=== PATIENT | male | born 1940 | race Caucasian/White ===

== ENCOUNTER 2016-05-16 04:46 | Inpatient (IN) | payer OTHER, MEDICARE ==
--- NOTE | 2016-05-16 05:10 | PDOC ---
History of Present Illness - General History Source: Patient Exam Limitations: No Limitations - History of Present Illness Initial Comments: 05/16/16 05:17 The patient is a 75 year old male with a significant PMH of hyperlipidemia, diet controlled prediabetes, obesity, peripheral neuropathy presented to the ED today complaining of generalized weakness. The patient recounts that hes had two falls within the last day. The first occurred 24 hours ago while he was in the shower and the second occurred when he rolled out of bed. The patient recalls both falls. He denies LOC and hitting his head. He states that his knees buckled out from under him. The patient also notes occasional sharp chest pain. Denies: nausea, vomiting, diarrhea, abdominal pain. PCP: Dr. Omar Lovett <Emili Mercer - Last Filed: 05/16/16 05:21> <Freya Cardenas - Last Filed: 05/16/16 06:48> - General History Source: Patient <Fan Gandara - Last Filed: 05/16/16 19:37> - General Chief Complaint: Injury Stated Complaint: FALL Time Seen by Provider: 05/16/16 04:59 Past History <Emili Mercer - Last Filed: 05/16/16 05:21> <Freya Cardenas - Last Filed: 05/16/16 06:48> - Past Medical History Anemia: No Asthma: No Cancer: Yes (PROSTATE) Cardiac Disorders: No CVA: No COPD: No CHF: No Dementia: No Diabetes: Yes (Borderline, peripheral neuropathy) GI Disorders: Yes (COLON POLYPS) Disorders: No HTN: Yes Hypercholesterolemia: Yes Liver Disease: No Seizures: No Thyroid Disease: No Other medical history: arthritis r-knee, scoliosis - Surgical History Abdominal Surgery: No Appendectomy: No Cardiac Surgery: No Cholecystectomy: No Lung Surgery: No Neurologic Surgery: No Orthopedic Surgery: Yes (Bilaterl wrist, HIP FRACTURE 2011) - Immunization History Immunization Up to Date: Yes - Psycho/Social/Smoking Cessation Hx Suicidal Ideation: No Smoking Status: No Smoking History: Unknown if ever smoked Have you smoked in the past 12 months: No Number of Cigarettes Smoked Daily: 0 If you are a former smoker, when did you quit?: 1984 Hx Alcohol Use: No Drug/Substance Use Hx: No Substance Use Type: None Hx Substance Use Treatment: No <Fan Gandara - Last Filed: 05/16/16 19:37> - Past Medical History Allergies/Adverse Reactions: Allergies Allergy/AdvReac Type Severity Reaction Status Date / Time No Known Allergies Allergy Verified 04/14/12 09:57 Home Medications: Ambulatory Orders Cholecalciferol (Vitamin D3) [Vitamin D] 1,000 unit PO DAILY 04/14/12 Cyanocobalamin [Vitamin B12 -] 1,000 mcg PO DAILY 04/14/12 Pravastatin Sodium [Pravachol -] 20 mg PO HS #0 tablet 04/23/12 Ascorbate Calcium [Vitamin C] 1,000 mg PO DAILY 02/21/15 Docosahexanoic Acid/Epa [Fish Oil Softgel] 1,200 mg PO DAILY 02/21/15 Multivit-Min/FA/Lycopene/Lut [Centrum Silver Tablet] 1 each PO DAILY 02/21/15 Ramipril 2.5 mg PO DAILY 02/21/15 Aspirin [ASA -] 81 mg PO DAILY #0 tab.chew 02/22/15 Alendronate Sodium [Fosamax] 70 mg PO WEEKLY 05/16/16 Multivit-Min/FA/Lycopene/Lut [Centrum Silver Tablet] 1 each PO DAILY 05/16/16 Review of Systems - Review of Systems Able to Perform ROS?: Yes Comments:: 05/16/16 05:17 CONSTITUTIONAL: +Generalized weakness. Absent: fever, chills, diaphoresis, malaise, loss of appetite HEENT: Absent: rhinorrhea, nasal congestion, throat pain, throat swelling, difficulty swallowing, mouth swelling, ear pain, eye pain, visual Changes CARDIOVASCULAR: Absent: chest pain, syncope, palpitations, irregular heart rate, lightheadedness , peripheral edema RESPIRATORY: Absent: cough, shortness of breath, dyspnea with exertion, orthopnea, wheezing, stridor, hemoptysis GASTROINTESTINAL: Absent: abdominal pain, abdominal distension, nausea, vomiting, diarrhea, constipation, melena, hematochezia GENITOURINARY: Absent: dysuria, frequency, urgency, hesitancy, hematuria, flank pain, genital pain MUSCULOSKELETAL: Absent: myalgia, arthralgia, joint swelling SKIN: Absent: rash, itching, pallor NEUROLOGIC: Absent: headache, focal weakness or paresthesias, dizziness, unsteady gait, seizure, mental status changes, bladder or bowel incontinence PSYCHIATRIC: Absent: anxiety, depression, suicidal or homicidal ideation, hallucinations. Is the patient limited Indonesian proficient: No <Emili Mercer - Last Filed: 05/16/16 05:21> *Physical Exam - Vital Signs Last Vital Signs Temp Pulse Resp BP Pulse Ox 98.3 F 93 H 18 131/74 97 05/16/16 05:00 05/16/16 05:00 05/16/16 05:00 05/16/16 05:00 05/16/16 05:00 - Physical Exam Comments: 05/16/16 05:18 GENERAL: Well developed, well nourished. Awake and alert. No acute distress. HEENT: Normocephalic, atraumatic. PERRLA, EOMI. No conjunctival pallor. Sclera are non- icteric. Moist mucous membranes. Oropharynx is clear. No raccoon or martin sign.No hemotympanum. NECK: Supple. Full ROM. No JVD. Carotid pulses 2+ and symmetric, without bruits. No thyromegaly. No lymphadenopathy. No C spine tenderness. CARDIOVASCULAR: Regular rate and rhythm. No murmurs, rubs, or gallops. Distal pulses are 2+ and symmetric. No chest wall crepitus. PULMONARY: No evidence of respiratory distress. Lungs clear to auscultation bilaterally. No wheezing, rales or rhonchi. ABDOMINAL: Soft. Non-tender. Non-distended. No rebound or guarding. No organomegaly. Normoactive bowel sounds. MUSCULOSKELETAL Normal range of motion at all joints. No bony deformities or tenderness. No CVA tenderness. Pelvis is stable. Negative rock. EXTREMITIES: No cyanosis. No clubbing. No edema. No calf tenderness. SKIN: Warm and dry. Normal capillary refill. No rashes. No jaundice. NEUROLOGICAL: Alert, awake, appropriate. Cranial nerves 2-12 intact. No deficits to light touch and temperature in face. PSYCHIATRIC: Cooperative. Good eye contact. Appropriate mood and affect. <Emili Mercer - Last Filed: 05/16/16 05:21> - Vital Signs Last Vital Signs Temp Pulse Resp BP Pulse Ox 98.3 F 93 H 18 131/74 97 05/16/16 05:00 05/16/16 05:00 05/16/16 05:00 05/16/16 05:00 05/16/16 05:00 <Freya Cardenas - Last Filed: 05/16/16 06:48> - Vital Signs Last Vital Signs Temp Pulse Resp BP Pulse Ox 98.3 F 93 H 18 131/74 97 05/16/16 05:00 05/16/16 05:00 05/16/16 05:00 05/16/16 05:00 05/16/16 05:00 <Fan Gandara - Last Filed: 05/16/16 19:37> Heart Score/ECG Review - ECG Impressions Comment:: 05/16/16 05:21 Sinus rhythm with 1st degree AV block @ 92 bpm. Otherwise normal ECG. <Emili Mercer - Last Filed: 05/16/16 05:21> ED Treatment Course - LABORATORY CBC & Chemistry Diagram: 05/16/16 05:16 05/16/16 05:16 - ADDITIONAL ORDERS Additional order review: Laboratory Results 05/16/16 05:16 INR 1.16 H 05/16/16 05:16 RBC 4.78 D MCV 93.5 MCHC 32.7 RDW 14.2 MPV 7.3 L Neutrophils % 83.4 H Lymphocytes % 8.5 D Monocytes % 7.3 Eosinophils % 0.4 D Basophils % 0.4 - RADIOLOGY Radiograph Interpretation: 05/16/16 06:48 EXAM: CT brain without contrast Reviewed by Imaging care consultant: FINDINGS: Involutional changes. No bleed. No mass. No visible acute infarct. No shift or herniation. Osseous structures are intact. EXAM: CT cervical spine without contrast Reviewed by Imaging care consultant: FINDINGS: Negative for cervical fracture or malalignment. EXAM: CT lumbar spine without contrast Reviewed by Imaging care consultant: FINDINGS: Negative for lumbar fracture or malalignment. No definite disc herniations. <Freya Cardenas - Last Filed: 05/16/16 06:48> - LABORATORY CBC & Chemistry Diagram: 05/16/16 05:16 05/16/16 05:16 <Fan Gandara - Last Filed: 05/16/16 19:37> Medical Decision Making - Medical Decision Making 05/16/16 19:37 Dr. Gandara: The scribe's documentation has been prepared under my direction and personally reviewed by me in its entirery. I confirm that the note above accurately reflects all work, treatment, procedures, and medical decision making performed by me. <Fan Gandara - Last Filed: 05/16/16 19:37> *DC/Admit/Observation/Transfer - Attestations Scribe Attestion: 05/16/16 05:18 Documentation prepared by Emili Mercer, acting as medical sales associate for Fan Gandara MD/DO. <Emili Mercer - Last Filed: 05/16/16 05:21> <Freya Cardenas - Last Filed: 05/16/16 06:48> <Fan Gandara - Last Filed: 05/16/16 19:37> Diagnosis at time of Disposition: Unable to ambulate Accidental fall Qualifiers: Encounter type: initial encounter Qualified Code(s): W19.XXXA - Unspecified fall, initial encounter - Discharge Dispostion Condition at time of disposition: Stable - Referrals
[2016-05-16 05:35] VITALS: BMI 34.8
[2016-05-16 05:54] LABS: BASOPHIL 0.4 % (0-2.0); EOSINOPHIL 0.4 % (0-4.5); MCH 30.6 pg (25.7-33.7); MCHC 32.7 g/dl (32.0-35.9); MEAN CELL VOLUME 93.5 fl (80-96); MEAN PLT VOLUME 7.3 fl (7.5-11.1); NEUTROPHILS 83.4 % (42.8-82.8); PLATELET COUNT 208 K/MM3 (134-434); RDW 14.2 % (11.9-15.9); WHITE BLOOD COUNT 11.3 K/mm3 (4.0-10.0)
[2016-05-16 06:11] LABS: INR 1.16 (0.82-1.09); PROTHROMBIN TIME (PATIENT) 12.8 SEC (9.98-11.88)
[2016-05-16 06:51] LABS: URINE APPEARANCE CLEAR; URINE BILIRUBIN NEGATIVE (NEGATIVE); URINE BLOOD NEGATIVE (NEGATIVE); URINE COLOR YELLOW; URINE GLUCOSE (UA) NEGATIVE (NEGATIVE); URINE KETONE 1+ (NEGATIVE); URINE LEUK ESTERASE NEGATIVE (NEGATIVE); URINE NITRITE NEGATIVE (NEGATIVE); URINE PROTEIN NEGATIVE (NEGATIVE); URINE UROBILINOGEN NEGATIVE E.U./dl (0.2-1.0)
[2016-05-16 07:00] LABS: ALBUMIN 3.8 g/dl (3.4-5.0); ALK PHOS 62 U/L (45-117); ANION GAP 7 (8-16); BILIRUBIN,TOTAL 0.9 mg/dL (0.2-1.0); CALCIUM 8.7 mg/dL (8.5-10.1); CO2 27 mmol/L (21-32); CREATININE 0.9 mg/dL (0.7-1.3); GLUCOSE,RANDOM 160 mg/dL (74-106); MAGNESIUM 2.2 mg/dL (1.8-2.4); SGOT/AST 21 U/L (15-37); SGPT/ALT 28 U/L (12-78); TOT PROT 6.6 g/dl (6.4-8.2)
[2016-05-16 07:03] LABS: TROPONIN I 0.02 ng/ml (0.00-0.05)
--- NOTE | 2016-05-16 08:27 | PDOC ---
*Physical Exam - Vital Signs Last Vital Signs Temp Pulse Resp BP Pulse Ox 98.3 F 93 H 18 131/74 97 05/16/16 05:00 05/16/16 05:00 05/16/16 05:00 05/16/16 05:00 05/16/16 05:00 - Physical Exam Comments: 05/16/16 08:24 Vital signs normal. Exam unchanged, limited range of motion of the legs secondary to generalized pain, no focal tenderness or deformity Neurovascularly intact ED Treatment Course - LABORATORY CBC & Chemistry Diagram: 05/16/16 05:16 05/16/16 05:16 - ADDITIONAL ORDERS Additional order review: Laboratory Results 05/16/16 05/16/16 05/16/16 06:42 05:16 05:16 INR 1.16 H Sodium 138 Potassium 4.6 Chloride 104 Carbon Dioxide 27 Anion Gap 7 L BUN 18 Creatinine 0.9 D Creat Clearance w eGFR > 60 Random Glucose 160 H Calcium 8.7 Magnesium 2.2 Total Bilirubin 0.9 D AST 21 D ALT 28 D Alkaline Phosphatase 62 D Creatine Kinase 448 H CK-MB (CK-2) 5.133 H Troponin I 0.02 Total Protein 6.6 Albumin 3.8 D Lipase 117 Urine Color Yellow Urine Appearance Clear Urine pH 6.0 Ur Specific [place] 1.019 Urine Protein Negative Urine Glucose (UA) Negative Urine Ketones 1+ H Urine Blood Negative Urine Nitrite Negative Urine Bilirubin Negative Urine Urobilinogen Negative Ur Leukocyte Esterase Negative Alcohol, Quantitative Blood Type Antibody Screen 05/16/16 05/16/16 05:16 05:16 INR Sodium Potassium Chloride Carbon Dioxide Anion Gap BUN Creatinine Creat Clearance w eGFR Random Glucose Calcium Magnesium Total Bilirubin AST ALT Alkaline Phosphatase Creatine Kinase CK-MB (CK-2) Troponin I Total Protein Albumin Lipase Urine Color Urine Appearance Urine pH Ur Specific [place] Urine Protein Urine Glucose (UA) Urine Ketones Urine Blood Urine Nitrite Urine Bilirubin Urine Urobilinogen Ur Leukocyte Esterase Alcohol, Quantitative < 5.0 Blood Type O POSITIVE Antibody Screen Negative 05/16/16 05:16 RBC 4.78 D MCV 93.5 MCHC 32.7 RDW 14.2 MPV 7.3 L Neutrophils % 83.4 H Lymphocytes % 8.5 D Monocytes % 7.3 Eosinophils % 0.4 D Basophils % 0.4 Medical Decision Making - Medical Decision Making 05/16/16 08:24 Received signout on this 75-year-old male who presented with 2 falls yesterday, limited ability now to ambulate independently secondary to generalized weakness and pain. Trauma imaging including head CT, cervical spine CT, and lumbar spine CT showed no acute abnormalities. Chest x-ray showed no acute abnormalities. Plan at signout was to follow-up labs and admit given his inability to ambulate. Labs are within normal limits, white count 11.3, CK slightly elevated likely from falls, troponin negative. Urinalysis clear. Will proceed with admission, Dr. Lovett's service contacted. 05/16/16 09:27 Accepted for inpatient med/surg by Dr. Sevilla. Added pelvis xray given h/o THR and falls. *DC/Admit/Observation/Transfer Diagnosis at time of Disposition: Unable to walk Accidental fall Qualifiers: Encounter type: initial encounter Qualified Code(s): W19.XXXA - Unspecified fall, initial encounter - Discharge Dispostion Admit: Yes - Referrals Referrals: Omar Lovett MD [Primary Care Provider] - - Patient Instructions - Post Discharge Activity
[2016-05-16 09:00] LABS: ACETONE SERUM NEGATIVE (NEGATIVE)
[2016-05-16] MEDS ORDERED: ONDANSETRON 4 MG/2 ML VIAL IVPB PRN (10:00)
--- NOTE | 2016-05-16 10:08 | HP ---
Admitting History and Physical - Primary Care Physician PCP: Omar Lovett - Admission Chief Complaint: I fell History of Present Illness: Mr Villalba is a 75 year old male who comes in with repeated falls. He was taking a shower yesterday and had a mechanical slip with a fall. He states both his legs went different ways. He did not hit his head, he did not have syncope or loss of consciousness. He was unable to get up and required the fire department to get him up. He was helped to bed and while he was lying in bed he rolled off the bed and had a second fall. Again there was no head trauma. After this he came in. He says he hurts "everywhere" and cannot tell me if one area hurts more than the other. He says he hurts in his back, chest, abdomen, arms, and legs. He denies lightheadedness, chest pressure, shortness of breath, nausea , vomiting, diarrhea, constipation, difficulty or pain on urination. He says his right leg is chronically swollen and the fire department noted his left leg was swollen yesterday. History Source: Patient Limitations to Obtaining History: No Limitations - Past Medical History Cardiovascular: Yes: HTN Renal/: Yes: Other (prostate cancer) Musculoskeletal: Yes: Other (neuropathy) Endocrine: Yes: Diabetes Mellitus (diet controlled) - Past Surgical History Past Surgical History: Yes: Joint Replacement (R hip) - Smoking History Smoking history: Unknown if ever smoked Have you smoked in the past 12 months: No Aproximately how many cigarettes per day: 0 If you are a former smoker, when did you quit?: 1984 - Alcohol/Substance Use Hx Alcohol Use: No History of Substance Use: reports: None - Social History Usual Living Arrangement: Yes: Alone ADL: Independent History of Recent Travel: No Home Medications - Allergies Allergies/Adverse Reactions: Allergies Allergy/AdvReac Type Severity Reaction Status Date / Time No Known Allergies Allergy Verified 04/14/12 09:57 - Home Medications Home Medications: Ambulatory Orders Cholecalciferol (Vitamin D3) [Vitamin D] 1,000 unit PO DAILY 04/14/12 Cyanocobalamin [Vitamin B12 -] 1,000 mcg PO DAILY 04/14/12 Pravastatin Sodium [Pravachol -] 20 mg PO HS #0 tablet 04/23/12 Ascorbate Calcium [Vitamin C] 1,000 mg PO DAILY 02/21/15 Docosahexanoic Acid/Epa [Fish Oil Softgel] 1,200 mg PO DAILY 02/21/15 Multivit-Min/FA/Lycopene/Lut [Centrum Silver Tablet] 1 each PO DAILY 02/21/15 Ramipril 2.5 mg PO DAILY 02/21/15 Alendronate Sodium [Fosamax] 70 mg PO ASDIR 02/22/15 Aspirin [ASA -] 81 mg PO DAILY #0 tab.chew 02/22/15 Alendronate Sodium [Fosamax] 70 mg PO WEEKLY 05/16/16 Multivit-Min/FA/Lycopene/Lut [Centrum Silver Tablet] 1 each PO DAILY 05/16/16 Family Disease History - Family Disease History Family Disease History: Other: Father (, unknown causes), Mother ( , unknown causes) Review of Systems Findings/Remarks: Full review of systems obtained, as per HPI and otherwise negative Physical Examination Vital Signs: Vital Signs Temperature 98.3 F 05/16/16 05:00 Pulse Rate 96 H 05/16/16 08:33 Respiratory Rate 19 05/16/16 08:33 Blood Pressure 116/76 05/16/16 08:33 O2 Sat by Pulse Oximetry (%) 97 05/16/16 08:33 Constitutional: Yes: No Distress, Calm, Obese Eyes: Yes: Conjunctiva Clear, EOM Intact HENT: Yes: Atraumatic, Normocephalic Cardiovascular: Yes: Regular Rate and Rhythm. No: Gallop, Murmur, Rub Respiratory: Yes: Regular, CTA Bilaterally. No: Rales, Rhonchi, Wheezes Gastrointestinal: Yes: Normal Bowel Sounds, Soft. No: Distention, Tenderness Extremities: Yes: Erythema Edema: Yes Edema: LLE: Trace, RLE: Trace Labs: Laboratory Results - last 24 hr 05/16/16 05/16/16 05/16/16 05:16 05:16 05:16 WBC 11.3 H RBC 4.78 D Hgb 14.6 D Hct 44.7 D MCV 93.5 MCHC 32.7 RDW 14.2 Plt Count 208 D MPV 7.3 L Neutrophils % 83.4 H Lymphocytes % 8.5 D Monocytes % 7.3 Eosinophils % 0.4 D Basophils % 0.4 INR Sodium Potassium Chloride Carbon Dioxide Anion Gap BUN Creatinine Creat Clearance w eGFR Random Glucose Calcium Magnesium Total Bilirubin AST ALT Alkaline Phosphatase Creatine Kinase Creatine Kinase Index CK-MB (CK-2) CK-MB (CK-2) Rel Index Troponin I Total Protein Albumin Lipase Urine Color Urine Appearance Urine pH Ur Specific [place] Urine Protein Urine Glucose (UA) Urine Ketones Urine Blood Urine Nitrite Urine Bilirubin Urine Urobilinogen Ur Leukocyte Esterase Alcohol, Quantitative < 5.0 Acetone, Qual Blood Type O POSITIVE Antibody Screen Negative 05/16/16 05/16/16 05/16/16 05:16 05:16 05:16 WBC RBC Hgb Hct MCV MCHC RDW Plt Count MPV Neutrophils % Lymphocytes % Monocytes % Eosinophils % Basophils % INR 1.16 H Sodium 138 Potassium 4.6 Chloride 104 Carbon Dioxide 27 Anion Gap 7 L BUN 18 Creatinine 0.9 D Creat Clearance w eGFR > 60 Random Glucose 160 H Calcium 8.7 Magnesium 2.2 Total Bilirubin 0.9 D AST 21 D ALT 28 D Alkaline Phosphatase 62 D Creatine Kinase 448 H Creatine Kinase Index 1.2 CK-MB (CK-2) 5.133 H CK-MB (CK-2) Rel Index Cancelled Troponin I 0.02 Total Protein 6.6 Albumin 3.8 D Lipase 117 Urine Color Urine Appearance Urine pH Ur Specific [place] Urine Protein Urine Glucose (UA) Urine Ketones Urine Blood Urine Nitrite Urine Bilirubin Urine Urobilinogen Ur Leukocyte Esterase Alcohol, Quantitative Acetone, Qual Negative Blood Type Antibody Screen 05/16/16 06:42 WBC RBC Hgb Hct MCV MCHC RDW Plt Count MPV Neutrophils % Lymphocytes % Monocytes % Eosinophils % Basophils % INR Sodium Potassium Chloride Carbon Dioxide Anion Gap BUN Creatinine Creat Clearance w eGFR Random Glucose Calcium Magnesium Total Bilirubin AST ALT Alkaline Phosphatase Creatine Kinase Creatine Kinase Index CK-MB (CK-2) CK-MB (CK-2) Rel Index Troponin I Total Protein Albumin Lipase Urine Color Yellow Urine Appearance Clear Urine pH 6.0 Ur Specific [place] 1.019 Urine Protein Negative Urine Glucose (UA) Negative Urine Ketones 1+ H Urine Blood Negative Urine Nitrite Negative Urine Bilirubin Negative Urine Urobilinogen Negative Ur Leukocyte Esterase Negative Alcohol, Quantitative Acetone, Qual Blood Type Antibody Screen Imaging - Results Chest X-ray: Report Reviewed, Image Reviewed X-ray: Report Reviewed Cat Scan: Report Reviewed Problem List - Problems (1) Accidental fall Assessment/Plan: -patient with mechanical fall -awaiting hip/pelvis x-ray for possible fracture -admit to the hospital -pain control -PT consult Code(s): W19.XXXA - UNSPECIFIED FALL, INITIAL ENCOUNTER Qualifiers: Encounter type: initial encounter Qualified Code(s): W19.XXXA - Unspecified fall, initial encounter (2) Edema Assessment/Plan: -with chronic RLE, now new LLE -? if fracture -lower suspicion for DVT but will check duplex dopplers as well Code(s): R60.9 - EDEMA, UNSPECIFIED (3) HTN (hypertension) Assessment/Plan: -well controlled -continue ramipril Code(s): I10 - ESSENTIAL (PRIMARY) HYPERTENSION (4) Diabetes Assessment/Plan: -diet controlled -follow glucose on bmp -if significantly elevated, will start FSBS -diabetic diet Code(s): E11.9 - TYPE 2 DIABETES MELLITUS WITHOUT COMPLICATIONS
--- NOTE | 2016-05-16 10:51 | EKG ---
Test Reason : Blood Pressure : / mmHG Vent. Rate : 092 BPM Atrial Rate : 092 BPM P-R Int : 000 ms QRS Dur : 114 ms QT Int : 350 ms P-R-T Axes : 000 045 035 degrees QTc Int : 432 ms SINUS RHYTHM WITH 1ST DEGREE A-V BLOCK OTHERWISE NORMAL ECG WHEN COMPARED WITH ECG OF 17-APR-2012 12:39, [place] INTERVAL HAS DECREASED Confirmed by LEONARD BENTON, MANN ([id number]) on 05/16/2016 10:50:58 AM Referred By: Confirmed By:MANN VALLE MD
[2016-05-16] MEDS: POLYETHYLENE GLYCOL 3350 119 GM BTL PO SCH (10:59)
[2016-05-16] MEDS: CYANOCOBALAMIN 1,000 MCG TABLET (FP) PO SCH (10:59)
[2016-05-16] MEDS: CHOLECALCIFEROL (VITAMIN D3) 1,000 UNIT TABLET (FP) PO SCH (10:59)
[2016-05-16] MEDS: RAMIPRIL 2.5 MG CAPSULE (FP) PO SCH (10:59)
[2016-05-16] MEDS: HEPARIN NA (PORCINE) 5,000 UNITS/ML 1ML VIAL SQ SCH ×2 (10:59→18:12)
[2016-05-16] MEDS: DOCUSATE SODIUM 100 MG CAPSULE (FP) PO SCH ×2 (10:59→21:58)
[2016-05-16] MEDS: ASCORBIC ACID 500 MG TABLET (FP) PO SCH (10:59)
[2016-05-16] MEDS ORDERED: RAMIPRIL 5 MG CAPSULE (FP) ONE (11:06)
[2016-05-16] MEDS ORDERED: DOCUSATE SODIUM 100 MG CAPSULE (FP) PO ONE (11:07)
[2016-05-16] MEDS ORDERED: HEPARIN NA (PORCINE) 5,000 UNITS/ML 1ML VIAL ONE (11:07)
[2016-05-16] MEDS ORDERED: ALBUTEROL SO4 2.5/IPRATROPIUM 0.5 INH SOL 3 ML VIAL.NEB. NEB PRN (13:08)
[2016-05-16] MEDS: ATORVASTATIN CA 10 MG TABLET (FP) PO SCH (21:58)
[2016-05-17] MEDS: HEPARIN NA (PORCINE) 5,000 UNITS/ML 1ML VIAL SQ SCH ×3 (02:35→17:07)
[2016-05-17 08:29] LABS: BASOPHIL 0.4 % (0-2.0); EOSINOPHIL 0.9 % (0-4.5); MCH 31.9 pg (25.7-33.7); MEAN CELL VOLUME 93.7 fl (80-96); MEAN PLT VOLUME 7.5 fl (7.5-11.1); NEUTROPHILS 76.6 % (42.8-82.8); PLATELET COUNT 194 K/MM3 (134-434); WHITE BLOOD COUNT 8.7 K/mm3 (4.0-10.0)
[2016-05-17 09:02] LABS: CALCIUM 8.4 mg/dL (8.5-10.1); CREATININE 0.7 mg/dL (0.7-1.3); MAGNESIUM 2.3 mg/dL (1.8-2.4); PHOSPHOROUS 2.6 mg/dL (2.5-4.9)
[2016-05-17] MEDS: CHOLECALCIFEROL (VITAMIN D3) 1,000 UNIT TABLET (FP) PO SCH (09:07)
[2016-05-17] MEDS: DOCUSATE SODIUM 100 MG CAPSULE (FP) PO SCH ×2 (09:07→21:48)
[2016-05-17] MEDS: ASCORBIC ACID 500 MG TABLET (FP) PO SCH (09:07)
[2016-05-17] MEDS: CYANOCOBALAMIN 1,000 MCG TABLET (FP) PO SCH (09:08)
[2016-05-17] MEDS: POLYETHYLENE GLYCOL 3350 119 GM BTL PO SCH (09:13)
[2016-05-17] MEDS: oxyCODONE HCL 5 MG TABLET PO PRN (09:22)
[2016-05-17] MEDS: RAMIPRIL 2.5 MG CAPSULE (FP) PO SCH (09:23)
--- NOTE | 2016-05-17 16:47 | PN ---
Progress Note, Physician Chief Complaint: Mr Villalba says he is feeling better today, his pain is better controlled. However he had a difficult time with PT. No cp, sob, n/v. - Current Medication List Current Medications: Active Medications Acetaminophen (Tylenol -) 650 mg PO Q4H PRN PRN Reason: FEVER OR PAIN Albuterol/Ipratropium (Duoneb -) 1 amp NEB Q6H PRN PRN Reason: SHORTNESS OF BREATH Ascorbic Acid (Vitamin C -) 1,000 mg PO DAILY [facility] Last Admin: 05/17/16 09:07 Dose: 1,000 mg Atorvastatin Calcium (Lipitor -) 10 mg PO HS [facility] Last Admin: 05/16/16 21:58 Dose: 10 mg Cholecalciferol (Vitamin D3 -) 1,000 unit PO DAILY [facility] Last Admin: 05/17/16 09:07 Dose: 1,000 unit Cyanocobalamin (Vitamin B12 -) 1,000 mcg PO DAILY [facility] Last Admin: 05/17/16 09:08 Dose: 1,000 mcg Docusate Sodium (Colace -) 100 mg PO BID [facility] Last Admin: 05/17/16 09:07 Dose: 100 mg Heparin Sodium (Porcine) (Heparin -) 5,000 unit SQ Q8H-IV [facility] Last Admin: 05/17/16 09:24 Dose: 5,000 unit Ondansetron HCl (Zofran Injection) 4 mg IVPB Q6H PRN PRN Reason: NAUSEA Oxycodone HCl (Roxicodone -) 5 mg PO Q4H PRN PRN Reason: PAIN Last Admin: 05/17/16 09:22 Dose: 5 mg Polyethylene Glycol (Miralax (For Daily Use) -) 17 gm PO DAILY [facility] Last Admin: 05/17/16 09:13 Dose: 17 gm Ramipril (Altace -) 2.5 mg PO DAILY [facility] Last Admin: 05/17/16 09:23 Dose: 2.5 mg - Objective Vital Signs: Vital Signs Temperature 99.7 F H 05/17/16 14:10 Pulse Rate 99 H 05/17/16 14:10 Respiratory Rate 22 05/17/16 14:10 Blood Pressure 116/64 05/17/16 14:10 O2 Sat by Pulse Oximetry (%) 94 L 05/17/16 09:00 Constitutional: Yes: Well Nourished, No Distress, Calm Cardiovascular: Yes: Regular Rate and Rhythm. No: Gallop, Murmur, Rub Respiratory: Yes: Regular, CTA Bilaterally. No: Rales, Rhonchi, Wheezes Gastrointestinal: Yes: Normal Bowel Sounds, Soft. No: Distention, Tenderness Extremities: Yes: WNL Edema: No Labs: CBC, BMP 05/17/16 06:45 05/17/16 06:45 INR, PTT INR 1.16 (0.82-1.09) H 05/16/16 05:16 Problem List - Problems (1) Ruptured Bakers cyst Code(s): M66.0 - RUPTURE OF POPLITEAL CYST (2) Accidental fall Code(s): W19.XXXA - UNSPECIFIED FALL, INITIAL ENCOUNTER Qualifiers: Encounter type: initial encounter Qualified Code(s): W19.XXXA - Unspecified fall, initial encounter (3) Edema Code(s): R60.9 - EDEMA, UNSPECIFIED (4) HTN (hypertension) Code(s): I10 - ESSENTIAL (PRIMARY) HYPERTENSION (5) Diabetes Code(s): E11.9 - TYPE 2 DIABETES MELLITUS WITHOUT COMPLICATIONS Assessment/Plan (1) Ruptured Bakers Cyst -found on duplex dopplers -ortho consult -continue pain control (2) Accidental fall Assessment/Plan: -PT following Code(s): W19.XXXA - UNSPECIFIED FALL, INITIAL ENCOUNTER Qualifiers: Encounter type: initial encounter Qualified Code(s): W19.XXXA - Unspecified fall, initial encounter (3) Edema Assessment/Plan: -no fracture, ruptured bakers cyst -as above Code(s): R60.9 - EDEMA, UNSPECIFIED (4) HTN (hypertension) Assessment/Plan: -well controlled -continue ramipril Code(s): I10 - ESSENTIAL (PRIMARY) HYPERTENSION (5) Diabetes Assessment/Plan: -diet controlled -follow glucose on bmp -if significantly elevated, will start FSBS -diabetic diet Code(s): E11.9 - TYPE 2 DIABETES MELLITUS WITHOUT COMPLICATIONS (6) Diabetic neuropathy -Dr Lovett states patient has history of neuropathy -will check a HgbA1c -agree with neurology consult
[2016-05-17] MEDS: ATORVASTATIN CA 10 MG TABLET (FP) PO SCH (21:48)
[2016-05-18] MEDS: HEPARIN NA (PORCINE) 5,000 UNITS/ML 1ML VIAL SQ SCH ×3 (02:54→18:50)
--- NOTE | 2016-05-18 09:19 | CONSULT ---
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 Original Note: Consult Consult Specialty:: Ortho Reason for Consultation:: s/p multiple falls c/o right knee pain - Past Medical History Cardio/Vascular: Yes: HTN Renal/: Yes: Other (prostate cancer) Musculoskeletal: Yes: Other (neuropathy) Endocrine: Yes: Diabetes Mellitus (diet controlled) - Past Surgical History Past Surgical History: Yes: Joint Replacement (R hip) - Alcohol/Substance Use Hx Alcohol Use: No History of Substance Use: reports: None - Smoking History Smoking history: Unknown if ever smoked Have you smoked in the past 12 months: No Aproximately how many cigarettes per day: 0 If you are a former smoker, when did you quit?: 1984 - Social History ADL: Independent History of Recent Travel: No Home Medications - Allergies Allergies/Adverse Reactions: Allergies Allergy/AdvReac Type Severity Reaction Status Date / Time No Known Allergies Allergy Verified 04/14/12 09:57 - Home Medications Home Medications: Ambulatory Orders Cholecalciferol (Vitamin D3) [Vitamin D] 1,000 unit PO DAILY 04/14/12 Cyanocobalamin [Vitamin B12 -] 1,000 mcg PO DAILY 04/14/12 Pravastatin Sodium [Pravachol -] 20 mg PO HS #0 tablet 04/23/12 Ascorbate Calcium [Vitamin C] 1,000 mg PO DAILY 02/21/15 Docosahexanoic Acid/Epa [Fish Oil Softgel] 1,200 mg PO DAILY 02/21/15 Multivit-Min/FA/Lycopen/Lutein [Centrum Silver Tablet] 1 each PO DAILY 02/21/15 Ramipril 2.5 mg PO DAILY 02/21/15 Aspirin [ASA -] 81 mg PO DAILY #0 tab.chew 02/22/15 Alendronate Sodium [Fosamax] 70 mg PO WEEKLY 05/16/16 Multivit-Min/FA/Lycopen/Lutein [Centrum Silver Tablet] 1 each PO DAILY 05/16/16 Family Disease History - Family Disease History Family Disease History: Other: Father (, unknown causes), Mother ( , unknown causes) Physical Exam for Ortho Vital Signs: Vital Signs Temperature 99.3 F 05/18/16 06:00 Pulse Rate 88 05/18/16 06:00 Respiratory Rate 20 05/18/16 06:00 Blood Pressure 106/72 05/18/16 06:00 O2 Sat by Pulse Oximetry (%) 94 L 05/17/16 21:00 Labs: CBC, BMP 05/17/16 06:45 05/17/16 06:45 INR, PTT INR 1.16 (0.82-1.09) H 05/16/16 05:16 - Lower Extremity Knee: Yes: Right, Assymetrical, Limited ROM, Pain, Swelling, Tenderness, Other ( 2+ effusion, unable to SLR, nvi) Imaging - Results X-ray: Report Reviewed, Image Reviewed Cat Scan: Report Reviewed, Image Reviewed Assessment/Plan 75 year old male who comes in with repeated falls. He was taking a shower yesterday and had a mechanical slip with a fall. He states both his legs went different ways. He did not hit his head, he did not have syncope or loss of consciousness. He was unable to get up and required the fire department to get him up. He was helped to bed and while he was lying in bed he rolled off the bed and had a second fall. Again there was no head trauma. After this he came in. He says he hurts "everywhere" and cannot tell me if one area hurts more than the other. He says he hurts in his back, chest, abdomen, arms, and legs. He denies lightheadedness, chest pressure, shortness of breath, nausea, vomiting , diarrhea, constipation, difficulty or pain on urination. He says his right leg is chronically swollen and the fire department noted his left leg was swollen yesterday. a/p- Right knee effusion xrays ordered will advise once xrays are done pain control dvt ppx will follow d/w Dr. Pizarro
[2016-05-18] MEDS: DOCUSATE SODIUM 100 MG CAPSULE (FP) PO SCH ×2 (11:26→21:54)
[2016-05-18] MEDS: oxyCODONE HCL 5 MG TABLET PO PRN (11:26)
[2016-05-18] MEDS: CHOLECALCIFEROL (VITAMIN D3) 1,000 UNIT TABLET (FP) PO SCH (11:28)
[2016-05-18] MEDS: RAMIPRIL 2.5 MG CAPSULE (FP) PO SCH (11:28)
[2016-05-18] MEDS: ASCORBIC ACID 500 MG TABLET (FP) PO SCH (11:29)
[2016-05-18] MEDS: CYANOCOBALAMIN 1,000 MCG TABLET (FP) PO SCH (11:29)
[2016-05-18] MEDS: POLYETHYLENE GLYCOL 3350 119 GM BTL PO SCH (11:35)
--- NOTE | 2016-05-18 15:10 | PN ---
Progress Note (short form) - Note Progress Note: Ortho Pt seen and examined c/o bilateral knee pain r>l + effusion, + ttp over quad insertion, unable to SLR or bear weight nvi a/p Under sterile technique the right knee was aspirated, 50 cc of blood was aspirated aspiration tolerated well. MRI to r/o quad tendon rupture f/u once MRI has been performed d/w DR. Pizarro
--- NOTE | 2016-05-18 16:36 | PN ---
Progress Note, Physician Chief Complaint: Mr Villalba says he does not have pain when he lies still, but has pain with movement. No cp, sob, n/v. - Current Medication List Current Medications: Active Medications Acetaminophen (Tylenol -) 650 mg PO Q4H PRN PRN Reason: FEVER OR PAIN Albuterol/Ipratropium (Duoneb -) 1 amp NEB Q6H PRN PRN Reason: SHORTNESS OF BREATH Ascorbic Acid (Vitamin C -) 1,000 mg PO DAILY [facility] Last Admin: 05/18/16 11:29 Dose: 1,000 mg Atorvastatin Calcium (Lipitor -) 10 mg PO HS [facility] Last Admin: 05/17/16 21:48 Dose: 10 mg Cholecalciferol (Vitamin D3 -) 1,000 unit PO DAILY [facility] Last Admin: 05/18/16 11:28 Dose: 1,000 unit Cyanocobalamin (Vitamin B12 -) 1,000 mcg PO DAILY [facility] Last Admin: 05/18/16 11:29 Dose: 1,000 mcg Docusate Sodium (Colace -) 100 mg PO BID [facility] Last Admin: 05/18/16 11:26 Dose: 100 mg Heparin Sodium (Porcine) (Heparin -) 5,000 unit SQ Q8H-IV [facility] Last Admin: 05/18/16 11:25 Dose: 5,000 unit Ondansetron HCl (Zofran Injection) 4 mg IVPB Q6H PRN PRN Reason: NAUSEA Oxycodone HCl (Roxicodone -) 5 mg PO Q4H PRN PRN Reason: PAIN Last Admin: 05/18/16 11:26 Dose: 5 mg Polyethylene Glycol (Miralax (For Daily Use) -) 17 gm PO DAILY [facility] Last Admin: 05/18/16 11:35 Dose: 17 gm Ramipril (Altace -) 2.5 mg PO DAILY [facility] Last Admin: 05/18/16 11:28 Dose: 2.5 mg - Objective Vital Signs: Vital Signs Temperature 97.8 F 05/18/16 15:24 Pulse Rate 91 H 05/18/16 15:24 Respiratory Rate 20 05/18/16 15:24 Blood Pressure 104/68 05/18/16 15:24 O2 Sat by Pulse Oximetry (%) 94 L 05/17/16 21:00 Constitutional: Yes: No Distress, Calm, Obese Cardiovascular: Yes: Regular Rate and Rhythm. No: Gallop, Murmur, Rub Respiratory: Yes: Regular, CTA Bilaterally. No: Rales, Rhonchi, Wheezes Gastrointestinal: Yes: Normal Bowel Sounds, Soft. No: Distention, Tenderness Extremities: Yes: WNL Edema: Yes Edema: LLE: Trace, RLE: Trace Labs: CBC, BMP 05/17/16 06:45 05/17/16 06:45 INR, PTT INR 1.16 (0.82-1.09) H 05/16/16 05:16 Problem List - Problems (1) Ruptured Bakers cyst Code(s): M66.0 - RUPTURE OF POPLITEAL CYST (2) Accidental fall Code(s): W19.XXXA - UNSPECIFIED FALL, INITIAL ENCOUNTER Qualifiers: Encounter type: initial encounter Qualified Code(s): W19.XXXA - Unspecified fall, initial encounter (3) Edema Code(s): R60.9 - EDEMA, UNSPECIFIED (4) HTN (hypertension) Code(s): I10 - ESSENTIAL (PRIMARY) HYPERTENSION (5) Diabetes Code(s): E11.9 - TYPE 2 DIABETES MELLITUS WITHOUT COMPLICATIONS Assessment/Plan (1) Ruptured Bakers Cyst -ortho consulted and note reviewed -? drainage of fluid in knee -await final recommendations (2) Accidental fall Assessment/Plan: -PT following Code(s): W19.XXXA - UNSPECIFIED FALL, INITIAL ENCOUNTER Qualifiers: Encounter type: initial encounter Qualified Code(s): W19.XXXA - Unspecified fall, initial encounter (3) Edema Assessment/Plan: -no fracture, ruptured bakers cyst -as above Code(s): R60.9 - EDEMA, UNSPECIFIED (4) HTN (hypertension) Assessment/Plan: -well controlled -continue ramipril Code(s): I10 - ESSENTIAL (PRIMARY) HYPERTENSION (5) Diabetes Assessment/Plan: -diet controlled -follow glucose on bmp -if significantly elevated, will start FSBS -diabetic diet Code(s): E11.9 - TYPE 2 DIABETES MELLITUS WITHOUT COMPLICATIONS (6) Diabetic neuropathy -Dr Lovett states patient has history of neuropathy -HgbA1c well controlled -awaiting neurology recommendations
--- NOTE | 2016-05-18 19:22 | CONSULT ---
Consult - History of Present Illness History of Present Illness: Mr Villalba is a 75 year old who slipped and fell in the shower. He denies any prodromal warning, vertigo or near syncope but simply slipped and fell. He notes he hurts all over but there is no rardicular pain in the UE or LE. - History Source Limitations to Obtaining History: No Limitations - Past Medical History Cardio/Vascular: Yes: HTN Renal/: Yes: Other (prostate cancer) Musculoskeletal: Yes: Other (neuropathy) Endocrine: Yes: Diabetes Mellitus (diet controlled) - Past Surgical History Past Surgical History: Yes: Joint Replacement (R hip) - Alcohol/Substance Use Hx Alcohol Use: No History of Substance Use: reports: None - Smoking History Smoking history: Unknown if ever smoked Have you smoked in the past 12 months: No Aproximately how many cigarettes per day: 0 If you are a former smoker, when did you quit?: 1984 - Social History ADL: Independent History of Recent Travel: No Home Medications - Allergies Allergies/Adverse Reactions: Allergies Allergy/AdvReac Type Severity Reaction Status Date / Time No Known Allergies Allergy Verified 04/14/12 09:57 - Home Medications Home Medications: Ambulatory Orders Cholecalciferol (Vitamin D3) [Vitamin D] 1,000 unit PO DAILY 04/14/12 Cyanocobalamin [Vitamin B12 -] 1,000 mcg PO DAILY 04/14/12 Pravastatin Sodium [Pravachol -] 20 mg PO HS #0 tablet 04/23/12 Ascorbate Calcium [Vitamin C] 1,000 mg PO DAILY 02/21/15 Docosahexanoic Acid/Epa [Fish Oil Softgel] 1,200 mg PO DAILY 02/21/15 Multivit-Min/FA/Lycopen/Lutein [Centrum Silver Tablet] 1 each PO DAILY 02/21/15 Ramipril 2.5 mg PO DAILY 02/21/15 Aspirin [ASA -] 81 mg PO DAILY #0 tab.chew 02/22/15 Alendronate Sodium [Fosamax] 70 mg PO WEEKLY 05/16/16 Multivit-Min/FA/Lycopen/Lutein [Centrum Silver Tablet] 1 each PO DAILY 05/16/16 Family Disease History - Family Disease History Family Disease History: Other: Father (, unknown causes), Mother ( , unknown causes) Physical Exam Vital Signs: Vital Signs Temperature 97.7 F 05/18/16 17:59 Pulse Rate 87 05/18/16 17:59 Respiratory Rate 20 05/18/16 17:59 Blood Pressure 125/77 05/18/16 17:59 O2 Sat by Pulse Oximetry (%) 91 L 05/18/16 10:00 Constitutional: Yes: Well Nourished, No Distress Eyes: Yes: EOM Intact HENT: Yes: Atraumatic Cardiovascular: Yes: Regular Rate and Rhythm Respiratory: Yes: Regular Gastrointestinal: Yes: Soft Neurological: Yes: Alert, Oriented, Babinski negative, Cran Nerves II-XII Intact (Motor 5/5 with normal tone, sensory intact to LT and vibration with decrease sensation to PP to ankles with absent ankle DTR, otherwise sensation and DTRs intact.). No: Aphasia, Ataxia, Confusion, Dysarthria, Facial Droop, Loss of Sensation, Numbness Labs: CBC, BMP 05/17/16 06:45 05/17/16 06:45 Assessment/Plan Slip and fall in the shower with no evidence of back injury with no radicualar pain or DTR loss Suggest PT and Balance/gait training inpatient and as outpatient. Would proceed with further evaluation of spine and PNS as outpatient with EMG/ NCVs and spine MRI if indicated.
[2016-05-18] MEDS: ATORVASTATIN CA 10 MG TABLET (FP) PO SCH (21:55)
[2016-05-18] MEDS: ACETAMINOPHEN 325 MG TABLET (FP) PO PRN (21:55)
[2016-05-18] MEDS ORDERED: HEPARIN NA (PORCINE) 5,000 UNITS/ML 1ML VIAL SQ SCH (22:00)
[2016-05-19] MEDS: HEPARIN NA (PORCINE) 5,000 UNITS/ML 1ML VIAL SQ SCH ×3 (06:11→21:47)
[2016-05-19] MEDS: ACETAMINOPHEN 325 MG TABLET (FP) PO PRN (06:13)
[2016-05-19 09:24] LABS: BASOPHIL 0.9 % (0-2.0); EOSINOPHIL 2.6 % (0-4.5); MCH 32.2 pg (25.7-33.7); MCHC 34.8 g/dl (32.0-35.9); MEAN CELL VOLUME 92.5 fl (80-96); MEAN PLT VOLUME 7.2 fl (7.5-11.1); NEUTROPHILS 66.8 % (42.8-82.8); PLATELET COUNT 202 K/MM3 (134-434); RDW 13.9 % (11.9-15.9); WHITE BLOOD COUNT 6.9 K/mm3 (4.0-10.0)
[2016-05-19] MEDS: RAMIPRIL 2.5 MG CAPSULE (FP) PO SCH (09:38)
[2016-05-19] MEDS: ASCORBIC ACID 500 MG TABLET (FP) PO SCH (09:38)
[2016-05-19] MEDS: DOCUSATE SODIUM 100 MG CAPSULE (FP) PO SCH ×2 (09:38→21:47)
[2016-05-19] MEDS: CHOLECALCIFEROL (VITAMIN D3) 1,000 UNIT TABLET (FP) PO SCH (09:38)
[2016-05-19] MEDS: CYANOCOBALAMIN 1,000 MCG TABLET (FP) PO SCH (09:38)
[2016-05-19] MEDS: POLYETHYLENE GLYCOL 3350 119 GM BTL PO SCH (09:45)
[2016-05-19 09:58] LABS: CALCIUM 8.6 mg/dL (8.5-10.1); CREATININE 0.8 mg/dL (0.7-1.3); MAGNESIUM 2.4 mg/dL (1.8-2.4); PHOSPHOROUS 3.2 mg/dL (2.5-4.9)
--- NOTE | 2016-05-19 14:03 | PN ---
Progress Note (short form) - Note Progress Note: Ortho Pt seen and examined c/o bilateral knee pain r>l less swelling, decr pain+ ttp over quad insertion, unable to SLR or bear weight nvi a/p MRI to r/o quad tendon rupture f/u once MRI has been performed d/w DR. Pizarro
--- NOTE | 2016-05-19 20:30 | PN ---
Progress Note (short form) - Note Progress Note: Cont to have pain in the knee No other complaints O/E Heart regular Lungs clear Abd soft Ext no edema Tenderness in b/l knee+ Vital Signs Period Temp Pulse Resp BP Sys/Espinosa Pulse Ox Last 24 Hr 98.0 F-98.7 F 82-90 20-22 122-141/76-82 93-94 Current Medications Acetaminophen (Tylenol -) 650 mg PO Q4H PRN PRN Reason: FEVER OR PAIN Last Admin: 05/19/16 06:13 Dose: 650 mg Albuterol/Ipratropium (Duoneb -) 1 amp NEB Q6H PRN PRN Reason: SHORTNESS OF BREATH Ascorbic Acid (Vitamin C -) 1,000 mg PO DAILY [facility] Last Admin: 05/19/16 09:38 Dose: 1,000 mg Atorvastatin Calcium (Lipitor -) 10 mg PO HS [facility] Last Admin: 05/18/16 21:55 Dose: 10 mg Cholecalciferol (Vitamin D3 -) 1,000 unit PO DAILY [facility] Last Admin: 05/19/16 09:38 Dose: 1,000 unit Cyanocobalamin (Vitamin B12 -) 1,000 mcg PO DAILY [facility] Last Admin: 05/19/16 09:38 Dose: 1,000 mcg Docusate Sodium (Colace -) 100 mg PO BID [facility] Last Admin: 05/19/16 09:38 Dose: 100 mg Heparin Sodium (Porcine) (Heparin -) 5,000 unit SQ TID [facility] Last Admin: 05/19/16 15:26 Dose: 5,000 unit Ondansetron HCl (Zofran Injection) 4 mg IVPB Q6H PRN PRN Reason: NAUSEA Oxycodone HCl (Roxicodone -) 5 mg PO Q4H PRN PRN Reason: PAIN Last Admin: 05/18/16 11:26 Dose: 5 mg Polyethylene Glycol (Miralax (For Daily Use) -) 17 gm PO DAILY [facility] Last Admin: 05/19/16 09:45 Dose: 17 gm Ramipril (Altace -) 2.5 mg PO DAILY [facility] Last Admin: 05/19/16 09:38 Dose: 2.5 mg Laboratory Results - last 24 hr 05/18/16 05/19/16 05/19/16 06:00 07:00 07:00 WBC 6.9 RBC 4.38 Hgb 14.1 Hct 40.5 MCV 92.5 MCHC 34.8 RDW 13.9 Plt Count 202 MPV 7.2 L Neutrophils % 66.8 Lymphocytes % 20.7 D Monocytes % 9.0 Eosinophils % 2.6 D Basophils % 0.9 Sodium 133 L Potassium 4.0 Chloride 106 Carbon Dioxide 28 Anion Gap -1 L BUN 17 D Creatinine 0.8 Random Glucose 132 H Calcium 8.6 Phosphorus 3.2 D Magnesium 2.4 Vitamin B12 448 Serum Folate 26 H Assessment/Plan (1) Ruptured Bakers Cyst -ortho consulted and note reviewed -? drainage of fluid in knee -MRI requested (2) Accidental fall Assessment/Plan: -PT following Code(s): W19.XXXA - UNSPECIFIED FALL, INITIAL ENCOUNTER Qualifiers: Encounter type: initial encounter Qualified Code(s): W19.XXXA - Unspecified fall, initial encounter (3) Edema Assessment/Plan: -no fracture, ruptured bakers cyst -as above Code(s): R60.9 - EDEMA, UNSPECIFIED (4) HTN (hypertension) Assessment/Plan: -well controlled -continue ramipril Code(s): I10 - ESSENTIAL (PRIMARY) HYPERTENSION (5) Diabetes Assessment/Plan: -diet controlled Code(s): E11.9 - TYPE 2 DIABETES MELLITUS WITHOUT COMPLICATIONS
[2016-05-19] MEDS: ATORVASTATIN CA 10 MG TABLET (FP) PO SCH (21:47)
[2016-05-20] MEDS: HEPARIN NA (PORCINE) 5,000 UNITS/ML 1ML VIAL SQ SCH ×3 (06:13→21:54)
[2016-05-20] MEDS: ASCORBIC ACID 500 MG TABLET (FP) PO SCH (10:15)
[2016-05-20] MEDS: CYANOCOBALAMIN 1,000 MCG TABLET (FP) PO SCH (10:15)
[2016-05-20] MEDS: CHOLECALCIFEROL (VITAMIN D3) 1,000 UNIT TABLET (FP) PO SCH (10:16)
[2016-05-20] MEDS: RAMIPRIL 2.5 MG CAPSULE (FP) PO SCH (10:16)
[2016-05-20] MEDS: POLYETHYLENE GLYCOL 3350 119 GM BTL PO SCH (10:16)
[2016-05-20] MEDS: DOCUSATE SODIUM 100 MG CAPSULE (FP) PO SCH ×2 (10:16→21:53)
[2016-05-20] MEDS: oxyCODONE HCL 5 MG TABLET PO PRN (12:35)
--- NOTE | 2016-05-20 13:58 | PN ---
Progress Note (short form) - Note Progress Note: Continues to have pain and swelling of the right and also the left knee No fever O/E Heart regular Lungs clear Ab soft Ext b/l knee effusion+ Vital Signs Period Temp Pulse Resp BP Sys/Espinosa Pulse Ox Last 24 Hr 98.0 F-98.7 F 80-87 19-21 122-129/72-82 93-95 Current Medications Acetaminophen (Tylenol -) 650 mg PO Q4H PRN PRN Reason: FEVER OR PAIN Last Admin: 05/19/16 06:13 Dose: 650 mg Albuterol/Ipratropium (Duoneb -) 1 amp NEB Q6H PRN PRN Reason: SHORTNESS OF BREATH Ascorbic Acid (Vitamin C -) 1,000 mg PO DAILY [facility] Last Admin: 05/20/16 10:15 Dose: 1,000 mg Atorvastatin Calcium (Lipitor -) 10 mg PO HS [facility] Last Admin: 05/19/16 21:47 Dose: 10 mg Cholecalciferol (Vitamin D3 -) 1,000 unit PO DAILY [facility] Last Admin: 05/20/16 10:16 Dose: 1,000 unit Cyanocobalamin (Vitamin B12 -) 1,000 mcg PO DAILY [facility] Last Admin: 05/20/16 10:15 Dose: 1,000 mcg Docusate Sodium (Colace -) 100 mg PO BID [facility] Last Admin: 05/20/16 10:16 Dose: 100 mg Heparin Sodium (Porcine) (Heparin -) 5,000 unit SQ TID [facility] Last Admin: 05/20/16 06:13 Dose: 5,000 unit Ondansetron HCl (Zofran Injection) 4 mg IVPB Q6H PRN PRN Reason: NAUSEA Oxycodone HCl (Roxicodone -) 5 mg PO Q4H PRN PRN Reason: PAIN Last Admin: 05/20/16 12:35 Dose: 5 mg Polyethylene Glycol (Miralax (For Daily Use) -) 17 gm PO DAILY [facility] Last Admin: 05/20/16 10:16 Dose: 17 gm Ramipril (Altace -) 2.5 mg PO DAILY [facility] Last Admin: 05/20/16 10:16 Dose: 2.5 mg Assessment/Plan (1) Effusion of Knee -MRI Noted Cont prn pain meds and will await ortho Surgical intervention, physiotherapy (2) Accidental fall Assessment/Plan: -PT Code(s): W19.XXXA - UNSPECIFIED FALL, INITIAL ENCOUNTER Qualifiers: Encounter type: initial encounter Qualified Code(s): W19.XXXA - Unspecified fall, initial encounter (3) Edema Assessment/Plan: -no fracture, ruptured bakers cyst -as above Code(s): R60.9 - EDEMA, UNSPECIFIED (4) HTN (hypertension) Assessment/Plan: -well controlled -continue ramipril Code(s): I10 - ESSENTIAL (PRIMARY) HYPERTENSION (5) Diabetes Assessment/Plan: -diet controlled Code(s): E11.9 - TYPE 2 DIABETES MELLITUS WITHOUT COMPLICATIONS
[2016-05-20] MEDS: ATORVASTATIN CA 10 MG TABLET (FP) PO SCH (21:54)
[2016-05-21] MEDS: HEPARIN NA (PORCINE) 5,000 UNITS/ML 1ML VIAL SQ SCH ×3 (06:42→22:19)
--- NOTE | 2016-05-21 08:59 | PN ---
Progress Note (short form) - Note Progress Note: Ortho Pt seen and examined c/o bilateral knee pain r>l--> improving less swelling, decr pain, incr rom nvi MRI + severe djd, medial and lateral meniscus tear, chronic ACL rupture, large effusion, no evidence of quad tendon rupture a/p Risks and benefits were d/w pt in detail conservative vs surgical tx discussed would require right tkr as outpt if pain persists PT, wbat dvt ppx pain control d/c planning d/w Dr. Juan
[2016-05-21] MEDS: DOCUSATE SODIUM 100 MG CAPSULE (FP) PO SCH ×2 (09:36→22:17)
[2016-05-21] MEDS: CHOLECALCIFEROL (VITAMIN D3) 1,000 UNIT TABLET (FP) PO SCH (09:36)
[2016-05-21] MEDS: POLYETHYLENE GLYCOL 3350 119 GM BTL PO SCH ×2 (09:36→22:19)
[2016-05-21] MEDS: ASCORBIC ACID 500 MG TABLET (FP) PO SCH (09:36)
[2016-05-21] MEDS: RAMIPRIL 2.5 MG CAPSULE (FP) PO SCH (09:36)
[2016-05-21] MEDS: CYANOCOBALAMIN 1,000 MCG TABLET (FP) PO SCH (09:36)
[2016-05-21] MEDS ORDERED: ACETAMINOPHEN/CAFFEINE/BUTALBITAL 1 TAB PO PRN (10:13)
--- NOTE | 2016-05-21 11:05 | PN ---
Progress Note (short form) - Note Progress Note: Neurology Consult - History of Present Illness History of Present Illness: Mr Villalba is a 75 year old who slipped and fell in the shower and was previously seen by Dr. Aldana this past week. Since yesterday, has been having headaches and CT head compelted did not show acute changes. He is unsure if he had head trauma but describes tension type symptoms possibly related to the fall. Recommend Fioricet trial to help alleviate headache symptoms. Active Medications Acetaminophen (Tylenol -) 650 mg PO Q4H PRN PRN Reason: FEVER OR PAIN Last Admin: 05/19/16 06:13 Dose: 650 mg Acetaminophen/Butalbital/Caffeine (Fioricet -) 1 tablet PO Q4H PRN PRN Reason: FEVER OR PAIN Albuterol/Ipratropium (Duoneb -) 1 amp NEB Q6H PRN PRN Reason: SHORTNESS OF BREATH Ascorbic Acid (Vitamin C -) 1,000 mg PO DAILY [facility] Last Admin: 05/21/16 09:36 Dose: 1,000 mg Atorvastatin Calcium (Lipitor -) 10 mg PO HS [facility] Last Admin: 05/20/16 21:54 Dose: 10 mg Cholecalciferol (Vitamin D3 -) 1,000 unit PO DAILY [facility] Last Admin: 05/21/16 09:36 Dose: 1,000 unit Cyanocobalamin (Vitamin B12 -) 1,000 mcg PO DAILY [facility] Last Admin: 05/21/16 09:36 Dose: 1,000 mcg Docusate Sodium (Colace -) 100 mg PO BID [facility] Last Admin: 05/21/16 09:36 Dose: 100 mg Heparin Sodium (Porcine) (Heparin -) 5,000 unit SQ TID [facility] Last Admin: 05/21/16 06:42 Dose: 5,000 unit Ondansetron HCl (Zofran Injection) 4 mg IVPB Q6H PRN PRN Reason: NAUSEA Polyethylene Glycol (Miralax (For Daily Use) -) 17 gm PO DAILY [facility] Last Admin: 05/21/16 09:36 Dose: 17 gm Ramipril (Altace -) 2.5 mg PO DAILY [facility] Last Admin: 05/21/16 09:36 Dose: 2.5 mg Family Disease History - Family Disease History Family Disease History: Other: Father (, unknown causes), Mother ( , unknown causes) Physical Exam Vital Signs: Vital Signs Temperature 97.7 F 05/18/16 17:59 Pulse Rate 87 05/18/16 17:59 Respiratory Rate 20 05/18/16 17:59 Blood Pressure 125/77 05/18/16 17:59 O2 Sat by Pulse Oximetry (%) 91 L 05/18/16 10:00 Constitutional: Yes: Well Nourished, No Distress Eyes: Yes: EOM Intact HENT: Yes: Atraumatic Cardiovascular: Yes: Regular Rate and Rhythm Respiratory: Yes: Regular Gastrointestinal: Yes: Soft Neurological: Yes: Alert, Oriented, Babinski negative, Cran Nerves II-XII Intact (Motor 5/5 with normal tone, sensory intact to LT and vibration with decrease sensation to PP to ankles with absent ankle DTR, otherwise sensation and DTRs intact.). No: Aphasia, Ataxia, Confusion, Dysarthria, Facial Droop, Loss of Sensation, Numbness CBCD WBC 6.9 K/mm3 (4.0-10.0) 05/19/16 07:00 RBC 4.38 M/mm3 (4.00-5.60) 05/19/16 07:00 Hgb 14.1 GM/dL (11.7-16.9) 05/19/16 07:00 Hct 40.5 % (35.4-49) 05/19/16 07:00 MCV 92.5 fl (80-96) 05/19/16 07:00 MCHC 34.8 g/dl (32.0-35.9) 05/19/16 07:00 RDW 13.9 % (11.9-15.9) 05/19/16 07:00 Plt Count 202 K/MM3 (134-434) 05/19/16 07:00 MPV 7.2 fl (7.5-11.1) L 05/19/16 07:00 CMP Sodium 133 mmol/L (136-145) L 05/19/16 07:00 Potassium 4.0 mmol/L (3.5-5.1) 05/19/16 07:00 Chloride 106 mmol/L (98-107) 05/19/16 07:00 Carbon Dioxide 28 mmol/L (21-32) 05/19/16 07:00 Anion Gap -1 (8-16) L 05/19/16 07:00 BUN 17 mg/dL (7-18) D 05/19/16 07:00 Creatinine 0.8 mg/dL (0.7-1.3) 05/19/16 07:00 Creat Clearance w eGFR > 60 (>60) 05/16/16 05:16 Calcium 8.6 mg/dL (8.5-10.1) 05/19/16 07:00 Total Bilirubin 0.9 mg/dL (0.2-1.0) D 05/16/16 05:16 AST 21 U/L (15-37) D 05/16/16 05:16 ALT 28 U/L (12-78) D 05/16/16 05:16 Alkaline Phosphatase 62 U/L (45-117) D 05/16/16 05:16 Total Protein 6.6 g/dl (6.4-8.2) 05/16/16 05:16 Albumin 3.8 g/dl (3.4-5.0) D 05/16/16 05:16 Assessment/Plan 75 year old who slipped and fell in the shower and was previously seen by Dr. Aldana this past week. Since yesterday, has been having headaches and CT head compelted did not show acute changes. He is unsure if he had head trauma but describes tension type symptoms possibly related to the fall. Recommend Fioricet trial to help alleviate headache symptoms. Cognitive rest recommended May also be worsened by hospital setting, ideally home environment can provide comfort as well Will follow up with me in office as outpatient
--- NOTE | 2016-05-21 14:11 | PN ---
Progress Note, Physician Chief Complaint: Mr Villalba says he is feeling well and is without complaint. Says he is not walking and he needs assistance. No cp, sob, n/v. - Current Medication List Current Medications: Active Medications Acetaminophen (Tylenol -) 650 mg PO Q4H PRN PRN Reason: FEVER OR PAIN Last Admin: 05/19/16 06:13 Dose: 650 mg Acetaminophen/Butalbital/Caffeine (Fioricet -) 1 tablet PO Q4H PRN PRN Reason: FEVER OR PAIN Albuterol/Ipratropium (Duoneb -) 1 amp NEB Q6H PRN PRN Reason: SHORTNESS OF BREATH Ascorbic Acid (Vitamin C -) 1,000 mg PO DAILY [facility] Last Admin: 05/21/16 09:36 Dose: 1,000 mg Atorvastatin Calcium (Lipitor -) 10 mg PO HS [facility] Last Admin: 05/20/16 21:54 Dose: 10 mg Cholecalciferol (Vitamin D3 -) 1,000 unit PO DAILY [facility] Last Admin: 05/21/16 09:36 Dose: 1,000 unit Cyanocobalamin (Vitamin B12 -) 1,000 mcg PO DAILY [facility] Last Admin: 05/21/16 09:36 Dose: 1,000 mcg Docusate Sodium (Colace -) 100 mg PO BID [facility] Last Admin: 05/21/16 09:36 Dose: 100 mg Heparin Sodium (Porcine) (Heparin -) 5,000 unit SQ TID [facility] Last Admin: 05/21/16 06:42 Dose: 5,000 unit Magnesium Citrate (Citroma -) 300 ml PO ONCE ONE Stop: 05/21/16 14:04 Ondansetron HCl (Zofran Injection) 4 mg IVPB Q6H PRN PRN Reason: NAUSEA Polyethylene Glycol (Miralax (For Daily Use) -) 17 gm PO BID [facility] Ramipril (Altace -) 2.5 mg PO DAILY [facility] Last Admin: 05/21/16 09:36 Dose: 2.5 mg - Objective Vital Signs: Vital Signs Temperature 97.6 F 05/21/16 03:00 Pulse Rate 83 05/21/16 03:00 Respiratory Rate 12 05/21/16 03:00 Blood Pressure 110/69 05/21/16 03:00 O2 Sat by Pulse Oximetry (%) 95 05/20/16 21:00 Constitutional: Yes: No Distress, Calm, Obese Cardiovascular: Yes: Regular Rate and Rhythm. No: Gallop, Murmur, Rub Respiratory: Yes: Regular, CTA Bilaterally. No: Rales, Rhonchi, Wheezes Gastrointestinal: Yes: Normal Bowel Sounds, Soft. No: Distention, Tenderness Extremities: Yes: WNL Edema: No Labs: CBC, BMP 05/19/16 07:00 05/19/16 07:00 INR, PTT INR 1.16 (0.82-1.09) H 05/16/16 05:16 Problem List - Problems (1) Ruptured Bakers cyst Code(s): M66.0 - RUPTURE OF POPLITEAL CYST (2) Accidental fall Code(s): W19.XXXA - UNSPECIFIED FALL, INITIAL ENCOUNTER Qualifiers: Encounter type: initial encounter Qualified Code(s): W19.XXXA - Unspecified fall, initial encounter (3) Edema Code(s): R60.9 - EDEMA, UNSPECIFIED (4) HTN (hypertension) Code(s): I10 - ESSENTIAL (PRIMARY) HYPERTENSION (5) Diabetes Code(s): E11.9 - TYPE 2 DIABETES MELLITUS WITHOUT COMPLICATIONS Assessment/Plan (1) Ruptured Bakers Cyst -appreciate ortho assistance -conservative management -considering outpatient TKR -continue PT, may need SNF but patient currently declines (2) Accidental fall Assessment/Plan: -PT following Code(s): W19.XXXA - UNSPECIFIED FALL, INITIAL ENCOUNTER Qualifiers: Encounter type: initial encounter Qualified Code(s): W19.XXXA - Unspecified fall, initial encounter (3) Edema Assessment/Plan: -no fracture, ruptured bakers cyst -as above Code(s): R60.9 - EDEMA, UNSPECIFIED (4) HTN (hypertension) Assessment/Plan: -well controlled -continue ramipril Code(s): I10 - ESSENTIAL (PRIMARY) HYPERTENSION (5) Diabetes Assessment/Plan: -diet controlled Code(s): E11.9 - TYPE 2 DIABETES MELLITUS WITHOUT COMPLICATIONS (6) Diabetic neuropathy -appreciate neurology assistance
[2016-05-21] MEDS ORDERED: MAGNESIUM CITRATE 300 ML BOTTLE PO ONE (14:30)
[2016-05-21] MEDS ORDERED: SODIUM PHOSPHATE/NA BIPHOS 133 ML ENEMA PR ONE (18:41)
[2016-05-21] MEDS: ATORVASTATIN CA 10 MG TABLET (FP) PO SCH (22:19)
[2016-05-22] MEDS: HEPARIN NA (PORCINE) 5,000 UNITS/ML 1ML VIAL SQ SCH ×2 (06:12→14:03)
[2016-05-22] MEDS ORDERED: PT OWN MED DRAWER 7, Y5N ONE (09:14)
[2016-05-22] MEDS: RAMIPRIL 2.5 MG CAPSULE (FP) PO SCH (09:31)
[2016-05-22] MEDS: DOCUSATE SODIUM 100 MG CAPSULE (FP) PO SCH (09:32)
[2016-05-22] MEDS: ASCORBIC ACID 500 MG TABLET (FP) PO SCH (09:32)
[2016-05-22] MEDS: CYANOCOBALAMIN 1,000 MCG TABLET (FP) PO SCH (09:32)
[2016-05-22] MEDS: CHOLECALCIFEROL (VITAMIN D3) 1,000 UNIT TABLET (FP) PO SCH (09:33)
[2016-05-22] MEDS: POLYETHYLENE GLYCOL 3350 119 GM BTL PO SCH (09:38)
--- NOTE | 2016-05-22 10:55 | PN ---
Progress Note (short form) - Note Progress Note: Neurology - History of Present Illness History of Present Illness: Mr Villalba is a 75 year old who slipped and fell in the shower and was previously seen by Dr. Aldana this past week. Since yesterday, has been having headaches and CT head completed did not show acute changes. Fioricet trial has helped with headache symptoms. Having recurrence this AM but admits to symptoms being better with medication. Active Medications Acetaminophen (Tylenol -) 650 mg PO Q4H PRN PRN Reason: FEVER OR PAIN Last Admin: 05/19/16 06:13 Dose: 650 mg Acetaminophen/Butalbital/Caffeine (Fioricet -) 1 tablet PO Q4H PRN PRN Reason: FEVER OR PAIN Albuterol/Ipratropium (Duoneb -) 1 amp NEB Q6H PRN PRN Reason: SHORTNESS OF BREATH Ascorbic Acid (Vitamin C -) 1,000 mg PO DAILY [facility] Last Admin: 05/22/16 09:32 Dose: 1,000 mg Atorvastatin Calcium (Lipitor -) 10 mg PO HS [facility] Last Admin: 05/21/16 22:19 Dose: 10 mg Cholecalciferol (Vitamin D3 -) 1,000 unit PO DAILY [facility] Last Admin: 05/22/16 09:33 Dose: 1,000 unit Cyanocobalamin (Vitamin B12 -) 1,000 mcg PO DAILY [facility] Last Admin: 05/22/16 09:32 Dose: 1,000 mcg Docusate Sodium (Colace -) 100 mg PO BID [facility] Last Admin: 05/22/16 09:32 Dose: 100 mg Heparin Sodium (Porcine) (Heparin -) 5,000 unit SQ TID [facility] Last Admin: 05/22/16 06:12 Dose: 5,000 unit Ondansetron HCl (Zofran Injection) 4 mg IVPB Q6H PRN PRN Reason: NAUSEA Polyethylene Glycol (Miralax (For Daily Use) -) 17 gm PO BID [facility] Last Admin: 05/22/16 09:38 Dose: 17 grams Ramipril (Altace -) 2.5 mg PO DAILY [facility] Last Admin: 05/22/16 09:31 Dose: 2.5 mg Physical Exam Vital Signs: Vital Signs Temperature 97.7 F 05/18/16 17:59 Pulse Rate 87 05/18/16 17:59 Respiratory Rate 20 05/18/16 17:59 Blood Pressure 125/77 05/18/16 17:59 O2 Sat by Pulse Oximetry (%) 91 L 05/18/16 10:00 Constitutional: Yes: Well Nourished, No Distress Eyes: Yes: EOM Intact HENT: Yes: Atraumatic Cardiovascular: Yes: Regular Rate and Rhythm Respiratory: Yes: Regular Gastrointestinal: Yes: Soft Neurological: Yes: Alert, Oriented, Babinski negative, Cran Nerves II-XII Intact (Motor 5/5 with normal tone, sensory intact to LT and vibration with decrease sensation to PP to ankles with absent ankle DTR, otherwise sensation and DTRs intact.). No: Aphasia, Ataxia, Confusion, Dysarthria, Facial Droop, Loss of Sensation, Numbness CBCD WBC 6.9 K/mm3 (4.0-10.0) 05/19/16 07:00 RBC 4.38 M/mm3 (4.00-5.60) 05/19/16 07:00 Hgb 14.1 GM/dL (11.7-16.9) 05/19/16 07:00 Hct 40.5 % (35.4-49) 05/19/16 07:00 MCV 92.5 fl (80-96) 05/19/16 07:00 MCHC 34.8 g/dl (32.0-35.9) 05/19/16 07:00 RDW 13.9 % (11.9-15.9) 05/19/16 07:00 Plt Count 202 K/MM3 (134-434) 05/19/16 07:00 MPV 7.2 fl (7.5-11.1) L 05/19/16 07:00 CMP Sodium 133 mmol/L (136-145) L 05/19/16 07:00 Potassium 4.0 mmol/L (3.5-5.1) 05/19/16 07:00 Chloride 106 mmol/L (98-107) 05/19/16 07:00 Carbon Dioxide 28 mmol/L (21-32) 05/19/16 07:00 Anion Gap -1 (8-16) L 05/19/16 07:00 BUN 17 mg/dL (7-18) D 05/19/16 07:00 Creatinine 0.8 mg/dL (0.7-1.3) 05/19/16 07:00 Creat Clearance w eGFR > 60 (>60) 05/16/16 05:16 Calcium 8.6 mg/dL (8.5-10.1) 05/19/16 07:00 Total Bilirubin 0.9 mg/dL (0.2-1.0) D 05/16/16 05:16 AST 21 U/L (15-37) D 05/16/16 05:16 ALT 28 U/L (12-78) D 05/16/16 05:16 Alkaline Phosphatase 62 U/L (45-117) D 05/16/16 05:16 Total Protein 6.6 g/dl (6.4-8.2) 05/16/16 05:16 Albumin 3.8 g/dl (3.4-5.0) D 05/16/16 05:16 Assessment/Plan 75 year old who slipped and fell in the shower and was previously seen by Dr. Aldana this past week. Since yesterday, has been having headaches and CT head completed did not show acute changes. He is unsure if he had head trauma but describes tension type symptoms possibly related to the fall. Fioricet trial has helped with headache symptoms. Having recurrence this AM but admits to symptoms being better with medication. Continue Fioricet PRN Cognitive rest recommended May also be worsened by hospital setting, ideally home environment can provide comfort as well Will follow up with me in office as outpatient
--- NOTE | 2016-05-22 13:17 | DS ---
Physical Examination Vital Signs: Vital Signs Temperature 98.7 F 05/22/16 06:00 Pulse Rate 81 05/22/16 06:00 Respiratory Rate 20 05/22/16 09:00 Blood Pressure 120/61 05/22/16 06:00 O2 Sat by Pulse Oximetry (%) 92 L 05/22/16 09:00 Labs: CBC, BMP 05/19/16 07:00 05/19/16 07:00 Discharge Summary Reason For Visit: ACCIDENTAL FALL,UNABLE TO AMBULATE Current Active Problems Accidental fall (Acute) Diabetes (Acute) Edema (Acute) HTN (hypertension) (Acute) Ruptured Bakers cyst (Acute) Unable to ambulate (Acute) Condition: Stable - Instructions Diet, Activity, Other Instructions: regular diet. up with assistance, further activity per PT at SNF. Referrals: Omar Lovett MD [Primary Care Provider] - Brayden Pizarro MD [Staff Physician] - Disposition: SNF FACILITY - Home Medications Comprehensive Discharge Medication List: Ambulatory Orders Cholecalciferol (Vitamin D3) [Vitamin D] 1,000 unit PO DAILY 04/14/12 Cyanocobalamin [Vitamin B12 -] 1,000 mcg PO DAILY 04/14/12 Pravastatin Sodium [Pravachol -] 20 mg PO HS #0 tablet 04/23/12 Ascorbate Calcium [Vitamin C] 1,000 mg PO DAILY 02/21/15 Docosahexanoic Acid/Epa [Fish Oil Softgel] 1,200 mg PO DAILY 02/21/15 Multivit-Min/FA/Lycopen/Lutein [Centrum Silver Tablet] 1 each PO DAILY 02/21/15 Ramipril 2.5 mg PO DAILY 02/21/15 Aspirin [ASA -] 81 mg PO DAILY #0 tab.chew 02/22/15 Alendronate Sodium [Fosamax] 70 mg PO WEEKLY 05/16/16 Multivit-Min/FA/Lycopen/Lutein [Centrum Silver Tablet] 1 each PO DAILY 05/16/16 Acetaminophen [Tylenol .Regular Strength -] 650 mg PO Q4H PRN #0 tablet Acetaminophen/Caffeine/Butalb [Fioricet -] 1 tablet PO Q4H PRN #0 tablet MDD 6 tablets 05/22/16 Docusate Sodium [Colace -] 100 mg PO BID capsule 05/22/16 Polyethylene Glycol 3350 [Miralax 119 gm Btl -] 17 gm PO BID bottle 05/22/16
--- NOTE | 2016-05-22 14:40 | PN ---
Progress Note (short form) - Note Progress Note: Ortho Pt seen and examined feeling better less swelling, decr pain, incr rom nvi a/p PT dvt ppx pin control d/c planning d/w Dr. Juan
[2016-05-22 15:06] VITALS: BP 121/69; PULSE 78; TEMP 98.6
== END 2016-05-22 15:51 | DRG 558 ==
LOC: JER 04:46 → JERBED 09:36 → J5S 11:24
PROVIDERS: ADMIT Internal Medicine; ATTEND Internal Medicine
PROC: 0S9C3ZX Drainage of Right Knee Joint, Percutaneous Approach, Diagnostic (ICD-10-PCS; principal; 2016-05-18)
DX: M66.0 Rupture of popliteal cyst (principal); M25.461 Effusion, right knee; E78.5 Hyperlipidemia, unspecified; E66.9 Obesity, unspecified; I10 Essential (primary) hypertension; E11.42 Type 2 diabetes mellitus with diabetic polyneuropathy; Z68.34 Body mass index [BMI] 34.0-34.9, adult; R51 Headache
CPT/HCPCS: 36415; 70450-TC; 71010-TC; 72125-TC; 72131-TC; 72170-TC; 73560-TC-LT; 73560-TC-RT; 73721-RT-TC; 80048; 80053; 80307; 81003; 82009; 82550; 82553; 82607; 82746; 83036; 83690; 83735; 84100; 84484; 85025; 85610; 86850; 86900; 86901; 93005; 93010; 93970-TC; 94010; 97116-GP; 97163-GP; 99283-25; J1644

== ENCOUNTER 2016-08-04 12:24 | Emergency (ER) | payer OTHER, MEDICARE ==
[2016-08-04 12:37] VITALS: BMI 32.8
--- NOTE | 2016-08-04 12:43 | PDOC ---
History of Present Illness - General History Source: Patient - History of Present Illness Occurred: reports: just prior to arrival Method of Injury: Yes: fall <Ruthann Stephenson - Last Filed: 08/04/16 14:56> <Danyell Capps - Last Filed: 08/05/16 13:29> - General Chief Complaint: Injury Stated Complaint: FALL Time Seen by Provider: 08/04/16 12:26 Past History - Past Medical History Anemia: No Asthma: No Cancer: Yes (PROSTATE) Cardiac Disorders: No CVA: No COPD: No CHF: No Dementia: No Diabetes: Yes (Borderline) GI Disorders: Yes (COLON POLYPS) Disorders: No HTN: Yes Hypercholesterolemia: Yes Liver Disease: No Seizures: No Thyroid Disease: No - Surgical History Abdominal Surgery: No Appendectomy: No Cardiac Surgery: No Cholecystectomy: No Lung Surgery: No Neurologic Surgery: No Orthopedic Surgery: Yes (Bilaterl wrist, HIP FRACTURE 2011) - Immunization History Immunization Up to Date: Yes - Psycho/Social/Smoking Cessation Hx Suicidal Ideation: No Smoking Status: No Smoking History: Unknown if ever smoked Have you smoked in the past 12 months: No Number of Cigarettes Smoked Daily: 0 If you are a former smoker, when did you quit?: 1984 Information on smoking cessation initiated: No Hx Alcohol Use: No Drug/Substance Use Hx: No Substance Use Type: None Hx Substance Use Treatment: No <Ruthann Stephenson - Last Filed: 08/04/16 14:56> <Danyell Capps - Last Filed: 08/05/16 13:29> - Past Medical History Allergies/Adverse Reactions: Allergies Allergy/AdvReac Type Severity Reaction Status Date / Time No Known Allergies Allergy Verified 04/14/12 09:57 Home Medications: Ambulatory Orders Alendronate Sodium/Vitamin D3 [Fosamax Plus D 70 mg-5,600 Iu] 1 each PO ASDIR Pravastatin Sodium 20 mg PO DAILY 08/04/16 Ramipril 5 mg PO ASDIR 08/04/16 Review of Systems - Review of Systems Constitutional: No: Chills, Fever Respiratory: No: Cough, Shortness of Breath Cardiac (ROS): No: Chest Pain, Lightheadedness, Palpitations, Syncope ABD/GI: No: Constipated, Diarrhea, Nausea, Vomiting : No: Dysuria Musculoskeletal: No: Back Pain, Joint Pain Neurological: No: Headache, Dizziness <Ruthann Stephenson - Last Filed: 08/04/16 14:56> *Physical Exam - Vital Signs Last Vital Signs Temp Pulse Resp BP Pulse Ox 99.0 F 107 H 20 105/74 94 L 08/04/16 12:30 08/04/16 12:30 08/04/16 12:30 08/04/16 12:30 08/04/16 12:30 - Physical Exam General Appearance: Yes: Appropriately Dressed. No: Apparent Distress HEENT: positive: Normal Voice Neck: positive: Supple Respiratory/Chest: positive: Lungs Clear, Normal Breath Sounds. negative: Respiratory Distress Cardiovascular: positive: Regular Rate, S1, S2 Gastrointestinal/Abdominal: positive: Soft. negative: Tender Musculoskeletal: negative: Vertebral Tenderness Extremity: positive: Normal Inspection Integumentary: positive: Dry, Warm Neurologic: positive: Fully Oriented, Alert, Normal Mood/Affect <Ruthann Stephenson - Last Filed: 08/04/16 14:56> - Vital Signs Last Vital Signs Temp Pulse Resp BP Pulse Ox 98.3 F 100 H 20 135/80 98 08/04/16 15:06 08/04/16 15:06 08/04/16 12:30 08/04/16 15:06 08/04/16 15:06 <Danyell Capps - Last Filed: 08/05/16 13:29> ED Treatment Course - LABORATORY CBC & Chemistry Diagram: 08/04/16 12:40 08/04/16 12:40 - RADIOLOGY Radiology Studies Ordered: Category Date Time Status CHEST X-RAY PORTABLE* [RAD] Stat Radiology 08/04/16 12:34 Ordered <Ruthann Stephenson - Last Filed: 08/04/16 14:56> - LABORATORY CBC & Chemistry Diagram: 08/04/16 12:40 08/04/16 12:40 - ADDITIONAL ORDERS Additional order review: 08/04/16 12:40 RBC 4.31 MCV 91.7 MCHC 34.4 RDW 14.6 MPV 6.9 L Neutrophils % 72.4 Lymphocytes % 17.0 Monocytes % 8.0 Eosinophils % 1.8 Basophils % 0.8 <Danyell Capps - Last Filed: 08/05/16 13:29> Medical Decision Making - Medical Decision Making 08/04/16 12:35 76 yo M, h/o HLD, diet controlled DM, peripheral neuropathy, BIB EMS s/p witnessed fall. Patient states while attempting to get into shower this afternoon, he slipped and fell on towel that was lying on floor. Pt states grab him and help to break fall and that he instead "slid to the floor". Denies any head injury and reports no pain at this time. Has been ambulatory with cane status post fall. No dizziness or CP prior to fall. at bedside and wanted patient to come to ED to be evaluated. Of note, patient has history of frequent falls and was admitted approximately 2 weeks ago for same and discharged to [facility]. Upon discharge from rehab, patient had home PT and weekly [employer] service but service ended 1 week ago. feels that pt continues to need home services as pt is unable to adequately care for pt, however insurance will not cover additional service and family will have to pay out of pocket. Per EMS, pt was hypotensive and tachy enroute. Pt states he feels well and denies any sxs at this time. now reports that pt has had had decreased po intake for unknown duration of time. See exam S/p witnessed mechanical fall Spouse broke fall, soft landing, no head injury Not on blood thinners Asx and ambulatory at this time Tachy to 106, otherwise unremarkable exam -will check ekg/labs -dispo pending 08/04/16 12:44 08/04/16 13:02 08/04/16 13:12 08/04/16 13:30 08/04/16 13:34 Labs/cxr unremarkable. Tachycardia resolved w/ fluids. Pt remains asx. Will contact SW to evaluate pt 08/04/16 14:57 Pt evaluated by SW, states pt's income exceeds additional home services unless pt pays out of pocket which states they might do. States she will discuss w / pt's PMD <Ruthann Stephenson - Last Filed: 08/04/16 14:56> *DC/Admit/Observation/Transfer <Ruthann Stephenson - Last Filed: 08/04/16 14:56> - Attestations Physician Attestion: I reviewed the case with the mid-level practitioner and agree with the mid- level practitioner's assessment, diagnosis and disposition. <Danyell Capps - Last Filed: 08/05/16 13:29> Diagnosis at time of Disposition: Dehydration Fall Qualifiers: Encounter type: initial encounter Qualified Code(s): W19.XXXA - Unspecified fall, initial encounter - Discharge Dispostion Disposition: HOME Condition at time of disposition: Improved - Referrals Referrals: Omar Lovett MD [Primary Care Provider] - - Patient Instructions Additional Instructions: Please follow up with your PMD. Return to ED for worsening of symptoms
[2016-08-04 12:53] LABS: BASOPHIL 0.8 % (0-2.0); EOSINOPHIL 1.8 % (0-4.5); MCH 31.6 pg (25.7-33.7); MCHC 34.4 g/dl (32.0-35.9); MEAN CELL VOLUME 91.7 fl (80-96); MEAN PLT VOLUME 6.9 fl (7.5-11.1); NEUTROPHILS 72.4 % (42.8-82.8); PLATELET COUNT 215 K/MM3 (134-434); RDW 14.6 % (11.9-15.9); WHITE BLOOD COUNT 8.4 K/mm3 (4.0-10.0)
[2016-08-04 13:17] LABS: ALBUMIN 3.6 g/dl (3.4-5.0); ANION GAP 10 (8-16); BILIRUBIN,TOTAL 0.7 mg/dL (0.2-1.0); CALCIUM 8.6 mg/dL (8.5-10.1); CO2 27 mmol/L (21-32); CREATININE 0.9 mg/dL (0.7-1.3); GLUCOSE,RANDOM 134 mg/dL (74-106); SGOT/AST 12 U/L (15-37); SGPT/ALT 19 U/L (12-78); TOT PROT 6.4 g/dl (6.4-8.2)
[2016-08-04 13:20] LABS: ALK PHOS 79 U/L (45-117); TROPONIN I < 0.02 ng/ml (0.00-0.05)
[2016-08-04 14:01] LABS: URINE APPEARANCE CLEAR; URINE BILIRUBIN NEGATIVE (NEGATIVE); URINE BLOOD NEGATIVE (NEGATIVE); URINE COLOR LTYELLOW; URINE GLUCOSE (UA) NEGATIVE (NEGATIVE); URINE KETONE NEGATIVE (NEGATIVE); URINE LEUK ESTERASE NEGATIVE (NEGATIVE); URINE NITRITE NEGATIVE (NEGATIVE); URINE PROTEIN NEGATIVE (NEGATIVE); URINE UROBILINOGEN NEGATIVE E.U./dl (0.2-1.0)
[2016-08-04 15:06] VITALS: BP 135/80; PULSE 100; TEMP 98.3
--- NOTE | 2016-08-04 18:21 | EKG ---
Test Reason : Blood Pressure : / mmHG Vent. Rate : 107 BPM Atrial Rate : 107 BPM P-R Int : 232 ms QRS Dur : 082 ms QT Int : 320 ms P-R-T Axes : 054 128 151 degrees QTc Int : 427 ms POOR DATA QUALITY, INTERPRETATION MAY BE ADVERSELY AFFECTED SINUS TACHYCARDIA WITH 1ST DEGREE A-V BLOCK RIGHT AXIS DEVIATION ABNORMAL ECG WHEN COMPARED WITH ECG OF 16-MAY-2016 05:16, QRS DURATION HAS DECREASED Confirmed by CLAIRE LUTHER MD ([id number]) on 08/04/2016 6:21:01 PM Referred By: Confirmed By:CLAIRE LUTHER MD
== END 2016-08-04 16:06 | disposition home or self-care (01) ==
LOC: JER 12:24
DX: E86.0 Dehydration (principal); I10 Essential (primary) hypertension; E11.9 Type 2 diabetes mellitus without complications; E78.00 Pure hypercholesterolemia, unspecified; Z85.46 Personal history of malignant neoplasm of prostate; W18.2XXA Fall in (into) shower or empty bathtub, initial encounter; Z91.81 History of falling; Y93.E1 Activity, personal bathing and showering; Y92.012 Bathroom of single-family (private) house as the place of occurrence of the external cause
CPT/HCPCS: 36415; 71010-TC; 80053; 81003; 82550; 84484; 85025; 93005; 93010; 99285-25

== ENCOUNTER 2016-08-23 12:20 | Inpatient (IN) | payer OTHER, MEDICARE ==
[2016-08-23 12:30] VITALS: BMI 33.4
--- NOTE | 2016-08-23 12:32 | PDOC ---
History of Present Illness - History of Present Illness Initial Comments: 08/23/16 12:52 Patient is a 76 year old male with significant medical hx of HLD, diet controlled prediabetes, obesity, peripheral neuropathy, HLD, HTN, prostate CA who is presenting to the ED with hematuria since this morning. The patient notes that he's had traces of blood in his urine for the past three days but noticed it more significantly today. He denies any associated symptoms, including fever, chills, abdominal pain, nausea, vomiting, diarrhea, blood in stool, dysuria, suprapubic pain, and back pain. The patient also denies hx of taking blood thinners or starting new medications. GI: Colton Schwartz MD PMD: Omar Lovett MD <Kayla Cueva - Last Filed: 08/23/16 12:52> - General History Source: Patient Exam Limitations: No Limitations <Citlali Demarco - Last Filed: 08/23/16 18:14> - General Chief Complaint: Hematuria Stated Complaint: BLOOD IN URINE Time Seen by Provider: 08/23/16 12:25 Past History <Kayla Cueva - Last Filed: 08/23/16 12:52> - Past Medical History Anemia: No Asthma: No Cancer: Yes (PROSTATE) Cardiac Disorders: No CVA: No COPD: No CHF: No Dementia: No Diabetes: Yes (Borderline) GI Disorders: Yes (COLON POLYPS) Disorders: No HTN: Yes Hypercholesterolemia: Yes Liver Disease: No Seizures: No Thyroid Disease: No - Surgical History Abdominal Surgery: No Appendectomy: No Cardiac Surgery: No Cholecystectomy: No Lung Surgery: No Neurologic Surgery: No Orthopedic Surgery: Yes (Bilaterl wrist, HIP FRACTURE 2011) - Immunization History Immunization Up to Date: Yes - Psycho/Social/Smoking Cessation Hx Suicidal Ideation: No Smoking Status: No Smoking History: Unknown if ever smoked Have you smoked in the past 12 months: No Number of Cigarettes Smoked Daily: 0 If you are a former smoker, when did you quit?: 1984 Information on smoking cessation initiated: No Hx Alcohol Use: No Drug/Substance Use Hx: No Substance Use Type: None Hx Substance Use Treatment: No <Citlali Demarco - Last Filed: 08/23/16 18:14> - Past Medical History Allergies/Adverse Reactions: Allergies Allergy/AdvReac Type Severity Reaction Status Date / Time No Known Allergies Allergy Verified 12/03/12 09:57 Home Medications: Ambulatory Orders Alendronate Sodium/Vitamin D3 [Fosamax Plus D 70 mg-5,600 Iu] 1 each PO ASDIR Pravastatin Sodium 20 mg PO DAILY 08/04/16 Ramipril 5 mg PO ASDIR 08/04/16 Review of Systems - Review of Systems Comments:: 08/23/16 12:56 GENERAL/CONSTITUTIONAL: No: fever, chills, weakness, loss of appetite. HEAD, EYES, EARS, NOSE AND THROAT: No: change in vision, ear pain, discharge, sore throat, throat swelling. CARDIOVASCULAR: No: chest pain, lightheadedness, palpitations, syncope RESPIRATORY: No: cough, shortness of breath, wheezing, hemoptysis, stridor. GASTROINTESTINAL: No: nausea, vomiting, abdominal cramping, diarrhea, rectal bleeding, constipation. GENITOURINARY: Yes: Hematuria. No: dysuria, frequency, urgency, flank pain. MUSCULOSKELET AL: No: back pain, neck pain, joint pain, muscle swelling or pain SKIN AND BREASTS: No: lesions, pallor, rash or easy bruising. NEUROLOGIC: No: headache, vertigo, paresthesias, weakness ENDOCRINE: No: unexplained weight gain or loss HEMATOLOGIC/LYMPHATIC: No: anemia, easy bleeding, swelling nodes <Hasmukh Cuevaantha - Last Filed: 08/23/16 12:52> *Physical Exam - Vital Signs Last Vital Signs Temp Pulse Resp BP Pulse Ox 98.7 F 87 18 116/83 96 08/23/16 12:28 08/23/16 12:28 08/23/16 12:28 08/23/16 12:28 08/23/16 12:28 - Physical Exam Comments: 08/23/16 12:57 GENERAL: The patient is in no acute distress. HEAD: Normal with no signs of trauma. EYES: PERRLA, EOMI, sclera anicteric, conjunctiva clear. ENT: Ears normal, nares patent, oropharynx clear without exudates. Moist mucous membranes. NECK: Normal range of motion, supple without lymphadenopathy, JVD, or masses. LUNGS: Breath sounds equal, clear to auscultation bilaterally. No wheezes, and no crackles. HEART:Regular rate and rhythm, normal S1 and S2 without murmur, rub or gallop. ABDOMEN: Soft, nontender, normoactive bowel sounds. No guarding, no rebound. EXTREMITIES: Normal range of motion, no edema. No clubbing or cyanosis. No erythema, or tenderness. NEUROLOGICAL: Cranial nerves II through XII grossly intact. Normal speech. No focal neurological deficits. MUSCULOSKELETAL: Back non-tender to palpation, no CVA tenderness SKIN: Warm, Dry, normal turgor, no rashes or lesions noted. <Kayla Cueva - Last Filed: 08/23/16 12:52> - Vital Signs Last Vital Signs Temp Pulse Resp BP Pulse Ox 98.7 F 87 18 116/83 96 08/23/16 12:28 08/23/16 12:28 08/23/16 12:28 08/23/16 12:28 08/23/16 12:28 <Citlali Demarco - Last Filed: 08/23/16 18:14> Heart Score/ECG Review #1 ECG reviewed & interpreted by me at: 18:13 08/23/16 18:13 ?Junctional rhythm Rate of 81 bpm QRS:90ms, QTc:476ms No ST elevations or depressions Non specific t wave flattening <Citlali Demarco - Last Filed: 08/23/16 18:14> ED Treatment Course - LABORATORY CBC & Chemistry Diagram: 08/23/16 12:51 08/23/16 12:51 <Citlali Demarco - Last Filed: 08/23/16 18:14> Medical Decision Making - Medical Decision Making 08/23/16 12:32 A portion of this note was documented by scribe services under my direction. I have reviewed the details of the note, within reason, and agree with the documentation with the following case summary and management plan written by me. Nursing documentation reviewed and incorporated into medical decision making 08/23/16 15:49 This pt is a 76 yo M h/o HLD, prediabetes, obesity, HLD, HTN, prostate CA presenting to the ER with a complaint of gross hematuria No abdominal pain No flank pain No fevers or chills This has been happening over the past 3 days and has been worsening No blood noted in the stool, no blood vomit Will do labs Will do UA/Urine culture Will re assess 08/23/16 15:51 Laboratory Tests 08/23/16 08/23/16 08/23/16 12:51 12:51 12:51 WBC 5.7 D Hgb 14.0 Hct 41.1 Plt Count 242 INR 1.11 Sodium 142 Potassium 4.3 Chloride 104 Carbon Dioxide 33 H D Anion Gap 5 L BUN 16 D Creatinine 0.9 Random Glucose 127 H 08/23/16 17:[address] Sevilla Will place on observation <Citlali Demarco - Last Filed: 08/23/16 18:14> *DC/Admit/Observation/Transfer - Attestations Scribe Attestion: 08/23/16 12:57 Documentation prepared by Kayla Cueva, acting as medical accountant for Citlali Demarco MD. <Kayla Cueva - Last Filed: 08/23/16 12:52> - Discharge Dispostion Admit: Yes <Citlali Demarco - Last Filed: 08/23/16 18:14> Diagnosis at time of Disposition: Hematuria - Discharge Dispostion Condition at time of disposition: Stable - Referrals Referrals: Omar Lovett MD [Primary Care Provider] -
[2016-08-23 13:37] LABS: EOSINOPHIL 2.9 % (0-4.5); MCH 31.6 pg (25.7-33.7); MCHC 34.1 g/dl (32.0-35.9); MEAN CELL VOLUME 92.7 fl (80-96); MEAN PLT VOLUME 6.6 fl (7.5-11.1); NEUTROPHILS 71.4 % (42.8-82.8); PLATELET COUNT 242 K/MM3 (134-434); RDW 14.7 % (11.9-15.9); WHITE BLOOD COUNT 5.7 K/mm3 (4.0-10.0)
[2016-08-23 13:50] LABS: INR 1.11 (0.82-1.09); PROTHROMBIN TIME (PATIENT) 12.2 SEC (9.98-11.88)
[2016-08-23 14:02] LABS: ALBUMIN 3.7 g/dl (3.4-5.0); ANION GAP 5 (8-16); BILIRUBIN,TOTAL 0.4 mg/dL (0.2-1.0); CALCIUM 9.1 mg/dL (8.5-10.1); CO2 33 mmol/L (21-32); CREATININE 0.9 mg/dL (0.7-1.3); GLUCOSE,RANDOM 127 mg/dL (74-106); SGOT/AST 13 U/L (15-37); SGPT/ALT 20 U/L (12-78)
[2016-08-23 14:03] LABS: ALK PHOS 89 U/L (45-117)
[2016-08-23] MEDS ORDERED: CEFTRIAXONE 1 GM in DEXTROSE 5%-WATER - 50 ML IVPB ONE (16:19)
[2016-08-23] MEDS ORDERED: CEFTRIAXONE 50 ML ONE (16:30)
[2016-08-23 16:31] LABS: URINE APPEARANCE CLEAR; URINE BILIRUBIN NEGATIVE (NEGATIVE); URINE COLOR DK. RED; URINE GLUCOSE (UA) NEGATIVE (NEGATIVE); URINE KETONE NEGATIVE (NEGATIVE); URINE UROBILINOGEN 1.0 E.U/dl E.U./dl (0.2-1.0)
[2016-08-23 16:34] LABS: URINE BLOOD 3+ (NEGATIVE); URINE LEUK ESTERASE 2+ (NEGATIVE); URINE NITRITE POSITIVE (NEGATIVE); URINE PROTEIN 3+ (NEGATIVE)
[2016-08-23] MEDS ORDERED: ONDANSETRON 4 MG/2 ML VIAL IVPB PRN (16:48)
--- NOTE | 2016-08-23 16:58 | HP ---
Admitting History and Physical - Primary Care Physician PCP: Omar Lovett - Admission Chief Complaint: I'm bleeding History of Present Illness: Mr Villalba is a pleasant 76 year old male who comes in with one day history of blood in his urine. He says he is doing well except he noted bright red blood this morning. He has not had trouble urinating (however his who is at the bedside disagrees and said he ) and he denies clots. He does not have pain associated with this. He denies fevers, chills, lightheadedness, dizziness, chest pain, shortness of breath, abdominal pain, nausea, vomiting, diarrhea, constipation, pain on urination, passing clots, or swelling. He is still having bright red blood with urination but feels it is improving. History Source: Patient Limitations to Obtaining History: No Limitations - Past Medical History Cardiovascular: Yes: HTN Renal/: Yes: Other (prostate cancer) Musculoskeletal: Yes: Other (neuropathy) Endocrine: Yes: Diabetes Mellitus (diet controlled) - Past Surgical History Past Surgical History: Yes: Joint Replacement (R hip) - Smoking History Smoking history: Never smoked Have you smoked in the past 12 months: No Aproximately how many cigarettes per day: 0 If you are a former smoker, when did you quit?: 1984 - Alcohol/Substance Use Hx Alcohol Use: No History of Substance Use: reports: None - Social History Usual Living Arrangement: Yes: With Spouse ADL: Family Assistance History of Recent Travel: No Home Medications - Allergies Allergies/Adverse Reactions: Allergies Allergy/AdvReac Type Severity Reaction Status Date / Time No Known Allergies Allergy Verified 04/14/12 09:57 - Home Medications Home Medications: Ambulatory Orders Alendronate Sodium/Vitamin D3 [Fosamax Plus D 70 mg-5,600 Iu] 1 each PO ASDIR Pravastatin Sodium 20 mg PO DAILY 08/04/16 Ramipril 5 mg PO ASDIR 08/04/16 Family Disease History - Family Disease History Family Disease History: Other: Father (, unknown causes), Mother ( , unknown causes) Review of Systems Findings/Remarks: Full review of systems obtained, as per HPI and otherwise negative Physical Examination Vital Signs: Vital Signs Temperature 98.7 F 08/23/16 12:28 Pulse Rate 81 08/23/16 15:56 Respiratory Rate 16 08/23/16 15:56 Blood Pressure 123/79 08/23/16 15:56 O2 Sat by Pulse Oximetry (%) 96 08/23/16 15:56 Constitutional: Yes: No Distress, Calm, Obese Eyes: Yes: Conjunctiva Clear, EOM Intact HENT: Yes: Atraumatic, Normocephalic Cardiovascular: Yes: Regular Rate and Rhythm. No: Gallop, Murmur, Rub Respiratory: Yes: Regular, CTA Bilaterally. No: Rales, Rhonchi, Wheezes Gastrointestinal: Yes: Normal Bowel Sounds, Soft. No: Distention, Tenderness Extremities: Yes: WNL Edema: No Labs: CBC, BMP 08/23/16 12:51 08/23/16 12:51 Imaging - Results Ultrasound: Pending Problem List - Problems (1) Hematuria Assessment/Plan: -patient presents with acute hematuria -labs currently normal -ER physician spoke with urology, no CBI recommended -will admit under observation -will hydrate with IVF to encourage voiding -urology consulted for further recommendation -will check ultrasound for possible stone -recheck H/H in am, expect some dilutional effect since on IVF Code(s): R31.9 - HEMATURIA, UNSPECIFIED (2) UTI (urinary tract infection) Assessment/Plan: -patient noted to have UTI -most likely cause of hematuria (cystitis) -given rocephin in the ED -will continue -lactobacillus for PPx -if stable can discharge on oral cephalosporin Code(s): N39.0 - URINARY TRACT INFECTION, SITE NOT SPECIFIED (3) HTN (hypertension) Assessment/Plan: -controlled -continue ramipril Code(s): I10 - ESSENTIAL (PRIMARY) HYPERTENSION
[2016-08-23] MEDS ORDERED: SODIUM CHLORIDE 1,000 ML IV SCH (17:00)
[2016-08-23 19:46] LABS: URINE RBC > 100 /hpf (0-3)
[2016-08-24] MEDS: ATORVASTATIN CA 10 MG TABLET (FP) PO SCH ×2 (01:49→21:28)
[2016-08-24] MEDS: ACETAMINOPHEN 325 MG TABLET (FP) PO PRN ×4 (01:50→21:28)
[2016-08-24 09:11] LABS: MCHC 34.7 g/dl (32.0-35.9); MEAN CELL VOLUME 92.1 fl (80-96); MEAN PLT VOLUME 6.9 fl (7.5-11.1); PLATELET COUNT 225 K/MM3 (134-434); RDW 14.5 % (11.9-15.9); WHITE BLOOD COUNT 6.1 K/mm3 (4.0-10.0)
--- NOTE | 2016-08-24 09:26 | EKG ---
Test Reason : Blood Pressure : / mmHG Vent. Rate : 081 BPM Atrial Rate : 082 BPM P-R Int : 000 ms QRS Dur : 090 ms QT Int : 410 ms P-R-T Axes : 000 041 035 degrees QTc Int : 476 ms POOR DATA QUALITY, INTERPRETATION MAY BE ADVERSELY AFFECTED NORMAL SINUS RHYTM WITH 1st DEGREE AV BLOCK NONSPECIFIC ST ABNORMALITY Confirmed by SANDRA HANNA MD ([id number]) on 08/24/2016 9:26:13 AM Referred By: Confirmed By:SANDRA HANNA MD
[2016-08-24 09:35] LABS: CALCIUM 8.3 mg/dL (8.5-10.1); COCKROFT - GAULT 124.7; CREATININE 0.7 mg/dL (0.7-1.3); MAGNESIUM 2.2 mg/dL (1.8-2.4); PHOSPHOROUS 2.9 mg/dL (2.5-4.9)
[2016-08-24] MEDS: LACTOBACILLUS ACIDOPHILUS 1 EACH TAB (FP) PO SCH (09:37)
[2016-08-24] MEDS: RAMIPRIL 5 MG CAPSULE (FP) PO SCH (09:37)
[2016-08-24] MEDS ORDERED: CEFTRIAXONE 1 GM in DEXTROSE 5%-WATER - 50 ML IVPB SCH (10:00)
[2016-08-24] MEDS: cefTRIAXone 1 GM/50 ML BAG (PRE-DOCKED) IVPB SCH ×2 (10:05→14:04)
--- NOTE | 2016-08-24 16:45 | PN ---
Progress Note, Physician Chief Complaint: Mr Villalba says he is still having blood in his urine but it is improving. Is not having difficulty urinating. Denies cp, sob, n/v. States he is having severe difficulty walking. - Current Medication List Current Medications: Active Medications Acetaminophen (Tylenol -) 650 mg PO Q4H PRN PRN Reason: FEVER OR PAIN Last Admin: 08/24/16 13:58 Dose: 650 mg Atorvastatin Calcium (Lipitor -) 10 mg PO HS [facility] Last Admin: 08/24/16 01:49 Dose: 10 mg Ceftriaxone Sodium (Rocephin 1gm Ivpb (Pre-Docked)) 1 gm IVPB DAILY [facility] Last Admin: 08/24/16 14:04 Dose: 1 gm Sodium Chloride (Normal Saline -) 1,000 mls @ 50 mls/hr IV ASDIR [facility] Stop: 08/24/16 16:51 Last Admin: 08/23/16 16:56 Dose: 50 mls/hr Lactobacillus Acidophilus (Bacid -) 1 tab PO DAILY [facility] Last Admin: 08/24/16 09:37 Dose: 1 tab Ondansetron HCl (Zofran Injection) 4 mg IVPB Q6H PRN PRN Reason: NAUSEA Ramipril (Altace -) 5 mg PO DAILY [facility] Last Admin: 08/24/16 09:37 Dose: 5 mg - Objective Vital Signs: Vital Signs Temperature 98.1 F 08/24/16 14:10 Pulse Rate 88 08/24/16 14:10 Respiratory Rate 18 08/24/16 14:10 Blood Pressure 124/75 08/24/16 14:10 O2 Sat by Pulse Oximetry (%) 93 L 08/24/16 02:00 Constitutional: Yes: Well Nourished, No Distress, Calm Cardiovascular: Yes: Regular Rate and Rhythm. No: Gallop, Murmur, Rub Respiratory: Yes: Regular, CTA Bilaterally. No: Rales, Rhonchi, Wheezes Gastrointestinal: Yes: Normal Bowel Sounds, Soft. No: Distention, Tenderness Extremities: Yes: WNL Edema: No Labs: INR, PTT INR 1.11 (0.82-1.09) 08/23/16 12:51 Problem List - Problems (1) Hematuria Code(s): R31.9 - HEMATURIA, UNSPECIFIED (2) UTI (urinary tract infection) Code(s): N39.0 - URINARY TRACT INFECTION, SITE NOT SPECIFIED (3) HTN (hypertension) Code(s): I10 - ESSENTIAL (PRIMARY) HYPERTENSION Assessment/Plan (1) Hematuria Assessment/Plan: -still with hematuria, improving -urology consulted and made aware of presentation -awaiting recommendations -will continue IVF to maximize urine output -renal ultrasound negative for nephrolithiasis Code(s): R31.9 - HEMATURIA, UNSPECIFIED (2) UTI (urinary tract infection) Assessment/Plan: -patient noted to have UTI -most likely cause of hematuria (cystitis) -continue rocephin -follow up cultures Code(s): N39.0 - URINARY TRACT INFECTION, SITE NOT SPECIFIED (3) HTN (hypertension) Assessment/Plan: -controlled -continue ramipril Code(s): I10 - ESSENTIAL (PRIMARY) HYPERTENSION (4) Weakness -patient with increasing weakness -seen by PT, unsafe discharge home -will make inpatient as will need more physical therapy
[2016-08-24 19:02] LABS: TROPONIN I < 0.02 ng/ml (0.00-0.05)
--- NOTE | 2016-08-25 07:24 | PN ---
Progress Note (short form) - Note Progress Note: PATIENT WITH GROSS HEMATURIA. NO DYSURIA / NO ABDOMINAL PAIN. RENAL US NORMAL KIDNEYS . ON ROCEPHIN. URINE C& S CONTAMINATED. NO CP / NO SOB / NO PALPITATIONS . SPOKE WITH < >DR STEPHENS YESTERDAY . WILL SEE TODAY. CYSTOSCOPY TO FOLLOW. PATIENT FAILED PT EVAL . HE HAS HY OF FALLS AT HOME. 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 WILL REQUIRE SNF PLACEMENT. Selected Entries 08/25/16 06:00 Temperature 97.9 F Pulse Rate 63 Respiratory 18 Rate Blood Pressure 119/77 Laboratory Tests 08/23/16 08/23/16 08/24/16 12:51 12:51 08:10 WBC 6.1 RBC 4.17 Hgb 13.3 Hct 38.4 MCV 92.1 MCHC 34.7 RDW 14.5 Plt Count 225 INR 1.11 Sodium Potassium Chloride Carbon Dioxide Anion Gap BUN Creatinine Random Glucose Calcium Phosphorus Magnesium Creatine Kinase Troponin I Urine Color Dk. red Urine Appearance Clear Urine pH 7.0 Ur Specific Benson 1.025 Urine Protein 3+ H Urine Glucose (UA) Negative Urine Ketones Negative Urine Blood 3+ H Urine Nitrite Positive Urine Bilirubin Negative Urine Urobilinogen 1.0 e.u/dl Ur Leukocyte Esterase 2+ H Urine RBC > 100 08/24/16 08/24/16 08:10 18:00 WBC RBC Hgb Hct MCV MCHC RDW Plt Count INR Sodium 142 Potassium 4.0 Chloride 108 H Carbon Dioxide 26 D Anion Gap 8 BUN 12 D Creatinine 0.7 D Random Glucose 143 H Calcium 8.3 L Phosphorus 2.9 Magnesium 2.2 Creatine Kinase 81 Troponin I < 0.02 Urine Color Urine Appearance Urine pH Ur Specific Benson Urine Protein Urine Glucose (UA) Urine Ketones Urine Blood Urine Nitrite Urine Bilirubin Urine Urobilinogen Ur Leukocyte Esterase Urine RBC P/E HEENT <> NEG / CAROTIDS 2 + <> NO BRUITS. COR < S 1 S2 > NO M / NO GALLOPS. CHEST <> FEW SCATTERED RHONCHI ABD <> SOFT / OBESE / NO HEPATOSPLENOMEGALY. EXT <> LE STASIS SKIN CHANGES / OA CHANGES KNEES. IMP: HEMATURIA PROSTATE CA DIABETES MELLITUS DIET CONTROLLED HYPERCHOLESTEROLEMIA OSTEOPOROSIS POLYNEUROPATHY HY RT HIP FX S/P HEMIARTHROPLAST B 12 DEF HTN PLAN : EVAL FOLLOW LABS MONITOR ELECTROLYTES ANTIBIOTICS PT RX / SNF PLACEMENT.
[2016-08-25 07:44] LABS: BASOPHIL 1.2 % (0-2.0); EOSINOPHIL 4.1 % (0-4.5); MCH 32.3 pg (25.7-33.7); MCHC 34.8 g/dl (32.0-35.9); MEAN CELL VOLUME 92.7 fl (80-96); MEAN PLT VOLUME 6.7 fl (7.5-11.1); NEUTROPHILS 60.7 % (42.8-82.8); PLATELET COUNT 221 K/MM3 (134-434); RDW 14.7 % (11.9-15.9)
[2016-08-25 08:08] LABS: CALCIUM 8.6 mg/dL (8.5-10.1)
[2016-08-25 08:11] LABS: TROPONIN I < 0.02 ng/ml (0.00-0.05)
[2016-08-25 08:12] LABS: CREATININE 0.9 mg/dL (0.7-1.3); MAGNESIUM 2.2 mg/dL (1.8-2.4); PHOSPHOROUS 3.2 mg/dL (2.5-4.9)
[2016-08-25] MEDS: ACETAMINOPHEN 325 MG TABLET (FP) PO PRN ×2 (08:35→18:16)
[2016-08-25] MEDS: RAMIPRIL 5 MG CAPSULE (FP) PO SCH (09:16)
[2016-08-25] MEDS: LACTOBACILLUS ACIDOPHILUS 1 EACH TAB (FP) PO SCH (09:17)
[2016-08-25] MEDS: cefTRIAXone 1 GM/50 ML BAG (PRE-DOCKED) IVPB SCH ×2 (12:58)
--- NOTE | 2016-08-25 13:23 | CONSULT ---
Consult - text type - Consultation Consultation Note: 76 yo debilitated male w recent gross hematuria Pt been voiding spontaneously w min pvr HCT 37 ARVIND unremarkable Urine currently clear and dark No clotts Will arrange for diagnostic cystoscopy
[2016-08-25] MEDS: LIDOCAINE 5% TOPICAL PATCH TP SCH (14:30)
[2016-08-25] MEDS: ATORVASTATIN CA 10 MG TABLET (FP) PO SCH (21:00)
--- NOTE | 2016-08-26 08:07 | PN ---
[id number] PLANNED FOR AM. HE FEELS WELL. HE DENIES ANY CP / SOB / PALPITATIONS. MAINTAINED ON ROCEPHIN. URINE C& S REPEATED. WILL NEED EXTENSIVE PT & SNF PLACEMENT DUE TO DEMYELINATING MOTOR / SENSORY NEUROPATHY WITH DIFFICULTY AMBULATING / FREQ. FALLS AT HOME. Selected Entries Selected Entries 08/26/16 06:00 Temperature 97.4 F L Pulse Rate 74 Respiratory 18 Rate Blood Pressure 132/71 Laboratory Tests Laboratory Tests P/E HEENT <> NECK SUPPLE / CAROTIDS 2 + <> NO BRUITS. COR < S 1 S2 > NO M / NO GALLOPS. CHEST <>CLEAR P & A . ABD <> SOFT / OBESE / NON TENDER. EXT <> LE SKIN CHANGES FROM STASIS // NO CALF TENDERNESS // NO EDEMA. IMP: HEMATURIA PROSTATE CA DIABETES MELLITUS DIET CONTROLLED HYPERCHOLESTEROLEMIA OSTEOPOROSIS POLYNEUROPATHY HY RT HIP FX S/P HEMIARTHROPLAST B 12 DEF HTN PLAN :CYSTOSCOPY IN AM FOLLOWUP CONTINUE ROCEPHIN IN HOSPITAL PT / SNF / REHAB PLACEMENT.
[2016-08-26] MEDS: RAMIPRIL 5 MG CAPSULE (FP) PO SCH (09:01)
[2016-08-26] MEDS: LIDOCAINE 5% TOPICAL PATCH TP SCH (09:01)
[2016-08-26] MEDS: LACTOBACILLUS ACIDOPHILUS 1 EACH TAB (FP) PO SCH (09:01)
[2016-08-26] MEDS: cefTRIAXone 1 GM/50 ML BAG (PRE-DOCKED) IVPB SCH (09:01)
[2016-08-26] MEDS: ATORVASTATIN CA 10 MG TABLET (FP) PO SCH (22:22)
[2016-08-26] MEDS: ACETAMINOPHEN 325 MG TABLET (FP) PO PRN (22:24)
[2016-08-27] MEDS: RAMIPRIL 5 MG CAPSULE (FP) PO SCH (10:23)
[2016-08-27] MEDS: LACTOBACILLUS ACIDOPHILUS 1 EACH TAB (FP) PO SCH (10:23)
[2016-08-27] MEDS: LIDOCAINE 5% TOPICAL PATCH TP SCH (10:23)
[2016-08-27] MEDS: cefTRIAXone 1 GM/50 ML BAG (PRE-DOCKED) IVPB SCH (10:23)
--- NOTE | 2016-08-27 11:47 | PN ---
Progress Note, Physician Chief Complaint: Mr Villalba says his urine is still bloody but improving. Minimal ambulation with physical therapy. No cp, sob, n/v. - Current Medication List Current Medications: Active Medications Acetaminophen (Tylenol -) 650 mg PO Q4H PRN PRN Reason: FEVER OR PAIN Last Admin: 08/26/16 22:24 Dose: 650 mg Atorvastatin Calcium (Lipitor -) 10 mg PO HS [facility] Last Admin: 08/26/16 22:22 Dose: 10 mg Ceftriaxone Sodium (Rocephin 1gm Ivpb (Pre-Docked)) 1 gm IVPB DAILY [facility] Last Admin: 08/27/16 10:23 Dose: 1 gm Lactobacillus Acidophilus (Bacid -) 1 tab PO DAILY [facility] Last Admin: 08/27/16 10:23 Dose: 1 tab Lidocaine (Lidoderm Patch -) 1 patch TP DAILY [facility] Last Admin: 08/27/16 10:23 Dose: 1 patch Ondansetron HCl (Zofran Injection) 4 mg IVPB Q6H PRN PRN Reason: NAUSEA Ramipril (Altace -) 5 mg PO DAILY [facility] Last Admin: 08/27/16 10:23 Dose: 5 mg - Objective Vital Signs: Vital Signs Temperature 98.3 F 08/27/16 10:04 Pulse Rate 61 08/27/16 10:04 Respiratory Rate 20 08/27/16 10:04 Blood Pressure 132/78 08/27/16 10:04 O2 Sat by Pulse Oximetry (%) 94 L 08/26/16 22:00 Constitutional: Yes: No Distress, Calm, Obese Cardiovascular: Yes: Regular Rate and Rhythm. No: Gallop, Murmur, Rub Respiratory: Yes: Regular, CTA Bilaterally. No: Rales, Rhonchi, Wheezes Gastrointestinal: Yes: Normal Bowel Sounds, Soft. No: Distention, Tenderness Extremities: Yes: WNL Edema: No Labs: CBC, BMP 08/25/16 06:00 08/25/16 06:00 INR, PTT INR 1.11 (0.82-1.09) 08/23/16 12:51 Problem List - Problems (1) Hematuria Code(s): R31.9 - HEMATURIA, UNSPECIFIED (2) UTI (urinary tract infection) Code(s): N39.0 - URINARY TRACT INFECTION, SITE NOT SPECIFIED (3) HTN (hypertension) Code(s): I10 - ESSENTIAL (PRIMARY) HYPERTENSION Assessment/Plan (1) Hematuria Assessment/Plan: -appreciate urology assistance -planning for diagnostic cystoscopy -continue rocephin currently, day 5 Code(s): R31.9 - HEMATURIA, UNSPECIFIED (2) UTI (urinary tract infection) Assessment/Plan: -first urine cultures showing contaminant -second cultures sent, however receiving antibiotics so may not be elucidating -continue rocephin currently Code(s): N39.0 - URINARY TRACT INFECTION, SITE NOT SPECIFIED (3) HTN (hypertension) Assessment/Plan: -controlled -continue ramipril Code(s): I10 - ESSENTIAL (PRIMARY) HYPERTENSION (4) Weakness -continue PT -will need SNF placement for rehab
[2016-08-27] MEDS: ATORVASTATIN CA 10 MG TABLET (FP) PO SCH (22:20)
[2016-08-28] MEDS: ACETAMINOPHEN 325 MG TABLET (FP) PO PRN (00:38)
[2016-08-28 07:39] LABS: BASOPHIL 0.9 % (0-2.0); EOSINOPHIL 3.6 % (0-4.5); MCHC 34.8 g/dl (32.0-35.9); MEAN CELL VOLUME 91.8 fl (80-96); MEAN PLT VOLUME 6.7 fl (7.5-11.1); NEUTROPHILS 62.9 % (42.8-82.8); PLATELET COUNT 216 K/MM3 (134-434); RDW 14.3 % (11.9-15.9); WHITE BLOOD COUNT 5.5 K/mm3 (4.0-10.0)
[2016-08-28 07:51] LABS: CALCIUM 8.4 mg/dL (8.5-10.1); MAGNESIUM 2.3 mg/dL (1.8-2.4)
[2016-08-28 07:52] LABS: COCKROFT - GAULT 109.1; CREATININE 0.8 mg/dL (0.7-1.3); PHOSPHOROUS 3.4 mg/dL (2.5-4.9)
[2016-08-28] MEDS ORDERED: LIDOCAINE HCL 2% JELLY 10 ML CARTRIDGE ONE (08:06)
--- NOTE | 2016-08-28 08:29 | OP ---
Operative Note - Note: Operative Date: 08/28/16 Pre-Operative Diagnosis: gross hematuria Operation: flexible cystoscopy Findings: cystitis, prostate bleeding Post-Operative Diagnosis: Same as Pre-op Surgeon: Anthony Yoder Anesthesia: Local Estimated Blood Loss (mls): 0 Operative Report Dictated: Yes
[2016-08-28] MEDS: cefTRIAXone 1 GM/50 ML BAG (PRE-DOCKED) IVPB SCH (09:54)
[2016-08-28] MEDS: LIDOCAINE 5% TOPICAL PATCH TP SCH (09:55)
[2016-08-28] MEDS: RAMIPRIL 5 MG CAPSULE (FP) PO SCH (09:55)
[2016-08-28] MEDS: LACTOBACILLUS ACIDOPHILUS 1 EACH TAB (FP) PO SCH (09:55)
[2016-08-28] MEDS: FINASTERIDE 5 MG TABLET (FP) PO SCH (09:55)
--- NOTE | 2016-08-28 14:40 | PN ---
Progress Note, Physician Chief Complaint: Mr Villalba says he is doing well and is without complaint. No cp, sob, n/v. - Current Medication List Current Medications: Active Medications Acetaminophen (Tylenol -) 650 mg PO Q4H PRN PRN Reason: FEVER OR PAIN Last Admin: 08/28/16 00:38 Dose: 650 mg Atorvastatin Calcium (Lipitor -) 10 mg PO HS [facility] Last Admin: 08/27/16 22:20 Dose: 10 mg Ceftriaxone Sodium (Rocephin 1gm Ivpb (Pre-Docked)) 1 gm IVPB DAILY [facility] Last Admin: 08/28/16 09:54 Dose: 1 gm Finasteride (Proscar -) 5 mg PO DAILY [facility] Last Admin: 08/28/16 09:55 Dose: 5 mg Lactobacillus Acidophilus (Bacid -) 1 tab PO DAILY [facility] Last Admin: 08/28/16 09:55 Dose: 1 tab Lidocaine (Lidoderm Patch -) 1 patch TP DAILY [facility] Last Admin: 08/28/16 09:55 Dose: 1 patch Ondansetron HCl (Zofran Injection) 4 mg IVPB Q6H PRN PRN Reason: NAUSEA Ramipril (Altace -) 5 mg PO DAILY [facility] Last Admin: 08/28/16 09:55 Dose: 5 mg - Objective Vital Signs: Vital Signs Temperature 98.2 F 08/28/16 14:25 Pulse Rate 70 08/28/16 14:25 Respiratory Rate 20 08/28/16 14:25 Blood Pressure 130/78 08/28/16 14:25 O2 Sat by Pulse Oximetry (%) 92 L 08/28/16 12:25 Constitutional: Yes: Well Nourished, No Distress, Calm Cardiovascular: Yes: Regular Rate and Rhythm. No: Gallop, Murmur, Rub Respiratory: Yes: Regular, CTA Bilaterally. No: Rales, Rhonchi, Wheezes Gastrointestinal: Yes: Normal Bowel Sounds, Soft. No: Distention, Tenderness Extremities: Yes: WNL Edema: No Labs: CBC, BMP 08/28/16 06:20 08/28/16 06:20 INR, PTT INR 1.11 (0.82-1.09) 08/23/16 12:51 Problem List - Problems (1) Hematuria Code(s): R31.9 - HEMATURIA, UNSPECIFIED (2) UTI (urinary tract infection) Code(s): N39.0 - URINARY TRACT INFECTION, SITE NOT SPECIFIED (3) HTN (hypertension) Code(s): I10 - ESSENTIAL (PRIMARY) HYPERTENSION Assessment/Plan (1) Hematuria Assessment/Plan: -s/p cystoscopy -showing cystitis and prostate bleeding -awaiting recommendations from urology if anything further is needed Code(s): R31.9 - HEMATURIA, UNSPECIFIED (2) UTI (urinary tract infection) Assessment/Plan: -first urine cultures showing contaminant -second cultures sent, and negative, but already on rocephin -suspect sensitive to cephalosporins -continue rocephin currently, day 7 Code(s): N39.0 - URINARY TRACT INFECTION, SITE NOT SPECIFIED (3) HTN (hypertension) Assessment/Plan: -controlled -continue ramipril Code(s): I10 - ESSENTIAL (PRIMARY) HYPERTENSION (4) Weakness -continue PT -will need SNF placement for rehab Dispo -plan for discharge tomorrow
--- NOTE | 2016-08-28 19:46 | OP ---
DATE OF OPERATION: 08/28/2016 PREOPERATIVE DIAGNOSIS: Gross hematuria. POSTOPERATIVE DIAGNOSIS: Gross hematuria. PROCEDURE: Cystoscopy. SURGEON: Dawson Tsang M.D. INDICATION: Patient is a 76-year-old male with a history of prostate cancer and BPH, last seen in the office approximately 5 years ago, recently admitted for gross hematuria. He was recently admitted status post fall, Quinones catheter had been inserted at that time, and then recently readmitted for gross hematuria with evidence of UTI. Hematuria is slowly clearing. Patient is being taken to OR under local anesthetic for general flexible cystoscopy. DESCRIPTION OF PROCEDURE: The patient was taken to the OR and placed supine position. The urethra was anesthetized with lidocaine jelly. Flexible cystoscope was inserted to the urethra without difficulty. The bladder was visualized. There was mild cystitis at the trigone, otherwise rest of the bladder appeared normal. There were no tumors noted, and no stone. There was a small amount of oozing from the prostatic urethra as well. Cystocope was then removed. The patient was taken back to the floor. The plan is we will start finasteride for the prostatic bleeding and BPH. Hematuria should resolve within 3 days. DAWSON TSANG M.D. [id number] MTDD
[2016-08-28] MEDS: ATORVASTATIN CA 10 MG TABLET (FP) PO SCH (21:06)
[2016-08-29 06:55] LABS: BASOPHIL 1.2 % (0-2.0); EOSINOPHIL 3.2 % (0-4.5); MCH 32.3 pg (25.7-33.7); MCHC 35.3 g/dl (32.0-35.9); MEAN CELL VOLUME 91.3 fl (80-96); MEAN PLT VOLUME 6.3 fl (7.5-11.1); PLATELET COUNT 205 K/MM3 (134-434); RDW 14.4 % (11.9-15.9); WHITE BLOOD COUNT 6.1 K/mm3 (4.0-10.0)
[2016-08-29 07:21] LABS: CALCIUM 8.8 mg/dL (8.5-10.1); COCKROFT - GAULT 109.1; CREATININE 0.8 mg/dL (0.7-1.3); MAGNESIUM 2.1 mg/dL (1.8-2.4); PHOSPHOROUS 3.2 mg/dL (2.5-4.9)
[2016-08-29] MEDS: RAMIPRIL 5 MG CAPSULE (FP) PO SCH (09:24)
[2016-08-29] MEDS: LACTOBACILLUS ACIDOPHILUS 1 EACH TAB (FP) PO SCH (09:24)
[2016-08-29] MEDS: cefTRIAXone 1 GM/50 ML BAG (PRE-DOCKED) IVPB SCH (09:24)
[2016-08-29] MEDS: LIDOCAINE 5% TOPICAL PATCH TP SCH (09:25)
[2016-08-29] MEDS: FINASTERIDE 5 MG TABLET (FP) PO SCH (09:25)
--- NOTE | 2016-08-29 12:31 | DS ---
Physical Examination Vital Signs: Vital Signs Temperature 98.5 F 08/29/16 10:00 Pulse Rate 82 08/29/16 10:00 Respiratory Rate 20 08/29/16 10:00 Blood Pressure 118/70 08/29/16 10:00 O2 Sat by Pulse Oximetry (%) 92 L 08/28/16 20:00 Constitutional: Yes: Well Nourished, No Distress, Calm Cardiovascular: Yes: Regular Rate and Rhythm. No: Gallop, Murmur, Rub Respiratory: Yes: Regular, CTA Bilaterally. No: Rales, Rhonchi, Wheezes Gastrointestinal: Yes: Normal Bowel Sounds, Soft. No: Distention, Tenderness Extremities: Yes: WNL Edema: No Labs: CBC, BMP 08/29/16 06:10 08/29/16 06:10 Discharge Summary Reason For Visit: HEMATURA Current Active Problems Hematuria (Acute) UTI (urinary tract infection) (Acute) Hospital Course: (1) Hematuria Code(s): R31.9 - HEMATURIA, UNSPECIFIED (2) UTI (urinary tract infection) Code(s): N39.0 - URINARY TRACT INFECTION, SITE NOT SPECIFIED (3) HTN (hypertension) Code(s): I10 - ESSENTIAL (PRIMARY) HYPERTENSION (4) Weakness Mr Villalba is a pleasant 76 year old male who comes in with hematuria and weakness. He was admitted to the hospital and treated for a UTI. He was seen by urology and underwent cystoscopy. He was found to have a bleeding prostate and cystitis. He was started on finasteride. He finished a full course of antibiotics. He is currently stable for discharge to SNF 35 minutes spent in preparation of this discharge Condition: Stable - Instructions Diet, Activity, Other Instructions: regular diet. Up with assistance, further activity per PT at SNF Referrals: Anthony Yoder MD [Staff Physician] - Omar Lovett MD [Primary Care Provider] - Disposition: [facility] - Home Medications Comprehensive Discharge Medication List: Ambulatory Orders Alendronate Sodium/Vitamin D3 [Fosamax Plus D 70 mg-5,600 Iu vIT d] 1 each PO ASDIR 08/04/16 Pravastatin Sodium 20 mg PO DAILY 08/04/16 Ramipril 5 mg PO ASDIR 08/04/16 Acetaminophen [Tylenol .Regular Strength -] 650 mg PO Q4H PRN #0 tablet Finasteride [Proscar -] 5 mg PO DAILY tablet 08/29/16
[2016-08-29 14:51] VITALS: BP 109/64; PULSE 100; TEMP 98
== END 2016-08-29 17:31 | DRG 690 ==
LOC: JER 12:20 → JERBED 17:20 → J5S 08-24 01:43 → OBSVTOIN 08-24 14:14
PROVIDERS: ADMIT Internal Medicine; ATTEND Internal Medicine
PROC: 0TJB8ZZ Inspection of Bladder, Via Natural or Artificial Opening Endoscopic (ICD-10-PCS; principal; 2016-08-28 08:00)
DX: N30.01 Acute cystitis with hematuria (principal); I10 Essential (primary) hypertension; E78.5 Hyperlipidemia, unspecified; E13.42 Other specified diabetes mellitus with diabetic polyneuropathy; E66.9 Obesity, unspecified; Z68.33 Body mass index [BMI] 33.0-33.9, adult; Z96.641 Presence of right artificial hip joint; R29.6 Repeated falls; M81.0 Age-related osteoporosis without current pathological fracture; C61 Malignant neoplasm of prostate
CPT/HCPCS: 36415; 71010-TC; 76775-TC; 80048; 80053; 81003; 81015; 82550; 82607; 83036; 83735; 84100; 84484; 85025; 85610; 86850; 86900; 86901; 87086; 93005; 93010; 97116-GP; 97161-GP; 99283-25; G0378

== ENCOUNTER 2016-10-11 14:31 | Emergency (ER) | payer OTHER, MEDICARE ==
[2016-10-11 14:44] VITALS: TEMP 98; BMI 33.7
--- NOTE | 2016-10-11 15:38 | PDOC ---
History of Present Illness - General History Source: Patient Exam Limitations: No Limitations - History of Present Illness Initial Comments: 10/11/16 15:39 The patient is a 76 year old male with a significant past medical history of hyperlipidemia, diet controlled prediabetes, hyperlipidemia, hypertension, and osteoarthritis, sent by PCP to the Emergency Department with bilateral feet swelling for a few days. The patient reports that two weeks ago he was at [facility] [place] for multiple falls and osteoarthritis. He reports that his feet have been progressively more swollen over the past week since he has been home from rehab, but denies pain. He denies calf pain. He admits that he has had a very low level of activity over the past week since discharged from the rehab center. He admits to chronic right knee swelling, as he needs a TKA. The patient denies nausea, vomiting, and diarrhea. Patient denies fever, cough, and chills. Patient denies chest pain, palpitations, and shortness of breath. PCP: Dr. Lovett Past Medical Hx: prostate ca, peripheral neuropathy <Adri Carter - Last Filed: 10/11/16 16:58> - General History Source: Patient, Old Records Exam Limitations: No Limitations <Rene Hendricks - Last Filed: 10/11/16 17:23> - General Chief Complaint: Edema Stated Complaint: R/O DVT Time Seen by Provider: 10/11/16 15:00 Past History <Adri Carter - Last Filed: 10/11/16 16:58> - Past Medical History Anemia: No Asthma: No Cancer: Yes (PROSTATE) Cardiac Disorders: No CVA: No COPD: No CHF: No Dementia: No Diabetes: Yes (Borderline) GI Disorders: Yes (COLON POLYPS) Disorders: No HTN: Yes Hypercholesterolemia: Yes Liver Disease: No Seizures: No Thyroid Disease: No - Surgical History Abdominal Surgery: No Appendectomy: No Cardiac Surgery: No Cholecystectomy: No Lung Surgery: No Neurologic Surgery: No Orthopedic Surgery: Yes (Bilaterl wrist, HIP FRACTURE 2011) - Immunization History Immunization Up to Date: Yes - Psycho/Social/Smoking Cessation Hx Suicidal Ideation: No Smoking Status: No Smoking History: Former smoker Have you smoked in the past 12 months: No Number of Cigarettes Smoked Daily: 0 If you are a former smoker, when did you quit?: 1984 Information on smoking cessation initiated: No Hx Alcohol Use: No Drug/Substance Use Hx: No Substance Use Type: None Hx Substance Use Treatment: No <RuthieRene - Last Filed: 10/11/16 17:23> - Past Medical History Allergies/Adverse Reactions: Allergies Allergy/AdvReac Type Severity Reaction Status Date / Time No Known Allergies Allergy Verified 04/14/12 09:57 Home Medications: Ambulatory Orders Pravastatin Sodium 20 mg PO DAILY 08/04/16 Ramipril 2.5 mg PO ASDIR 08/04/16 Review of Systems - Review of Systems Able to Perform ROS?: Yes Comments:: 10/11/16 15:39 CONSTITUTIONAL: No reported: Fever, Chills, Diaphoresis, Generalized Weakness, Malaise, Loss of Appetite HEENT: No reported: Rhinorrhea, Nasal Congestion, Throat Pain, Throat Swelling, Difficulty Swallowing, Mouth Swelling, Ear Pain, Eye Pain, Visual Changes CARDIOVASCULAR: No reported: Chest Pain, Syncope, Palpitations, Irregular Heart Rate, Lightheadedness, Peripheral Edema RESPIRATORY: No reported: Cough, Shortness of Breath, SOB with Exertion, Orthopnea, Wheezing , Stridor, Hemoptysis GASTROINTESTINAL: No reported: Abdominal pain, Abdominal Distension, Nausea, Vomiting, Diarrhea, Constipation, Melena, Hematochezia GENITOURINARY: No reported: Dysuria, Frequency, Urgency, Hesitancy, Flank Pain, Genital Pain MUSCULOSKELETAL: Present: + bilateral foot edema, + right knee edema (chronic) No reported: Myalgia, Back pain, Neck Pain SKIN: No reported: Rash, Itching, Pallor HEMATOLOGIC/IMMUNOLOGIC: No reported: Easy Bleeding, Easy Bruising, Lymphadenopathy, Frequent infections ENDOCRINE: No reported: Unexplained Weight Gain, Unexplained Weight Loss, Heat Intolerance , Cold Intolerance NEUROLOGIC: No reported: Headache, Focal Weakness, Paresthesias, Vertigo, Lightheadedness, Unsteady Gait, Seizure, Mental Status Changes, Incontinence PSYCHIATRIC: No reported: Anxiety, Depression <Adri Carter - Last Filed: 10/11/16 16:58> *Physical Exam - Vital Signs Last Vital Signs Temp Pulse Resp BP Pulse Ox 98 F 103 H 20 124/100 93 L 10/11/16 14:42 10/11/16 14:42 10/11/16 14:42 10/11/16 14:42 10/11/16 14:42 - Physical Exam Comments: 10/11/16 15:40 GENERAL: The patient is awake, alert, and fully oriented, Nontoxic - in no acute distress. HEAD: Normocephalic, atraumatic. EYES: extraocular movements intact, sclera anicteric, conjunctiva clear. ENT: Normal voice, Moist mucous membranes. NECK: Normal range of motion, No JVD LUNGS: Breath sounds equal, clear to auscultation bilaterally. No wheezes, no rhonchi, no rales. HEART: Regular rate and rhythm, normal S1 and S2 without murmur, rub or gallop. ABDOMEN: Soft, nontender, normoactive bowel sounds. No guarding, no rebound. No masses. No CVA tenderness EXTREMITIES: 2+ pitting pedal edema bilaterally. Sensation intact throughout. Leona negative bilaterally. Normal range of motion. No clubbing or cyanosis. No cords, erythema, or tenderness. NEUROLOGICAL: No facial asymmetry, Normal speech, normal gait. PSYCH: Normal mood, normal affect. SKIN: Warm, Dry, normal turgor. <Adri Carter - Last Filed: 10/11/16 16:58> - Vital Signs Last Vital Signs Temp Pulse Resp BP Pulse Ox 98 F 103 H 20 124/100 93 L 10/11/16 14:42 10/11/16 14:42 10/11/16 14:42 10/11/16 14:42 10/11/16 14:42 <Rene Hendricks - Last Filed: 10/11/16 17:23> ED Treatment Course - LABORATORY CBC & Chemistry Diagram: 10/11/16 15:30 10/11/16 15:30 - RADIOLOGY Radiograph Interpretation: 10/11/16 16:58 Bilateral LE Ultrasound As reviewed by Dr. Kamron Capone IMPRESSION: No DVT identified involving either leg. Complex bilateral popliteal cysts. <Adri Carter - Last Filed: 10/11/16 16:58> - LABORATORY CBC & Chemistry Diagram: 10/11/16 15:30 10/11/16 15:30 - RADIOLOGY Radiology Studies Ordered: Category Date Time Status DUPLEX VASCUL US-2LEGS [US] Stat Ultrasound 10/11/16 15:29 Ordered <Rene Hendricks - Last Filed: 10/11/16 17:23> Medical Decision Making - Medical Decision Making 10/11/16 15:37 A portion of this note was documented by scribe services under my direction. I have reviewed the details of the note, within reason, and agree with the documentation with the following case summary and management plan written by me. Patient treated in the ED. Nursing notes are reviewed and incorporated into the medical decision-making. Vital signs reviewed. Peripheral IV access obtained by the nurse, laboratory studies are drawn and sent, reviewed and interpreted by myself. Vital Signs Temp Pulse Resp BP Pulse Ox 98 F 103 H 20 124/100 93 L 10/11/16 14:42 10/11/16 14:42 10/11/16 14:42 10/11/16 14:42 10/11/16 14:42 76 year old male with past medical history of prediabetes, hyperlipidemia, obesity, peripheral neuropathy, hypertension, hyperlipidemia, prostate cancer in remission presents with lower extremity bilateral pedal edema for one week. The patient was recently discharged from subacute rehabilitation facility for multiple falls. At that time, patient reports that he had some mild to moderate pedal edema was ambulatory with assistance for his rehabilitation. However, upon returning home, the patient has not been walking and sitting most of the time. Has noted nonpainful lower extremity bilateral pedal edema. Patient denies chest pain or shortness of breath. Patient had contacted his doctor advised patient to be sent to the ED for rule out deep venous thrombosis. I suspect that the patient likely has gravity dependent edema and some elements of venous stasis. Homans sign negative though we'll obtain duplex to rule out DVTs. We'll also obtain blood work including a comprehensive metabolic panel to look for acute renal sufficiency or hypoalbuminemia, though low suspicion. If workup is negative, I advised the patient to elevate the lower extremities and to follow-up with his primary care physician. 10/11/16 17:19 CBC, BMP 10/11/16 15:30 10/11/16 15:30 CMP Sodium 142 mmol/L (136-145) 10/11/16 15:30 Potassium 4.4 mmol/L (3.5-5.1) 10/11/16 15:30 Chloride 103 mmol/L (98-107) 10/11/16 15:30 Carbon Dioxide 27 mmol/L (21-32) 10/11/16 15:30 Anion Gap 12 (8-16) 10/11/16 15:30 BUN 16 mg/dL (7-18) 10/11/16 15:30 Creatinine 0.8 mg/dL (0.7-1.3) 10/11/16 15:30 Creat Clearance w eGFR > 60 (>60) 10/11/16 15:30 Random Glucose 110 mg/dL (74-106) H 10/11/16 15:30 Calcium 9.0 mg/dL (8.5-10.1) 10/11/16 15:30 Total Bilirubin 0.5 mg/dL (0.2-1.0) D 10/11/16 15:30 AST 17 U/L (15-37) D 10/11/16 15:30 ALT 27 U/L (12-78) D 10/11/16 15:30 Alkaline Phosphatase 72 U/L (45-117) 10/11/16 15:30 Total Protein 6.8 g/dl (6.4-8.2) 10/11/16 15:30 Albumin 3.7 g/dl (3.4-5.0) 10/11/16 15:30 Urine Test Results Urine Color Ltyellow 10/11/16 16:01 Urine Appearance Clear 10/11/16 16:01 Urine pH 5.0 (5.0-8.0) D 10/11/16 16:01 Urine Protein Negative (NEGATIVE) 10/11/16 16:01 Urine Glucose (UA) Negative (NEGATIVE) 10/11/16 16:01 Urine Ketones Negative (NEGATIVE) 10/11/16 16:01 Urine Blood Negative (NEGATIVE) 10/11/16 16:01 Urine Nitrite Negative (NEGATIVE) 10/11/16 16:01 Urine Bilirubin Negative (NEGATIVE) 10/11/16 16:01 Ur Leukocyte Esterase Negative (NEGATIVE) 10/11/16 16:01 Labs reviewed. Unremarkable. Ultrasound demonstrates bilateral Joe's cyst. This is likely the source of the lower extremity swelling. I encouraged patient to elevate the lower extremity is much as he can't help with the swelling. He is given follow-up with orthopedics. Patient verbalizes understanding agrees with plan. I discussed the physical exam findings, ancillary test results and final diagnoses with the patient. I answered all of the patient's questions. The patient was satisfied with the care received and felt comfortable with the discharge plan and treatment plan. The patient will call their primary care physician within 24 hours to arrange follow-up and will return to the Emergency Department with any new, persistant or worsening symptoms. <Rene Hendricks - Last Filed: 10/11/16 17:23> *DC/Admit/Observation/Transfer - Attestations Scribe Attestion: 10/11/16 15:40 Documentation prepared by Adri Carter, acting as medical office clerk for Rene Hendricks MD. <Adri Carter - Last Filed: 10/11/16 16:58> - Discharge Dispostion Admit: No <Rene Hendricks - Last Filed: 10/11/16 17:23> Diagnosis at time of Disposition: Bakers cyst Qualifiers: Laterality: unspecified laterality Qualified Code(s): M71.20 - Synovial cyst of popliteal space [Joe], unspecified knee - Discharge Dispostion Disposition: HOME Condition at time of disposition: Stable - Referrals Referrals: Hosea Juan MD [Staff Physician] - Niranjan Charles MD [Staff Physician] - Saravanan Guillen MD [Staff Physician] - - Patient Instructions Printed Discharge Instructions: DI for Joe's Cyst Additional Instructions: Elevate the leg as much as you can. Follow up with an orthopedist. You will need follow up. Call and schedule a follow up appointment with your primary care physician.
[2016-10-11 16:45] LABS: URINE APPEARANCE CLEAR; URINE BILIRUBIN NEGATIVE (NEGATIVE); URINE BLOOD NEGATIVE (NEGATIVE); URINE COLOR LTYELLOW; URINE GLUCOSE (UA) NEGATIVE (NEGATIVE); URINE KETONE NEGATIVE (NEGATIVE); URINE LEUK ESTERASE NEGATIVE (NEGATIVE); URINE NITRITE NEGATIVE (NEGATIVE); URINE PROTEIN NEGATIVE (NEGATIVE); URINE UROBILINOGEN NEGATIVE E.U./dl (0.2-1.0)
[2016-10-11 16:46] LABS: ALBUMIN 3.7 g/dl (3.4-5.0); ANION GAP 12 (8-16); BILIRUBIN,TOTAL 0.5 mg/dL (0.2-1.0); CO2 27 mmol/L (21-32); COCKROFT - GAULT 116.58; CREATININE 0.8 mg/dL (0.7-1.3); GLUCOSE,RANDOM 110 mg/dL (74-106); SGOT/AST 17 U/L (15-37); SGPT/ALT 27 U/L (12-78); TOT PROT 6.8 g/dl (6.4-8.2)
[2016-10-11 16:47] LABS: ALK PHOS 72 U/L (45-117); BASOPHIL 0.5 % (0-2.0); EOSINOPHIL 0.9 % (0-4.5); MCH 30.2 pg (25.7-33.7); MCHC 33.1 g/dl (32.0-35.9); MEAN CELL VOLUME 91.3 fl (80-96); MEAN PLT VOLUME 7.7 fl (7.5-11.1); NEUTROPHILS 74.1 % (42.8-82.8); PLATELET COUNT 231 K/MM3 (134-434); RDW 14.3 % (11.9-15.9)
[2016-10-11 18:55] VITALS: BP 97/65; PULSE 76
== END 2016-10-11 19:35 | disposition home or self-care (01) ==
LOC: JER 14:31
DX: M71.22 Synovial cyst of popliteal space [Baker], left knee (principal); M71.21 Synovial cyst of popliteal space [Baker], right knee; I10 Essential (primary) hypertension; E78.00 Pure hypercholesterolemia, unspecified; R73.03 Prediabetes; M19.90 Unspecified osteoarthritis, unspecified site; Z85.46 Personal history of malignant neoplasm of prostate
CPT/HCPCS: 36415; 80053; 81003; 85025; 93970-TC; 99283-25

== ENCOUNTER 2016-10-31 18:56 | Emergency (ER) | payer OTHER, MEDICARE ==
[2016-10-31 19:56] VITALS: BP 113/74; PULSE 82; TEMP 98.7; BMI 34.7
--- NOTE | 2016-10-31 20:20 | PDOC ---
History of Present Illness - General History Source: Patient Exam Limitations: No Limitations - History of Present Illness Initial Comments: 10/31/16 20:34 The patient is a 76 year old male with significant past medical history of prediabetes, obesity, peripheral neuropathy, hypertension, hyperlipidemia, prostate cancer in remission who presents to the ED for 2 weeks of diarrhea. Patient reports his last normal bowel movement was 2 weeks ago and since then he has had persistent diarrhea, which he describes as soft stools and nonbloody. Denies abdominal pain, nausea, or vomiting. Denies any new foods, sick contacts, or recent travels. States he gets slightly better when he doesn t eat and thus has been avoiding foods or liquids for the past few days. Patient reports taking imodium yesterday with resolution. The patient denies fever, chills, cough, SOB, chest pain, and palpitations. Allergies: NKDA Social History: No alcohol, tobacco, or drug use reported. Past Surgical History: bilateral wrist repair, hip fx sx PCP: Dr. Omar Lovett <Freya Cardenas - Last Filed: 10/31/16 22:20> - General History Source: Patient <Fan Gandara - Last Filed: 10/31/16 22:30> - General Chief Complaint: Diarrhea Stated Complaint: DIARRHEA Time Seen by Provider: 10/31/16 20:02 Past History <Freya Cardenas - Last Filed: 10/31/16 22:20> - Past Medical History Anemia: No Asthma: No Cancer: Yes (PROSTATE) Cardiac Disorders: No CVA: No COPD: No CHF: No Dementia: No Diabetes: Yes (Borderline) GI Disorders: Yes (COLON POLYPS) Disorders: No HTN: Yes Hypercholesterolemia: Yes Liver Disease: No Seizures: No Thyroid Disease: No - Surgical History Abdominal Surgery: No Appendectomy: No Cardiac Surgery: No Cholecystectomy: No Lung Surgery: No Neurologic Surgery: No Orthopedic Surgery: Yes (Bilaterl wrist, HIP FRACTURE 2011) - Immunization History Immunization Up to Date: Yes - Psycho/Social/Smoking Cessation Hx Suicidal Ideation: No Smoking Status: No Smoking History: Never smoked Have you smoked in the past 12 months: No Number of Cigarettes Smoked Daily: 0 If you are a former smoker, when did you quit?: 1984 Information on smoking cessation initiated: No Hx Alcohol Use: No Drug/Substance Use Hx: No Substance Use Type: None Hx Substance Use Treatment: No <Fan Gandara - Last Filed: 10/31/16 22:30> - Past Medical History Allergies/Adverse Reactions: Allergies Allergy/AdvReac Type Severity Reaction Status Date / Time No Known Allergies Allergy Verified 10/31/16 19:34 Home Medications: Ambulatory Orders Pravastatin Sodium 20 mg PO DAILY 08/04/16 Ramipril 2.5 mg PO DAILY 08/04/16 Review of Systems - Review of Systems Able to Perform ROS?: Yes Comments:: 10/31/16 20:34 CONSTITUTIONAL: Absent: fever, no chills, no fatigue EYES: Absent: visual changes ENT: Absent: ear pain, no sore throat CARDIOVASCULAR: Absent: chest pain, no palpitations RESPIRATORY: Absent: cough, no SOB GI: +diarrhea Absent: abdominal pain, no nausea, no vomiting, no constipation GENITOURINARY: Absent: dysuria, no frequency, no hematuria MUSCULOSKELETAL: Absent: back pain, no arthralgia, no myalgia SKIN: Absent: rash NEURO: Absent: headache <Freya Cardenas - Last Filed: 10/31/16 22:20> *Physical Exam - Vital Signs Last Vital Signs Temp Pulse Resp BP Pulse Ox 98.7 F 82 18 113/74 96 10/31/16 19:34 10/31/16 19:34 10/31/16 19:34 10/31/16 19:34 10/31/16 19:34 - Physical Exam Comments: 10/31/16 20:34 GENERAL: Well-appearing, well-nourished. No apparent distress. HEENT: Normocephalic, atraumatic. PERRL, EOM intact. CARDIOVASCULAR: Normal S1, S2. Regular rate and rhythm. PULMONARY: Clear to auscultation bilaterally. ABDOMEN: Soft, non-distended, non-tender. EXTREMITIES: Normal ROM in all four extremities. No gross deformities. SKIN: Warm, dry. No rash NEUROLOGICAL: No focal neurological deficits. <Freya Cardenas - Last Filed: 10/31/16 22:20> - Vital Signs Last Vital Signs Temp Pulse Resp BP Pulse Ox 98.7 F 82 18 113/74 96 10/31/16 19:34 10/31/16 19:34 10/31/16 19:34 10/31/16 19:34 10/31/16 19:34 <Fan Gandara - Last Filed: 10/31/16 22:30> ED Treatment Course - LABORATORY CBC & Chemistry Diagram: 10/31/16 20:25 10/31/16 20:25 <Freya Cardenas - Last Filed: 10/31/16 22:20> - LABORATORY CBC & Chemistry Diagram: 10/31/16 20:25 10/31/16 20:25 <Fan Gandara - Last Filed: 10/31/16 22:30> Medical Decision Making - Medical Decision Making 10/31/16 22:[address] Manpreet Sevilla who is covering for Dr. Omar Lovett (via answering service) Awaiting call back 10/31/16 22:20 Patient's case discussed with Dr. Sevilla. <Freya Cardenas - Last Filed: 10/31/16 22:20> - Medical Decision Making 10/31/16 22:27 Dr. Gandara: The scribe's documentation has been prepared under my direction and personally reviewed by me in its entirery. I confirm that the note above accurately reflects all work, treatment, procedures, and medical decision making performed by me. All studies are stable. Pt feels well. Has an appetite. Pt to be discharged. Encouraged to drink plenty of fluids. <Fan Gandara - Last Filed: 10/31/16 22:30> *DC/Admit/Observation/Transfer - Attestations Scribe Attestion: 10/31/16 20:34 Documentation prepared by Freya Cardenas, acting as medical laboratory manager for Fan Gandara MD/DO. <Freya Cardenas - Last Filed: 10/31/16 22:20> - Discharge Dispostion Admit: No <Fan Gandara - Last Filed: 10/31/16 22:30> Diagnosis at time of Disposition: Diarrhea Qualifiers: Diarrhea type: unspecified type Qualified Code(s): R19.7 - Diarrhea, unspecified - Discharge Dispostion Disposition: HOME Condition at time of disposition: Stable - Referrals Referrals: Omar Lovett MD [Primary Care Provider] - - Patient Instructions Printed Discharge Instructions: Diarrhea Additional Instructions: take all your current medications. Drink plenty of fluids. Follow up with your primary care doctor. Return if symptoms worsen
[2016-10-31] MEDS ORDERED: SODIUM CHLORIDE 1,000 ML IV STA (20:23)
[2016-10-31 20:37] LABS: BASO % 0.7 % (0-2.0); EOS % 1.5 % (0-4.5); HEMOGLOBIN 14.7 GM/dL (11.7-16.9); LYMPH % 23.3 % (8-40); MCH 30.3 pg (25.7-33.7); MCHC 33.5 g/dl (32.0-35.9); MEAN CELL VOLUME 90.6 fl (80-96); MEAN PLT VOLUME 6.9 fl (7.5-11.1); MONO % 7.7 % (3.8-10.2); NEUT % 66.8 % (42.8-82.8); PLATELET COUNT 190 K/MM3 (134-434); RBC 4.85 M/mm3 (4.00-5.60); RDW 14.6 % (11.9-15.9); WHITE BLOOD COUNT 4.8 K/mm3 (4.0-10.0)
[2016-10-31 21:05] LABS: ALBUMIN 3.9 g/dl (3.4-5.0); AMYLASE 57 U/L (25-115); ANION GAP 8 (8-16); BLOOD UREA NITROGEN 11 mg/dL (7-18); CALCIUM 9.4 mg/dL (8.5-10.1); CHLORIDE 105 mmol/L (98-107); CO2 30 mmol/L (21-32); CREATININE 0.8 mg/dL (0.7-1.3); GLUCOSE,RANDOM 109 mg/dL (74-106); LIPASE 105 U/L (73-393); MAGNESIUM 2.3 mg/dL (1.8-2.4); POTASSIUM 4.1 mmol/L (3.5-5.1); SGOT/AST 14 U/L (15-37); SGPT/ALT 26 U/L (12-78); SODIUM 143 mmol/L (136-145)
[2016-10-31 21:10] LABS: ALK PHOS 67 U/L (45-117); BILIRUBIN,TOTAL 0.8 mg/dL (0.2-1.0)
[2016-10-31 21:59] LABS: ACETONE SERUM NEGATIVE (NEGATIVE)
== END 2016-11-01 00:31 | disposition home or self-care (01) ==
LOC: JER 18:56
PROC: 3E0337Z Introduction of Electrolytic and Water Balance Substance into Peripheral Vein, Percutaneous Approach (ICD-10-PCS; principal; 2016-10-31)
DX: R19.8 Other specified symptoms and signs involving the digestive system and abdomen (principal); R73.03 Prediabetes; G62.89 Other specified polyneuropathies; I10 Essential (primary) hypertension; E78.5 Hyperlipidemia, unspecified; Z85.46 Personal history of malignant neoplasm of prostate
CPT/HCPCS: 36415; 80053; 82009; 82150; 83690; 83735; 85025; 99283-25; J7030

== ENCOUNTER 2019-02-15 10:19 | Observation (INO) | payer OTHER, MEDICARE ==
[2019-02-15 10:34] VITALS: BMI 32.5
--- NOTE | 2019-02-15 11:09 | PDOC ---
History of Present Illness - General Chief Complaint: Chest Pain Stated Complaint: CHEST AND BACK PAIN Time Seen by Provider: 02/15/19 11:08 Past History - Past Medical History Allergies/Adverse Reactions: Allergies Allergy/AdvReac Type Severity Reaction Status Date / Time No Known Allergies Allergy Verified 02/15/19 10:30 Home Medications: Ambulatory Orders Pravastatin Sodium 20 mg PO DAILY 08/04/16 Ramipril 2.5 mg PO DAILY 08/04/16 Anemia: No Asthma: No Cancer: Yes (PROSTATE) Cardiac Disorders: No CVA: No COPD: No CHF: No Dementia: No Diabetes: Yes (Borderline) GI Disorders: Yes (COLON POLYPS) Disorders: No HTN: Yes Hypercholesterolemia: Yes Liver Disease: No Seizures: No Thyroid Disease: No - Surgical History Abdominal Surgery: No Appendectomy: No Cardiac Surgery: No Cholecystectomy: No Lung Surgery: No Neurologic Surgery: No Orthopedic Surgery: Yes (Bilaterl wrist, HIP FRACTURE 2011) - Immunization History Immunization Up to Date: Yes - Psycho Social/Smoking Cessation Hx Smoking Status: No Smoking History: Never smoked Have you smoked in the past 12 months: No Number of Cigarettes Smoked Daily: 0 If you are a former smoker, when did you quit?: 1984 Information on smoking cessation initiated: No Hx Alcohol Use: No Drug/Substance Use Hx: No Substance Use Type: None Hx Substance Use Treatment: No *Physical Exam - Vital Signs Last Vital Signs Temp Pulse Resp BP Pulse Ox 97.7 F 104 H 19 116/79 92 L 02/15/19 10:29 02/15/19 10:29 02/15/19 10:29 02/15/19 10:29 02/15/19 10:31 Heart Score/ECG Review - History History: Slightly suspicious - Electrocardiogram EKG: Normal - Age Age: >/= 65 - Risk Factors Risk Factors Heart Score: Yes Hx Hypercholesterolemia, Yes Hx Hypertension, Yes Hx Diabetes Based on the list above the patient has:: >/=3 risk factors or Hx atherosclerotic disease - Troponin Troponin: </= normal limit - Score Heart Score - Total: 4 ED Treatment Course - LABORATORY CBC & Chemistry Diagram: 02/15/19 11:55 02/15/19 11:55 Medical Decision Making - Medical Decision Making HPI: 78yo M with PMH of HTN, HLD, pre-diabetes, obesity, peripheral neuropathy, prostate CA in remission presenting with chest pain. Aide is at the bedside providing collateral history. Patient states the pain started this morning while he was breathing. The pain is described as "sharp," rated 5/10, and worsens when he takes a deep breath. Had taken tylenol in the morning and was given alleve by EMS. Patient has had a swollen and painful left arm since Saturday. He has been bed bound for the past four months after he suffered multiple falls. 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 Was at [facility] last week and was discharged with antibitoics for UTI. He does nto know what medication he is on but has not yet finished the course. No fevers or chills. PCP: Dr. Ceron ROS: Constitutional: no fever, no chills HEENT: no throat pain, no vision changes Cardiovascular: +chest pain, no palpitations Respiratory: no cough, no shortness of breath Gastrointestinal: no abdominal pain, no nausea Genitourinary: no dysuria, no hematuria Musculoskeletal: no myalgia, +L. arm swelling Skin: no rash, no itching Neurologic: no headache, +weakness PE: General: Awake, alert, and fully oriented, in no acute distress Head: No signs of trauma Eyes: EOMI, sclera anicteric ENT: Moist mucus membranes Neck: Normal ROM, supple Lungs: Lungs clear, Normal breath sounds Cardio: Regular rhythm, S1 and S2 present Abdomen: Soft, nontender. No guarding, no rebound, no masses Extremities: Normal range of motion, Distal pulses present. L. arm is edematous and tender to palpation SKIN: Warm, Dry, normal turgor Neurologic: Cranial nerves II through XII grossly intact. Normal speech ED Course/MDM: DDX including but not limited to anemia, metabolic derangement, ACS, PE, UTI Labs, EKG, CXR Duplex of LUE EKG: rate 102, QTc 430, Sinus tachycardia, 1st degree av block 02/15/19 11:08 CBC WBC 15.2 K/mm3 (4.0-10.0) H 02/15/19 11:55 RBC 4.69 M/mm3 (4.00-5.60) 02/15/19 11:55 Hgb 13.9 GM/dL (11.7-16.9) 02/15/19 11:55 Hct 42.1 % (35.4-49) 02/15/19 11:55 MCV 89.8 fl (80-96) 02/15/19 11:55 MCH 29.7 pg (25.7-33.7) 02/15/19 11:55 MCHC 33.1 g/dl (32.0-35.9) 02/15/19 11:55 RDW 14.8 % (11.9-15.9) 02/15/19 11:55 Absolute Neuts (auto) 12.3 K/mm3 (1.5-8.0) H 02/15/19 11:55 Neutrophils % 81.1 % (42.8-82.8) D 02/15/19 11:55 Lymphocytes % 10.0 % (8-40) D 02/15/19 11:55 Monocytes % 7.8 % (3.8-10.2) 02/15/19 11:55 Eosinophils % 0.5 % (0-4.5) 02/15/19 11:55 Basophils % 0.6 % (0-2.0) 02/15/19 11:55 Nucleated RBC % 0 % (0-0) 02/15/19 11:55 Leukocytosis CMP Sodium 135 mmol/L (136-145) L 02/15/19 11:55 Potassium 4.2 mmol/L (3.5-5.1) 02/15/19 11:55 Chloride 100 mmol/L (98-107) 02/15/19 11:55 Carbon Dioxide 26 mmol/L (21-32) 02/15/19 11:55 Anion Gap 9 MMOL/L (8-16) 02/15/19 11:55 BUN 13.8 mg/dL (7-18) 02/15/19 11:55 Creatinine 0.8 mg/dL (0.55-1.3) 02/15/19 11:55 Est GFR (CKD-EPI)AfAm 98.47 02/15/19 11:55 Est GFR (CKD-EPI)NonAf 84.96 02/15/19 11:55 Random Glucose 198 mg/dL (74-106) H 02/15/19 11:55 Calcium 8.9 mg/dL (8.5-10.1) 02/15/19 11:55 Total Bilirubin 0.4 mg/dL (0.2-1) 02/15/19 11:55 AST 21 U/L (15-37) 02/15/19 11:55 ALT 30 U/L (13-61) 02/15/19 11:55 Alkaline Phosphatase 143 U/L (45-117) H 02/15/19 11:55 Creatine Kinase 56 U/L (26-308) 02/15/19 11:55 Troponin I < 0.02 ng/ml (0.00-0.05) 02/15/19 11:55 B-Natriuretic Peptide 47.0 pg/ml (5-450) 02/15/19 11:55 Total Protein 6.9 g/dl (6.4-8.2) 02/15/19 11:55 Albumin 3.3 g/dl (3.4-5.0) L 02/15/19 11:55 Electrolytes unremarkable Normal Cr BNP normal Tpn undetectable CXR as read by radiology: "ADDENDUM ADDENDUM #1 Correction: There could be some minimal atelectatic change at the left base. ORIGINAL REPORT Chest: Chest pain A single view of the chest reveals an elevated right hemidiaphragm with unfolded aorta, fullness of the left hilum but clear lung matthews and no sign of infiltrate or failure. The bones and soft tissues are intact. Since 08/23/2016 there is a slightly more prominent aorta but smaller heart. This could be projectional. Correlation recommended " D-dimer 1000, elevated Decision made to order Chest CTA to rule out PE 02/15/19 13:36 CTA chest as read by radiology: "No evidence of pulmonary embolus or aorticaneurysm or dissection Normal three vessel aortic arch configuration present. Heart size is normal and without pericardial effusion. Marked elevation of right hemidiaphragm extending up to the level of the right hilar region associated with atelectasis The rest of the lung matthews are clear of consolidation, effusion or pneumothorax. No endobronchial lesions are seen. No pathologic mediastinal adenopathy. Bony thoracic cage and spine are intact. Small hiatal hernia. IMPRESSION No CT evidence of pulmonary embolus or aortic dissection. No acute chest findings." Xray of L. hand/wrist: "3 views of the left hand and wrist have been submitted. There is loss of bone density with wrist degenerative changes and possible old trauma involving the distal radius, navicular bone and lunate. An acute process is not seen. There is no sign of a foreign body or soft tissue air. Gross soft tissue swelling is not appreciated. If symptoms persist, further imaging and orthopedic consultation may be of help. " Plan for admission for r/o AR 02/15/19 15:54 Discusssed case with JODI Ramos who accepted patient for telemetry observation under Dr. Constantino 02/15/19 17:17 Discharge - Discharge Information Problems reviewed: Yes Clinical Impression/Diagnosis: Chest pain Condition: Guarded - Admission Yes - Follow up/Referral - Patient Discharge Instructions - Post Discharge Activity
--- NOTE | 2019-02-15 11:11 | PDOC ---
Attending Attestation - Resident Resident Name: Danyell Byrnes - ED Attending Attestation I have performed the following: I have examined & evaluated the patient, The case was reviewed & discussed with the resident, I agree w/resident's findings & plan, Exceptions are as noted - HPI HPI: 02/15/19 11:11 78y M hx of predm, peripherl neuropathy, htn, hl, prosate ca presents to the ED for evluatio of multiple complaints - per aid, the pt had a recent UTI dx at [facility], but has been complaning of atraumatic increased L hand/wrist pain and swelling for the past week, also endorses complaint o fpleuritic R chest pain and sob for the past few days without associated fever/chlls, cough, hemoptysis , leg swelling. Pt denies any n/v, abd pain. Pt has chronic back pain that has been worsening for the past few months per aide where i is difficul to even turn the patient. per aide, pt is non ambulatory ON arrival, the pts vitals noted for hypoxia - pt was put on NC Allergies: NKDA Social History: No alcohol, tobacco, or drug use reported. Past Surgical History: bilateral wrist repair, hip fx sx PCP: Dr. Omar Lovett - Physicial Exam PE: 02/15/19 12:35 GENERAL: The patient is awake, alert, and fully oriented, Nontoxic - in no acute distress. HEAD: Normocephalic, atraumatic. EYES: extraocular movements intact, sclera anicteric, conjunctiva clear. ENT: Normal voice, Moist mucous membranes. NECK: Normal range of motion, supple LUNGS: cta b/l HEART: Regular rate and rhythm, ABDOMEN: Soft, nontender, No guarding, no rebound. No CVA tenderness EXTREMITIES: LE - edema of R hand/wris with diffuse tenderness on palpation and passive/active ROM NEUROLOGICAL: No facial assymetry, Normal speech - Medical Decision Making 02/15/19 13:12 RUE swelling - ?dvt vs fx will obtain us and xray cough/sob - poible PE vs pna vs acs will obtain cxr, labs, ekg will reasesss 02/15/19 15:[address] studny neg will admit for cp workup Heart Score/ECG Review - ECG Impressions Comment:: 02/15/19 13:15 Twelve-lead EKG was performed and reviewed by me. There is normal sinus rhythm with a normal rate. rate of 99 1s degree AV block low voltage qrs
[2019-02-15] MEDS ORDERED: ACETAMINOPHEN 1000 MG/100 ML VIAL (NON FORMULARY) IVPB ONE (11:32)
[2019-02-15 12:22] LABS: BASO % 0.6 % (0-2.0); EOS % 0.5 % (0-4.5); HEMATOCRIT 42.1 % (35.4-49); HEMOGLOBIN 13.9 GM/dL (11.7-16.9); MCH 29.7 pg (25.7-33.7); MCHC 33.1 g/dl (32.0-35.9); MEAN CELL VOLUME 89.8 fl (80-96); MEAN PLT VOLUME 7.5 fl (7.5-11.1); MONO % 7.8 % (3.8-10.2); NEUT % 81.1 % (42.8-82.8); PLATELET COUNT 303 K/MM3 (134-434); RBC 4.69 M/mm3 (4.00-5.60); RDW 14.8 % (11.9-15.9); WHITE BLOOD COUNT 15.2 K/mm3 (4.0-10.0)
[2019-02-15 12:23] LABS: INR 1.27 (0.83-1.09)
[2019-02-15] MEDS ORDERED: ACETAMINOPHEN INJECTION 100 ML IVPB ONE (12:25)
[2019-02-15 12:57] LABS: ALBUMIN 3.3 g/dl (3.4-5.0); ALK PHOS 143 U/L (45-117); ANION GAP 9 MMOL/L (8-16); BILIRUBIN,TOTAL 0.4 mg/dL (0.2-1); BLOOD UREA NITROGEN 13.8 mg/dL (7-18); CALCIUM 8.9 mg/dL (8.5-10.1); CHLORIDE 100 mmol/L (98-107); CO2 26 mmol/L (21-32); CREATININE 0.8 mg/dL (0.55-1.3); GLUCOSE,RANDOM 198 mg/dL (74-106); POTASSIUM 4.2 mmol/L (3.5-5.1); SGOT/AST 21 U/L (15-37); SGPT/ALT 30 U/L (13-61); SODIUM 135 mmol/L (136-145); TOT PROT 6.9 g/dl (6.4-8.2)
[2019-02-15 13:47] LABS: PLATELET ESTIMATE ADEQUATE
[2019-02-15 15:13] LABS: URINE APPEARANCE Clear; URINE BILIRUBIN Negative (NEGATIVE); URINE COLOR Yellow; URINE GLUCOSE (UA) Negative (NEGATIVE); URINE KETONE Negative (NEGATIVE); URINE LEUK ESTERASE Trace (NEGATIVE); URINE NITRITE Negative (NEGATIVE); URINE PROTEIN Negative (NEGATIVE); URINE UROBILINOGEN 0.2 mg/dL (0.2-1.0)
--- NOTE | 2019-02-15 18:27 | HP ---
CHIEF COMPLAINT: chest pain, left hand pain PCP:Dr. 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 He is non ambulatory at baseline and uses a WC to get around. He comes to the ED today with c/of chest pain. His past medical history includes hypertension, HLD (pre -diabetes?), obesity, peripheral neuropathy with lower extremity wounds, prostate cancer that is reported to be in remission. Patient comes to the ED with c/o of chest pain that he describes as sharp and not radiating associated with shortness of breath. On exam, he was unable to take in a deep breath secondary to pain. In the ED he was ruled out for a PE with CTA. He also reports a swollen left arm that started on Saturday but denies trauma. Imaging done on the ED shows no acute fracture, but old trauma seen. Patient was also recently treated at [facility] for UTI and as discharged on PO antibiotics. He does not recall if he completed the antibiotics. No fevers or chills. Imaging: In the Ed his D dimer was elevated @ 1000, chest CT without evidence of PE or dissection with marked elevation of right hemidiaphragm extending up to the level of the right hilar region associated with atelectasis The rest of the lung matthews are clear of consolidation, effusion or pneumothorax. No endobronchial lesions are seen. No pathologic mediastinal adenopathy. Bony thoracic cage and spine are intact. Small hiatal hernia. Xray of left hand/wrist: loss of bone density with wrist degenerative changes and possible old trauma. no acute process. ER course was notable for: (1) WBC 15.2, with tachycardia (2) negative for PE (3) negative troponin (4) EKG: rate 102, QTc 430, Sinus tachycardia, 1st degree av block PAST MEDICAL/SURGICAL HISTORY: hypertension, HLD (pre-diabetes?), obesity, peripheral neuropathy with lower extremity wounds, prostate cancer that is reported to be in remission. Social History: Smoking: denies Alcohol: denies Drugs: denies Allergies No Known Allergies Allergy (Verified 02/15/19 10:30) HOME MEDICATIONS: Home Medications Medication Instructions Recorded Pravastatin Sodium 20 mg PO DAILY 08/04/16 Ramipril 2.5 mg PO DAILY 08/04/16 PHYSICAL EXAMINATION Vital Signs - 24 hr 02/15/19 02/15/19 02/15/19 10:29 10:31 13:48 Temperature 97.7 F Pulse Rate 104 H Pulse Rate [ Apical] Respiratory 19 18 Rate Blood Pressure 116/79 Blood Pressure [Right Arm] O2 Sat by Pulse 92 L 92 L 96 Oximetry (%) 02/15/19 15:27 Temperature 97.9 F Pulse Rate Pulse Rate [ 92 H Apical] Respiratory 17 Rate Blood Pressure Blood Pressure 128/82 [Right Arm] O2 Sat by Pulse 96 Oximetry (%) GENERAL: Awake, alert, and fully oriented, in no acute distress HEAD: Normal with no signs of trauma. EYES: Pupils equal, round and reactive to light, extraocular movements intact, sclera anicteric, conjunctiva clear. No lid lag. EARS, NOSE, THROAT: Ears normal, nares patent, oropharynx clear without exudates. Moist mucous membranes. NECK: Normal range of motion, supple without lymphadenopathy, JVD, or masses. LUNGS: Breath sounds equal, clear to auscultation bilaterally. No wheezes HEART: Regular rate and rhythm ABDOMEN: Soft, nontender, not distended, normoactive bowel sounds MUSCULOSKELETAL: Normal range of motion at all joints. No bony deformities or tenderness. No CVA tenderness. UPPER EXTREMITIES: left hand edema, pain, no fracture on imaging. LOWER EXTREMITIES: ulcerations on both shins, wrapped in jett with sero sang drainage. hx of pvd. NEUROLOGICAL: Normal speech. WC bound PSYCHIATRIC: flat affect Laboratory Results - last 24 hr 02/15/19 02/15/19 02/15/19 11:00 11:55 11:55 WBC 15.2 H RBC 4.69 Hgb 13.9 Hct 42.1 MCV 89.8 MCH 29.7 MCHC 33.1 RDW 14.8 Plt Count 303 D MPV 7.5 Absolute Neuts (auto) 12.3 H Neutrophils % 81.1 D Lymphocytes % 10.0 D Monocytes % 7.8 Eosinophils % 0.5 Basophils % 0.6 Nucleated RBC % 0 Platelet Estimate Adequate Platelet Comment Smear reviewed PT with INR INR D-Dimer 1000 H Sodium 135 L Potassium 4.2 Chloride 100 Carbon Dioxide 26 Anion Gap 9 BUN 13.8 Creatinine 0.8 Est GFR (CKD-EPI)AfAm 98.47 Est GFR (CKD-EPI)NonAf 84.96 Random Glucose 198 H Calcium 8.9 Total Bilirubin 0.4 AST 21 ALT 30 Alkaline Phosphatase 143 H Creatine Kinase 56 Troponin I < 0.02 B-Natriuretic Peptide Total Protein 6.9 Albumin 3.3 L Urine Color Urine Appearance Urine pH Ur Specific [place] Urine Protein Urine Glucose (UA) Urine Ketones Urine Blood Urine Nitrite Urine Bilirubin Urine Urobilinogen Ur Leukocyte Esterase 02/15/19 02/15/19 02/15/19 11:55 11:55 15:00 WBC RBC Hgb Hct MCV MCH MCHC RDW Plt Count MPV Absolute Neuts (auto) Neutrophils % Lymphocytes % Monocytes % Eosinophils % Basophils % Nucleated RBC % Platelet Estimate Platelet Comment PT with INR 15.00 H INR 1.27 H D-Dimer Sodium Potassium Chloride Carbon Dioxide Anion Gap BUN Creatinine Est GFR (CKD-EPI)AfAm Est GFR (CKD-EPI)NonAf Random Glucose Calcium Total Bilirubin AST ALT Alkaline Phosphatase Creatine Kinase Troponin I B-Natriuretic Peptide 47.0 Total Protein Albumin Urine Color Yellow Urine Appearance Clear Urine pH 6.0 Ur Specific [place] <= 1.005 L Urine Protein Negative Urine Glucose (UA) Negative Urine Ketones Negative Urine Blood Negative Urine Nitrite Negative Urine Bilirubin Negative Urine Urobilinogen 0.2 Ur Leukocyte Esterase Trace ASSESSMENT/PLAN: Family Medical History Family History: Unable to Obtain Problem List - Problem (1) Chest pain Assessment/Plan: trend troponins monitor on tele. cardiology consulted Code(s): R07.9 - CHEST PAIN, UNSPECIFIED (2) SIRS (systemic inflammatory response syndrome) Assessment/Plan: elevated wbc on admission, with mild tachycardia will order lactic acid blood and urine cultures pending. Code(s): R65.10 - SIRS OF NON-INFECTIOUS ORIGIN W/O ACUTE ORGAN DYSFUNCTION (3) Diabetes Assessment/Plan: hmg1c in a.m. novolog ordered Code(s): E11.9 - TYPE 2 DIABETES MELLITUS WITHOUT COMPLICATIONS (4) HTN (hypertension) Assessment/Plan: continue home meds, bp stable. Code(s): I10 - ESSENTIAL (PRIMARY) HYPERTENSION (5) UTI (urinary tract infection) Assessment/Plan: UA without signs of UTi. urine cultures pending. Code(s): N39.0 - URINARY TRACT INFECTION, SITE NOT SPECIFIED (6) Leukocytosis Assessment/Plan: blood/urine cultures pending. afebrile will hold off on antibotics until source identified. Code(s): D72.829 - ELEVATED WHITE BLOOD CELL COUNT, UNSPECIFIED
[2019-02-15] MEDS ORDERED: FLU VACCINE QUAD 60 MCG/0.5 ML (MDV 19-20) IM ONE (19:07)
[2019-02-15] MEDS ORDERED: PNEUMOC 13-VAL CONJ-DIP CRM/PF 0.5 ML DISP.SYRIN IM ONE (19:07)
[2019-02-15] MEDS: ACETAMINOPHEN 325 MG TABLET (FP) PO PRN (21:08)
[2019-02-15] MEDS: ATORVASTATIN CA 10 MG TABLET (FP) PO SCH (21:09)
[2019-02-15] MEDS: HEPARIN NA (PORCINE) 5,000 UNITS/ML 1ML VIAL SQ SCH (21:10)
[2019-02-15] MEDS: INSULIN SLIDING SCALE (NOVOLOG) 1 VIAL SQ SCH (21:10)
[2019-02-16] MEDS: ACETAMINOPHEN 325 MG TABLET (FP) PO PRN ×2 (05:54→18:54)
[2019-02-16] MEDS: INSULIN SLIDING SCALE (NOVOLOG) 1 VIAL SQ SCH ×4 (06:05→22:17)
[2019-02-16 07:10] LABS: BASO % 0.6 % (0-2.0); EOS % 1.1 % (0-4.5); HEMOGLOBIN 14.1 GM/dL (11.7-16.9); LYMPH % 15.6 % (8-40); MCHC 34.4 g/dl (32.0-35.9); MEAN CELL VOLUME 90.2 fl (80-96); MEAN PLT VOLUME 7.2 fl (7.5-11.1); MONO % 8.3 % (3.8-10.2); NEUT % 74.4 % (42.8-82.8); PLATELET COUNT 347 K/MM3 (134-434); RBC 4.54 M/mm3 (4.00-5.60); RDW 14.8 % (11.9-15.9); WHITE BLOOD COUNT 7.8 K/mm3 (4.0-10.0)
--- NOTE | 2019-02-16 07:19 | PN ---
Progress Note, Physician Chief Complaint: No complaint of further chest pain, c/o left hand tenderness and swelling History of Present Illness: 78yo M with PMH of HTN, HLD, pre-diabetes, obesity, peripheral neuropathy, prostate CA in remission presenting with chest pain. 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 The pain was described as "sharp," rated 5/10, and worsens when he takes a deep breath. Patient has had a swollen and painful left arm since Saturday. He has been bed bound for the past four months after he suffered multiple falls. Was at [facility] last week and was discharged with antibiotics for UTI. No fevers or chills reported. - Current Medication List Current Medications: Active Medications Acetaminophen (Tylenol -) 650 mg PO Q6H PRN PRN Reason: PAIN LEVEL 4 - 6 Last Admin: 02/16/19 05:54 Dose: 650 mg Atorvastatin Calcium (Lipitor -) 10 mg PO HS [facility]1983 Last Admin: 02/15/19 21:09 Dose: 10 mg Heparin Sodium (Porcine) (Heparin -) 5,000 unit SQ BID [facility], [facility]1983 Last Admin: 02/15/19 21:10 Dose: 5,000 unit Insulin Aspart (Novolog Vial Sliding Scale -) 1 vial SQ [facility]; Protocol Last Admin: 02/16/19 06:05 Dose: Not Given Ramipril (Altace -) 2.5 mg PO DAILY [facility] - Objective Vital Signs: Vital Signs Temperature 97.7 F 02/16/19 06:00 Pulse Rate 93 H 02/16/19 06:00 Respiratory Rate 18 02/16/19 06:00 Blood Pressure 122/85 02/16/19 06:00 O2 Sat by Pulse Oximetry (%) 96 02/15/19 22:29 Constitutional: Yes: Well Nourished, No Distress, Calm Eyes: Yes: WNL, Conjunctiva Clear HENT: Yes: WNL, Atraumatic, Normocephalic Neck: Yes: WNL, Supple, Trachea Midline Cardiovascular: Yes: WNL, Regular Rate and Rhythm Respiratory: Yes: Regular, CTA Bilaterally, Diminished (at bases) Gastrointestinal: Yes: WNL, Normal Bowel Sounds ...Rectal Exam: Yes: Deferred Genitourinary: Yes: WNL Breast(s): Yes: WNL Musculoskeletal: Yes: Muscle Weakness (generalized) Extremities: Yes: Delayed Capillary Refill (to left UE), Erythema (vascular ulcers noted to RLE/LLE) Edema: Yes Edema: LUE: 3+, RUE: 2+, LLE: 1+, RLE: 1+ Peripheral Pulses WNL: No Peripheral Pulses: Left Radial: 1+, Right Radial: 1+, Left Doralis Pedis: 2+, Right Dorsalis Pedis: 2+, Left Femoral: 2+, Right Femoral: 2+ Integumentary: Yes: Erythema (to left hand) Neurological: Yes: WNL, Alert, Oriented ...Motor Strength: WNL (generalized weakness), LUE, LLE, RUE, RLE Psychiatric: Yes: WNL Labs: INR, PTT INR 1.27 (0.83-1.09) H 02/15/19 11:55 - ....Imaging Cat Scan: Report Reviewed (CTA: Neg for PE) Ultrasound: Report Reviewed (no DVT to LUE including SCV/IJ) EKG: Image Reviewed (rate 102, QTc 430, Sinus tachycardia, 1st degree av block) Problem List - Problems (1) Prophylactic measure Assessment/Plan: FEN Fluids: adequate PO intake Electrolytes: monitor & replete as needed Nutrition: diabetic/lowfat/chol diet DVT moderate risk sq heparin Dispo Maintain as inpatient full code discharge planning to home with services in place Code(s): Z29.9 - ENCOUNTER FOR PROPHYLACTIC MEASURES, UNSPECIFIED (2) Wheelchair bound Assessment/Plan: wheelchair bound at home for last 4 months Physical therapy requested turn/reposition q 2h skin care Code(s): Z99.3 - DEPENDENCE ON WHEELCHAIR (3) HLD (hyperlipidemia) Assessment/Plan: c/w atorvastatin low fat/chol diet Code(s): E78.5 - HYPERLIPIDEMIA, UNSPECIFIED (4) Peripheral neuropathy Assessment/Plan: no home medications continue to monitor Code(s): G62.9 - POLYNEUROPATHY, UNSPECIFIED (5) Wound of lower extremity Assessment/Plan: DSD to LE BL, change daily monitor s/s infection Code(s): S81.809A - UNSPECIFIED OPEN WOUND, UNSPECIFIED LOWER LEG, INIT ENCNTR (6) Prostate CA Code(s): C61 - MALIGNANT NEOPLASM OF PROSTATE (7) Chest pain Assessment/Plan: serial trop negative EKG without ischemic changes TTE pending monitor on tele cardiology consultation requested Code(s): R07.9 - CHEST PAIN, UNSPECIFIED (8) HTN (hypertension) Assessment/Plan: normotensive c/w ramapril Code(s): I10 - ESSENTIAL (PRIMARY) HYPERTENSION (9) Swelling of left upper extremity Code(s): M79.89 - OTHER SPECIFIED SOFT TISSUE DISORDERS (10) Swelling of left hand Assessment/Plan: venous dopplers negative for DVT, Xray without acute pathology elevate on pillow no IV/blood draws on left side Code(s): M79.89 - OTHER SPECIFIED SOFT TISSUE DISORDERS Visit type - Emergency Visit Emergency Visit: Yes ED Registration Date: 02/15/19 Care time: The patient presented to the Emergency Department on the above date and was hospitalized for further evaluation of their emergent condition. - New Patient This patient is new to me today: Yes Date on this admission: 02/16/19 - Critical Care Critical Care patient: No - Discharge Referral Referred to [facility] Med P.C.: No
[2019-02-16 07:49] LABS: ALBUMIN 3.1 g/dl (3.4-5.0); ALK PHOS 129 U/L (45-117); ANION GAP 8 MMOL/L (8-16); BILIRUBIN,TOTAL 0.4 mg/dL (0.2-1); BLOOD UREA NITROGEN 13.9 mg/dL (7-18); CALCIUM 8.8 mg/dL (8.5-10.1); CHLORIDE 102 mmol/L (98-107); CHOLESTEROL 126 mg/dL (50-200); CO2 28 mmol/L (21-32); CREATININE 0.6 mg/dL (0.55-1.3); GLUCOSE,RANDOM 136 mg/dL (74-106); HDL CHOLESTEROL 34 mg/dL (40-60); LDL CHOLESTEROL (ONLY SJRH) 71 mg/dL (5-100); MAGNESIUM 2.4 mg/dL (1.8-2.4); POTASSIUM 4.5 mmol/L (3.5-5.1); SGOT/AST 18 U/L (15-37); SGPT/ALT 24 U/L (13-61); SODIUM 138 mmol/L (136-145); TOT PROT 6.8 g/dl (6.4-8.2); TRIGLYCERIDES 152 mg/dL (0-150)
[2019-02-16] MEDS ORDERED: PT OWN MED DRAWER 7, Y5N ONE (09:19)
[2019-02-16] MEDS: HEPARIN NA (PORCINE) 5,000 UNITS/ML 1ML VIAL SQ SCH ×2 (09:20→22:17)
[2019-02-16] MEDS: RAMIPRIL 2.5 MG CAPSULE (FP) PO SCH (09:22)
--- NOTE | 2019-02-16 10:28 | EKG ---
Test Reason : Blood Pressure : / mmHG Vent. Rate : 102 BPM Atrial Rate : 102 BPM P-R Int : 248 ms QRS Dur : 094 ms QT Int : 330 ms P-R-T Axes : 082 043 025 degrees QTc Int : 430 ms SINUS TACHYCARDIA WITH 1ST DEGREE A-V BLOCK OTHERWISE NORMAL ECG WHEN COMPARED WITH ECG OF 23-AUG-2016 18:10, VENT. RATE HAS INCREASED Confirmed by TEQUILA PORTER MD ([id number]) on 02/16/2019 10:27:52 AM Referred By: Confirmed By:TEQUILA PORTER MD
--- NOTE | 2019-02-16 14:10 | ECHO ---
Name: ELVIS RODRIGUEZ Exam:Adult Echocardiogram Study Date: 02/16/2019 08:40 AM Age: 78 yrs Reason For Study: shortness of breath Height: 69 in Weight: 220 lb BSA: 2.2 m2 MMode/2D Measurements & Calculations IVSd: 0.98 cm Ao root diam: 3.3 cm LVIDd: 3.9 cm LA dimension: 2.4 cm LVIDs: 2.4 cm LVPWd: 1.0 cm LVPWs: 0.97 cm EDV(Teich): 66.5 ml ESV(Teich): 20.0 ml Doppler Measurements & Calculations MV E max sabina: 55.8 cm/sec Ao V2 max: 128.2 cm/sec MV A max sabina: 86.9 cm/sec Ao max P.6 mmHg MV E/A: 0.64 Ao V2 mean: 83.0 cm/sec MV dec time: 0.11 sec Ao mean P.3 mmHg Ao V2 VTI: 20.7 cm LV V1 max P.9 mmHg TR max sabina: 216.1 cm/sec LV V1 mean P.0 mmHg TR max P.7 mmHg LV V1 max: 111.1 cm/sec LV V1 mean: 81.7 cm/sec LV V1 VTI: 22.2 cm PA V2 max: 96.8 cm/sec Med Peak E' Sabina: 3.9 cm/sec PA max P.7 mmHg Med E/e': 14.4 Lat Peak E' Sabina: 6.0 cm/sec Lat E/e': 9.3 Procedure A complete two-dimensional transthoracic echocardiogram was performed (2D, M-mode, Doppler and color flow Doppler). Left Ventricle The left ventricle is normal in size. Left ventricular systolic function is normal. Ejection Fraction = >70%. Grade I diastolic dysfunction, (abnormal relaxation pattern). Ratio E/E'= 14. No regional wall motion abnormalities noted. Right Ventricle The right ventricle is normal size. The right ventricular systolic function is normal. RV systolic TD I is 15 cm/s. Atria The left atrial size is normal. Right atrial size is normal. Mitral Valve There is mild mitral annular calcification. There is mild mitral regurgitation. Tricuspid Valve The tricuspid valve is normal in structure and function. There is mild tricuspid regurgitation. Right ventricular systolic pressure is normal. Aortic Valve There is mild aortic sclerosis.;. Trace aortic regurgitation. Pulmonic Valve The pulmonic valve is not well visualized. Great Vessels The aortic root is normal size. Mildly dilated ascending thoracic aorta (3.6 cm). Pericardium/Pleura There is no pericardial effusion. Interpretation Summary The left ventricle is normal in size. Left ventricular systolic function is normal. No regional wall motion abnormalities noted. Ejection Fraction = >70%. Grade I diastolic dysfunction, (abnormal relaxation pattern). Ratio E/E'= 14 The right ventricular systolic function is normal. The left atrial size is normal. Right atrial size is normal. There is mild mitral annular calcification. There is mild mitral regurgitation. There is mild tricuspid regurgitation. Right ventricular systolic pressure is normal. There is mild aortic sclerosis. Trace aortic regurgitation. The aortic root is normal size. Mildly dilated ascending thoracic aorta (3.6 cm) There is no pericardial effusion. Kevin Harris MD 02/16/2019 02:09 PM
--- NOTE | 2019-02-16 15:37 | CON.CARD ---
Consult Consult Specialty:: Cardiology Reason for Consultation:: Sharp chest pain - History of Present Illness Chief Complaint: Chest pain History of Present Illness: This is a 78yo M with PMH of HTN, HLD, pre-diabetes, obesity, peripheral neuropathy, prostate CA in remission presenting with chest pain. The chest pain was sharp and worse with deep breathing. It almost completely resolved, but he still feels some chest pain with deep breathing. Of note, with left hand was swollen and tender. He has been bed bound for the past four months after he suffered multiple falls. . - Past Medical History Cardio/Vascular: Yes: HTN Renal/: Yes: Other (prostate cancer) Musculoskeletal: Yes: Other (neuropathy) Endocrine: Yes: Diabetes Mellitus (diet controlled) - Past Surgical History Past Surgical History: Yes: Joint Replacement (R hip) - Alcohol/Substance Use Hx Alcohol Use: No History of Substance Use: reports: None - Smoking History Smoking history: Never smoked Have you smoked in the past 12 months: No Aproximately how many cigarettes per day: 0 If you are a former smoker, when did you quit?: 1984 - Social History ADL: Family Assistance History of Recent Travel: No Home Medications - Allergies Allergies/Adverse Reactions: Allergies Allergy/AdvReac Type Severity Reaction Status Date / Time No Known Allergies Allergy Verified 02/15/19 10:30 - Home Medications Home Medications: Ambulatory Orders Pravastatin Sodium 20 mg PO DAILY 08/04/16 Ramipril 2.5 mg PO DAILY 08/04/16 Vital Signs: Vital Signs Temperature 99.1 F 02/16/19 14:00 Pulse Rate 104 H 02/16/19 14:00 Respiratory Rate 18 02/16/19 14:00 Blood Pressure 119/77 02/16/19 14:00 O2 Sat by Pulse Oximetry (%) 96 02/16/19 10:00 Constitutional: Yes: No Distress Eyes: Yes: WNL HENT: Yes: WNL Neck: Yes: WNL Respiratory: Yes: CTA Bilaterally Gastrointestinal: Yes: Soft Cardiovascular: Yes: Regular Rate and Rhythm Heart Sounds: Yes: S1, S2 Edema: LUE: 2+ (Hand) Neurological: Yes: Alert, Oriented - Other Data Labs, Other Data: CBC, BMP 02/16/19 05:38 02/16/19 05:38 INR, PTT INR 1.27 (0.83-1.09) H 02/15/19 11:55 Troponin, BNP 02/15/19 02/16/19 21:50 05:38 Troponin I Cancelled < 0.02 Troponin, BNP 02/15/19 02/16/19 21:50 05:38 Troponin I Cancelled < 0.02 Assessment/Plan 78yo M with PMH of HTN, HLD, pre-diabetes, obesity, peripheral neuropathy, prostate CA in remission presenting with chest pain. The chest pain was sharp and worse with deep breathing. It almost completely resolved, but he still feels some chest pain with deep breathing. Of note, with left hand was swollen and tender. He has been bed bound for the past four months after he suffered multiple falls. Chest Pain Atypical for CAD Trops neg x2 Echo 02/16/19 EF 70% Diastolic dysfunction Mild AI/MR/TR Normal PASP Normal RV function (No evidence for a PE) Continue lipitor/ramapril No need for stress testing at this time Left arm swelling Etiology is unclear May just be dependant edema from being bed bound and lying on his left side, consider further evaluation.
--- NOTE | 2019-02-16 16:11 | EKG ---
Test Reason : Blood Pressure : / mmHG Vent. Rate : 105 BPM Atrial Rate : 105 BPM P-R Int : 238 ms QRS Dur : 096 ms QT Int : 326 ms P-R-T Axes : 016 022 012 degrees QTc Int : 430 ms SINUS TACHYCARDIA WITH 1ST DEGREE A-V BLOCK LOW VOLTAGE QRS BORDERLINE ECG WHEN COMPARED WITH ECG OF 15-FEB-2019 12:13, NO SIGNIFICANT CHANGE WAS FOUND Confirmed by TEQUILA PORTER MD ([id number]) on 02/16/2019 4:10:57 PM Referred By: DAVID LEESO Confirmed By:TEQUILA PORTER MD
[2019-02-16] MEDS: ATORVASTATIN CA 10 MG TABLET (FP) PO SCH (22:17)
[2019-02-17 02:08] VITALS: PULSE 91
[2019-02-17] MEDS: INSULIN SLIDING SCALE (NOVOLOG) 1 VIAL SQ SCH (06:04)
[2019-02-17 06:07] VITALS: BP 144/71; TEMP 99.2
[2019-02-17 06:47] LABS: BASO % 0.9 % (0-2.0); EOS % 1.3 % (0-4.5); HEMATOCRIT 39.9 % (35.4-49); HEMOGLOBIN 13.6 GM/dL (11.7-16.9); LYMPH % 11.8 % (8-40); MCH 30.6 pg (25.7-33.7); MCHC 34.2 g/dl (32.0-35.9); MEAN CELL VOLUME 89.6 fl (80-96); PLATELET COUNT 370 K/MM3 (134-434); RBC 4.45 M/mm3 (4.00-5.60); RDW 14.6 % (11.9-15.9); WHITE BLOOD COUNT 9.2 K/mm3 (4.0-10.0)
[2019-02-17 07:10] LABS: ALBUMIN 3.1 g/dl (3.4-5.0); BILIRUBIN,TOTAL 0.7 mg/dL (0.2-1); BLOOD UREA NITROGEN 15.8 mg/dL (7-18); CALCIUM 9.2 mg/dL (8.5-10.1); CREATININE 0.7 mg/dL (0.55-1.3); MAGNESIUM 2.3 mg/dL (1.8-2.4); POTASSIUM 4.4 mmol/L (3.5-5.1); TOT PROT 6.9 g/dl (6.4-8.2)
--- NOTE | 2019-02-17 07:35 | DS ---
Physical Exam: SUBJECTIVE: Patient seen and examined OBJECTIVE: Vital Signs Period Temp Pulse Resp BP Sys/Espinosa Pulse Ox Last 24 Hr 97.8 F-99.6 F 91-105 18-20 114-144/71-84 94-96 PHYSICAL EXAM Constitutional: Yes: Well Nourished, No Distress, Calm Eyes: Yes: WNL, Conjunctiva Clear HENT: Yes: WNL, Atraumatic, Normocephalic Neck: Yes: WNL, Supple, Trachea Midline Cardiovascular: Yes: WNL, Regular Rate and Rhythm Respiratory: Yes: Regular, CTA Bilaterally, Diminished (at bases) Gastrointestinal: Yes: WNL, Normal Bowel Sounds ...Rectal Exam: Yes: Deferred Genitourinary: Yes: WNL Breast(s): Yes: WNL Musculoskeletal: Yes: Muscle Weakness (generalized) Extremities: Yes: Delayed Capillary Refill (to left UE), Erythema (vascular ulcers noted to RLE/LLE) Edema: Yes Edema: LUE: 3+, RUE: 2+, LLE: 1+, RLE: 1+. Yfn warp to left hand/wrist Peripheral Pulses WNL: No Peripheral Pulses: Left Radial: 1+, Right Radial: 1+, Left Doralis Pedis: 2+, Right Dorsalis Pedis: 2+, Left Femoral: 2+, Right Femoral: 2+ Integumentary: Yes: Erythema (to left hand) Neurological: Yes: WNL, Alert, Oriented ...Motor Strength: WNL (generalized weakness), LUE, LLE, RUE, RLE Psychiatric: Yes: WNL LABS Laboratory Results - last 24 hr 02/16/19 02/16/19 02/16/19 05:38 05:38 11:57 WBC RBC Hgb Hct MCV MCH MCHC RDW Plt Count MPV Absolute Neuts (auto) Neutrophils % Lymphocytes % Monocytes % Eosinophils % Basophils % Nucleated RBC % Sodium 138 Potassium 4.5 Chloride 102 Carbon Dioxide 28 Anion Gap 8 BUN 13.9 Creatinine 0.6 Est GFR (CKD-EPI)AfAm 110.83 Est GFR (CKD-EPI)NonAf 95.63 POC Glucometer 159 Random Glucose 136 H Hemoglobin A1c % 7.0 H Calcium 8.8 Magnesium 2.4 Total Bilirubin 0.4 AST 18 ALT 24 Alkaline Phosphatase 129 H Troponin I < 0.02 Total Protein 6.8 Albumin 3.1 L Triglycerides 152 H Cholesterol 126 Total LDL Cholesterol 71 HDL Cholesterol 34 L 02/16/19 02/16/19 02/17/19 17:06 22:13 05:36 WBC RBC Hgb Hct MCV MCH MCHC RDW Plt Count MPV Absolute Neuts (auto) Neutrophils % Lymphocytes % Monocytes % Eosinophils % Basophils % Nucleated RBC % Sodium Potassium Chloride Carbon Dioxide Anion Gap BUN Creatinine Est GFR (CKD-EPI)AfAm Est GFR (CKD-EPI)NonAf POC Glucometer 172 132 133 Random Glucose Hemoglobin A1c % Calcium Magnesium Total Bilirubin AST ALT Alkaline Phosphatase Troponin I Total Protein Albumin Triglycerides Cholesterol Total LDL Cholesterol HDL Cholesterol 02/17/19 02/17/19 05:44 05:44 WBC 9.2 RBC 4.45 Hgb 13.6 Hct 39.9 MCV 89.6 MCH 30.6 MCHC 34.2 RDW 14.6 Plt Count 370 MPV 7.0 L Absolute Neuts (auto) 7.1 Neutrophils % 78.0 Lymphocytes % 11.8 D Monocytes % 8.0 Eosinophils % 1.3 Basophils % 0.9 Nucleated RBC % 0 Sodium 138 Potassium 4.4 Chloride 103 Carbon Dioxide 28 Anion Gap 7 L BUN 15.8 Creatinine 0.7 Est GFR (CKD-EPI)AfAm 104.03 Est GFR (CKD-EPI)NonAf 89.76 POC Glucometer Random Glucose 144 H Hemoglobin A1c % Calcium 9.2 Magnesium 2.3 Total Bilirubin 0.7 AST 21 ALT 31 Alkaline Phosphatase 152 H Troponin I Total Protein 6.9 Albumin 3.1 L Triglycerides Cholesterol Total LDL Cholesterol HDL Cholesterol HOSPITAL COURSE: Date of Admission:02/15/19 Date of Discharge: 02/17/19 Minutes to complete discharge: 40 Discharge Summary Problems reviewed: Yes Reason For Visit: CHEST PAIN Current Active Problems Chest pain (Acute) HLD (hyperlipidemia) (Acute) Leukocytosis (Acute) Peripheral neuropathy (Acute) Prophylactic measure (Acute) Prostate CA (Acute) SIRS (systemic inflammatory response syndrome) (Acute) Swelling of left hand (Acute) Swelling of left upper extremity (Acute) Wheelchair bound (Acute) Wound of lower extremity (Acute) Hospital Course: Cat Scan: Report Reviewed (CTA: Neg for PE) Ultrasound: Report Reviewed (no DVT to LUE including SCV/IJ) EKG: Image Reviewed (rate 102, QTc 430, Sinus tachycardia, 1st degree av block) Problem List - Problems (1) Prophylactic measure Assessment/Plan: FEN Fluids: adequate PO intake Nutrition: c/w diabetic/lowfat/chol diet Dispo full code Medically cleared for discharge home with services in place Code(s): Z29.9 - ENCOUNTER FOR PROPHYLACTIC MEASURES, UNSPECIFIED (2) Wheelchair bound Assessment/Plan: wheelchair bound at home for last 4 months Physical therapy followed Code(s): Z99.3 - DEPENDENCE ON WHEELCHAIR (3) HLD (hyperlipidemia) Assessment/Plan: c/w atorvastatin low fat/chol diet Code(s): E78.5 - HYPERLIPIDEMIA, UNSPECIFIED (4) Peripheral neuropathy Assessment/Plan: no home medications Code(s): G62.9 - POLYNEUROPATHY, UNSPECIFIED (5) Wound of lower extremity Assessment/Plan: DSD to LE BL No s/s infection Code(s): S81.809A - UNSPECIFIED OPEN WOUND, UNSPECIFIED LOWER LEG, INIT ENCNTR (6) Prostate CA Code(s): C61 - MALIGNANT NEOPLASM OF PROSTATE (7) Chest pain Assessment/Plan: serial trop negative EKG without ischemic changes TTE EF 70%. Grade 1dystolic dysfunction. Mild MR, TR Seen by cardiology and no additional cardiac testing needed at this time Code(s): R07.9 - CHEST PAIN, UNSPECIFIED (8) HTN (hypertension) Assessment/Plan: normotensive c/w ramapril Code(s): I10 - ESSENTIAL (PRIMARY) HYPERTENSION (9) Swelling of left upper extremity Code(s): M79.89 - OTHER SPECIFIED SOFT TISSUE DISORDERS (10) Swelling of left hand Assessment/Plan: venous dopplers negative for DVT, Xray without acute pathology. Most likely deoendent edema. Keep elevated on pillow Maintain yfn wrap to decrease edema Code(s): M79.89 - OTHER SPECIFIED SOFT TISSUE DISORDERS Health Concerns: Maintain a heart healthy diet. At risk for falls and skin breakdown - Instructions Diet, Activity, Other Instructions: You were admitted for a cardiac workup. Disposition: VNS/HOME HEALTH CARE - Home Medications Comprehensive Discharge Medication List: Ambulatory Orders Pravastatin Sodium 20 mg PO DAILY 08/04/16 Ramipril 2.5 mg PO DAILY 08/04/16 Acetaminophen [Tylenol .Regular Strength -] 650 mg PO Q6H PRN tablet 02/17/19 Insulin Sliding Scale [Novolog Vial Sliding Scale -] 1 vial SQ ACHS units 02/17 Prescription Drug Monitoring Program (I-STOP) results: I-STOP reviewed and no issues identified Problem List - Problems (1) Prophylactic measure Code(s): Z29.9 - ENCOUNTER FOR PROPHYLACTIC MEASURES, UNSPECIFIED (2) Wheelchair bound Code(s): Z99.3 - DEPENDENCE ON WHEELCHAIR (3) HLD (hyperlipidemia) Code(s): E78.5 - HYPERLIPIDEMIA, UNSPECIFIED (4) Peripheral neuropathy Code(s): G62.9 - POLYNEUROPATHY, UNSPECIFIED (5) Wound of lower extremity Code(s): S81.809A - UNSPECIFIED OPEN WOUND, UNSPECIFIED LOWER LEG, INIT ENCNTR (6) Prostate CA Code(s): C61 - MALIGNANT NEOPLASM OF PROSTATE (7) Chest pain Code(s): R07.9 - CHEST PAIN, UNSPECIFIED (8) HTN (hypertension) Code(s): I10 - ESSENTIAL (PRIMARY) HYPERTENSION (9) Swelling of left upper extremity Code(s): M79.89 - OTHER SPECIFIED SOFT TISSUE DISORDERS (10) Swelling of left hand Code(s): M79.89 - OTHER SPECIFIED SOFT TISSUE DISORDERS This patient is new to me today: No Emergency Visit: Yes ED Registration Date: 02/15/19 Care time: The patient presented to the Emergency Department on the above date and was hospitalized for further evaluation of their emergent condition. Critical Care patient: No - Discharge Referral Referred to [facility] No
[2019-02-17] MEDS ORDERED: PT OWN MED DRAWER 7, Y5N ONE ×2 (08:31→09:56)
[2019-02-17] MEDS: RAMIPRIL 2.5 MG CAPSULE (FP) PO SCH (09:57)
[2019-02-17] MEDS: HEPARIN NA (PORCINE) 5,000 UNITS/ML 1ML VIAL SQ SCH (09:57)
== END 2019-02-17 10:36 | disposition home health service (06) ==
LOC: JER 10:19 → JERBED 16:43 → J4S 18:41
PROVIDERS: ADMIT Internal Medicine; ATTEND Nurse Practitioner Acute Care
PROC: 3E033NZ Introduction of Analgesics, Hypnotics, Sedatives into Peripheral Vein, Percutaneous Approach (ICD-10-PCS; principal; 2019-02-15)
PROC: 3E013GC Introduction of Other Therapeutic Substance into Subcutaneous Tissue, Percutaneous Approach (ICD-10-PCS; 2019-02-15)
PROC: 3E0234Z Introduction of Serum, Toxoid and Vaccine into Muscle, Percutaneous Approach (ICD-10-PCS; 2019-02-15)
PROC: 3E02340 Introduction of Influenza Vaccine into Muscle, Percutaneous Approach (ICD-10-PCS; 2019-02-15)
DX: R07.89 Other chest pain (principal); R65.10 Systemic inflammatory response syndrome (SIRS) of non-infectious origin without acute organ dysfunction; E11.9 Type 2 diabetes mellitus without complications; I10 Essential (primary) hypertension; E78.5 Hyperlipidemia, unspecified; R00.0 Tachycardia, unspecified; I44.0 Atrioventricular block, first degree; G62.9 Polyneuropathy, unspecified; D72.829 Elevated white blood cell count, unspecified; N39.0 Urinary tract infection, site not specified; Z29.8 Encounter for other specified prophylactic measures; Z99.3 Dependence on wheelchair; M79.89 Other specified soft tissue disorders; E66.9 Obesity, unspecified; Z68.32 Body mass index [BMI] 32.0-32.9, adult; Z85.46 Personal history of malignant neoplasm of prostate; Z74.09 Other reduced mobility; R53.1 Weakness; R60.0 Localized edema; S81.809A Unspecified open wound, unspecified lower leg, initial encounter; X58.XXXA Exposure to other specified factors, initial encounter; Y93.9 Activity, unspecified; Y92.9 Unspecified place or not applicable
CPT/HCPCS: 36415; 71045-TC-FY; 71275-TC; 73110-TC-LT-FY; 73130-TC-LT-FY; 80053; 80061; 81003; 82550; 82962; 83036; 83605; 83721; 83735; 83880; 84484; 85025; 85379; 85610; 87040; 87086; 90471; 90670; 93005; 93010; 93306-TC; 93971; 96372; 96374; 97162-GP; 99284-25; G0378; J0131; J1644; Q2036

== ENCOUNTER 2019-06-02 11:29 | Inpatient (IN) | payer OTHER, MEDICARE ==
--- NOTE | 2019-06-02 12:31 | PDOC ---
History of Present Illness - General Chief Complaint: Constipation Stated Complaint: CONSTIPATION Time Seen by Provider: 06/02/19 12:30 History Source: Patient Exam Limitations: No Limitations - History of Present Illness Initial Comments: 06/02/19 12:30 PCP: Dr. Ceron (last seen Mar 21, 2016) Sources: Patient (poor historian), 's [employer], HPI: 78yo M with PMH of HTN, HLD, pre-diabetes, obesity, peripheral neuropathy, chronic intermittent constipation, prostate CA in remission presenting with constipation for 11 days per his wifes [employer]. Denies abdominal pain / distention, diarrhea, blood, pain with straining, dysuria, weight loss, loss of appetite ( had three full meals yesterday), no nausea, no vomiting. 's [employer] gave him Dulcola and a stool softener every day for the past week. Previously, constipation resolved after laxative / softeners after 3-4 days. No intra- abdominal surgeries. Diet consists of mostly pasta. Denies chest pain, fevers, chills, recent illness. Of note, patient states that he doesn't know when his last BM was and that his 's [employer] keeps track. [employer] states that his services lapsed and he still needs assistance which she has been providing. No one is clear on who his new PCP group is. He reports that he has had falls in the past, has used a wheelchair before, has been through rehab. States that his and [employer] want him to stay in bed and that is why he doesn't ambulate. Noticeable deficits in memory - doesn't know primary, last BM, year recalled as 2001, unsure if he is 68 or 78, known his year. Does not recall any CVA/TIA in the past, no arrhythmias. All: NKDA Meds: Per chart PMH: As above PSH: Denies abdominal surgery, R hip surgery Past History - Travel Traveled outside of the country in the last 30 days: No Close contact w/someone who was outside of country & ill: No - Past Medical History Allergies/Adverse Reactions: Allergies Allergy/AdvReac Type Severity Reaction Status Date / Time No Known Allergies Allergy Verified 02/15/19 10:30 Home Medications: Ambulatory Orders Pravastatin Sodium 20 mg PO DAILY 08/04/16 Ramipril 2.5 mg PO DAILY 08/04/16 Acetaminophen [Tylenol .Regular Strength -] 650 mg PO Q6H PRN tablet 02/17/19 Insulin Sliding Scale [Novolog Vial Sliding Scale -] 1 vial SQ ACHS units 02/17 Anemia: No Asthma: No Cancer: Yes (PROSTATE) Cardiac Disorders: No CVA: No COPD: No CHF: No Dementia: No Diabetes: Yes GI Disorders: Yes (COLON POLYPS) Disorders: No HTN: Yes Hypercholesterolemia: Yes Liver Disease: No Seizures: No Thyroid Disease: No - Surgical History Abdominal Surgery: No Appendectomy: No Cardiac Surgery: No Cholecystectomy: No Lung Surgery: No Neurologic Surgery: No Orthopedic Surgery: Yes (Bilaterl wrist, HIP FRACTURE 2011) - Immunization History Immunization Up to Date: Yes - Psycho Social/Smoking Cessation Hx Smoking Status: No Smoking History: Former smoker Have you smoked in the past 12 months: No Number of Cigarettes Smoked Daily: 0 If you are a former smoker, when did you quit?: 1997 Information on smoking cessation initiated: No Hx Alcohol Use: No Drug/Substance Use Hx: No Substance Use Type: None Hx Substance Use Treatment: No Review of Systems - Review of Systems Able to Perform ROS?: Yes Is the patient limited Slovenian proficient: Yes Constitutional: Yes: Weakness. No: Chills, Fever, Loss of Appetite, Malaise, Night Sweats, Unexplained wgt Loss HEENTM: No: Recent change in vision, Nose Congestion, Throat Pain Respiratory: No: Cough, Orthopnea, Shortness of Breath Cardiac (ROS): No: Chest Pain, Irregular Heart Rate, Lightheadedness, Palpitations, Syncope, Chest Tightness ABD/GI: Yes: Constipated. No: Blood Streaked Bowels, Diarrhea, Nausea, Poor Appetite, Poor Fluid Intake, Rectal Bleeding, Vomiting, Tarry Stools : No: Burning, Dysuria, Frequency Musculoskeletal: Yes: Joint Pain (hands bilaterally), Joint Swelling, Joint Stiffness. No: Back Pain, Muscle Pain, Muscle Weakness Integumentary: No: Dryness, Erythema, Pruritus, Rash Neurological: Yes: Tremors (bilateral hands. ), Weakness. No: Headache, Numbness, Tingling Psychiatric: No: Change in Appetite Endocrine: No: Increased Thirst, Increased Urine Hematologic/Lymphatic: No: Anemia, Blood Clots, Easy Bleeding All Other Systems: Reviewed and Negative *Physical Exam - Vital Signs Last Vital Signs Temp Pulse Resp BP Pulse Ox 97.7 F 99 H 20 110/75 98 06/02/19 11:46 06/02/19 11:46 06/02/19 11:46 06/02/19 11:46 06/02/19 11:46 - Physical Exam 06/02/19 12:33 Vitals reviewed, borderline tachycardia, otherwise AFVSS GEN: Appears stated age, NAD, laying in bed. AAOx2 (Year 2001). HEENT: NCAT, EOMI, PERRL. Sclera anicteric, non-injected. No facial asymmetry. Moist mucous membranes. Normal voice. Trachea midline. CV: RRR, S1/S2, no murmurs / rubs / gallops appreciated. LUNG: CTAB, normal work of breathing. No wheezes, rales, rhonchi. No cough. Speaking full sentences. GI: Soft, NTND, +BS, no guarding, no rebound. No masses. No scars or rashes. EXTREMITIES: 2+ distal pulses. No LE edema. No obvious deformities of all extremities. SKIN: Warm, dry, no rashes appreciated, non-jaundiced. PSYCH: Normal mood and affect. Cooperative and appropriate. NEURO: CN grossly intact. Lifts all extremities, normal sensation to light touch. General weakness. RECTAL: Normal tone, external hemorrhoids, soft stool in vault no blood / melena BACK: Sacral ulcer or indeterminate level (covered in ointment), shallow R hip ulceration also covered, R hip surgical scar ED Treatment Course - LABORATORY CBC & Chemistry Diagram: 06/02/19 14:30 06/02/19 14:30 Medical Decision Making - Medical Decision Making 06/02/19 13:39 78yo M with PMH of HTN, HLD, pre-diabetes, obesity, peripheral neuropathy, chronic intermittent constipation, prostate CA in remission presenting with constipation for 11 days per his 's [employer]. Placement issue, services lapsed, questionable ambulatory status, reporting 2 months of bedbound s/p rehab after February admission. - Flat and Upright Xray 06/02/19 14:12 - CBC, CMP, EKG, UA - Spoke with Dr. Brown's office, no longer a patient there - Touched base with SW, plan for PT evaluation 06/02/19 15:18 - PT recommends short term rehab - Patient is homebound at present Dispo: Admit Med/Surg for rehab placement, generalized weakness, inability to ambulate, failure to thrive Discharge - Discharge Information Problems reviewed: Yes Clinical Impression/Diagnosis: Unable to ambulate, Generalized weakness, Failure to thrive in adult Constipation Qualifiers: Constipation type: unspecified constipation type Qualified Code(s): K59.00 - Constipation, unspecified Condition: Guarded - Follow up/Referral - Patient Discharge Instructions - Post Discharge Activity
--- NOTE | 2019-06-02 14:29 | PDOC ---
Attending Attestation - Resident Resident Name: KapilFredi spearsiel - ED Attending Attestation I have performed the following: I have examined & evaluated the patient, The case was reviewed & discussed with the resident, I agree w/resident's findings & plan - HPI HPI: 06/02/19 14:26 78-year-old male with history of hypertension, high cholesterol, peripheral neuropathy and wheelchair-bound, prostate CA presents from home brought in by home health aide with report of constipation. Patient and reportedly share a private home health aide, she brought patient to the ED today because she believes he has not had a bowel movement in 10 days. Patient has no complaints, has normal appetite and ate full breakfast this morning, does not recall last bowel movement but is passing flatus. Has no abdominal pain or distention, denies any nausea/vomiting. No fevers or chills, normal urine output. - Physicial Exam PE: 06/02/19 14:28 Vitals as noted within normal limits, afebrile Patient lying comfortably in stretcher speaking full sentences, cooperative and following commands, answering questions appropriately Pupils equal round reactive to light, extraocular movements are intact Slightly dry mucosa Heart is regular, lungs are clear Abdomen is soft/nontender/nondistended. No guarding or rebound, bowel sounds are normal, no CVA tenderness Full range of motion of all extremities including legs, superficial left strong excoriation/abrasion without evidence of infection or foreign body. - Medical Decision Making 06/02/19 14:28 78-year-old male wheelchair-bound secondary to peripheral neuropathy, under the care of a home health aide at home presents here for reports of constipation, but has no complaints and no findings on history or physical exam. He is hemodynamically stable with a benign abdominal exam. Include social work and case management Basic labs and abdominal plain film Disposition accordingly 06/02/19 15:32 seen by PT, needs short-term rehab placement. will admit for placement, SW/CM following Heart Score/ECG Review #1 ECG reviewed & interpreted by me at: 14:31 General ECG Interpretation: Sinus Rhythm, Normal Rate (98), Normal Intervals ( 1st degree av block TN 254, qtc 434), No acute ischemic changes (nonspecific T wave flat inf leads) Compared to previous ECG there are: No significant change (c/w 02/16/19)
[2019-06-02 15:06] LABS: ALBUMIN 3.1 g/dl (3.4-5.0); BILIRUBIN,TOTAL 0.4 mg/dL (0.2-1); CALCIUM 9.2 mg/dL (8.5-10.1); CREATININE 0.6 mg/dL (0.55-1.3); POTASSIUM 3.8 mmol/L (3.5-5.1); TOT PROT 6.5 g/dl (6.4-8.2)
--- NOTE | 2019-06-02 15:15 | EKG ---
Test Reason : Blood Pressure : / mmHG Vent. Rate : 098 BPM Atrial Rate : 098 BPM P-R Int : 254 ms QRS Dur : 090 ms QT Int : 340 ms P-R-T Axes : 060 055 038 degrees QTc Int : 434 ms POOR DATA QUALITY, INTERPRETATION MAY BE ADVERSELY AFFECTED SINUS RHYTHM WITH 1ST DEGREE A-V BLOCK LOW VOLTAGE QRS NONSPECIFIC T WAVE ABNORMALITY ABNORMAL ECG WHEN COMPARED WITH ECG OF 16-FEB-2019 13:50, NO SIGNIFICANT CHANGE WAS FOUND Confirmed by Sterling Quigley ([id number]) on 06/02/2019 3:15:19 PM Referred By: Confirmed By:Sterling Quigley
[2019-06-02 15:16] LABS: BASO % 0.9 % (0-2.0); EOS % 1.6 % (0-4.5); HEMATOCRIT 39.3 % (35.4-49); HEMOGLOBIN 13.3 GM/dL (11.7-16.9); LYMPH % 19.3 % (8-40); MCH 30.5 pg (25.7-33.7); MCHC 33.9 g/dl (32.0-35.9); MEAN PLT VOLUME 7.3 fl (7.5-11.1); NEUT % 70.2 % (42.8-82.8); PLATELET COUNT 219 K/MM3 (134-434); RBC 4.36 M/mm3 (4.00-5.60); RDW 15.7 % (11.9-15.9); WHITE BLOOD COUNT 8.1 K/mm3 (4.0-10.0)
--- NOTE | 2019-06-02 16:45 | HP ---
CHIEF COMPLAINT: inability to ambulate. PCP: Dr. Lovett (hasnt seen in 3 years) HISTORY OF PRESENT ILLNESS: Poor historian. No family or aide at bedside. PER ED Documentation: 78-year-old male with history of hypertension, high cholesterol, peripheral neuropathy and wheelchair-bound, prostate CA presents from home brought in by home health aide with report of constipation. Patient and reportedly share a private home health aide, she brought patient to the ED today because she believes he has not had a bowel movement in 10 days. Patient has no complaints, has normal appetite and ate full breakfast this morning, does not recall last bowel movement but is passing flatus. Has no abdominal pain or distention, denies any nausea/vomiting. No fevers or chills, normal urine output. Denies chest pain, fevers, chills, recent illness. ELECTRIC METER TESTER SHOP states that his services lapsed and he still needs assistance which she has been providing. No one is clear on who his new PCP group is. He reports that he has had falls in the past, has used a wheelchair before, has been through rehab. States that his and ELECTRIC METER TESTER SHOP want him to stay in bed and that is why he doesn't ambulate. All: NKDA Meds: Per chart PMH: As above PSH: Denies abdominal surgery, R hip surgery Recent Travel: denies Allergies No Known Allergies Allergy (Verified 02/15/19 10:30) HOME MEDICATIONS: Home Medications Medication Instructions Recorded Finasteride 5 mg PO DAILY 06/02/19 Furosemide 40 mg PO DAILY 06/02/19 Gabapentin 300 mg PO BID 06/02/19 Pravastatin Sodium 20 mg PO DAILY 06/02/19 REVIEW OF SYSTEMS per hpi PHYSICAL EXAMINATION Vital Signs - 24 hr 06/02/19 11:46 Temperature 97.7 F Pulse Rate 99 H Respiratory 20 Rate Blood Pressure 110/75 O2 Sat by Pulse 98 Oximetry (%) GENERAL: a/o x 2, comfortable in NAD HEAD: Normal with no signs of trauma. EYES: Pupils equal, round and reactive to light EARS, NOSE, THROAT: dry mucous membranes NECK: supple without lymphadenopathy, JVD, or masses. LUNGS: cta b/l HEART: Regular rate and rhythm, normal S1 and S2 without murmur, rub or gallop. ABDOMEN: RRR, no murmurs appreciated LOWER EXTREMITIES: 2+ pulses, superficial left strong excoriation/abrasion. R hip stage 2 ulcer. dry r foot heel ulcer Laboratory Results - last 24 hr 06/02/19 06/02/19 14:30 14:30 WBC 8.1 RBC 4.36 Hgb 13.3 Hct 39.3 MCV 90.0 MCH 30.5 MCHC 33.9 RDW 15.7 Plt Count 219 D MPV 7.3 L Absolute Neuts (auto) 5.7 Neutrophils % 70.2 Lymphocytes % 19.3 D Monocytes % 8.0 Eosinophils % 1.6 Basophils % 0.9 Nucleated RBC % 0 Sodium 138 Potassium 3.8 Chloride 104 Carbon Dioxide 28 Anion Gap 6 L BUN 11.0 Creatinine 0.6 Est GFR (CKD-EPI)AfAm 110.83 Est GFR (CKD-EPI)NonAf 95.63 Random Glucose 186 H Calcium 9.2 Total Bilirubin 0.4 AST 14 L ALT 14 Alkaline Phosphatase 74 Total Protein 6.5 Albumin 3.1 L ASSESSMENT/PLAN: 78-year-old male with history of hypertension, high cholesterol, peripheral neuropathy and wheelchair-bound, prostate CA presents from home brought in by home health aide with report of constipation. #Constipation -Abd X ray unremarkable -unremarkable physical exam -bowel regimen #Inability to ambulate/ Failure to thrive -patient deconditioned -PT -PT reccs: Pt. would benefit from short term rehab placement to improve his overall strength and endurance, balance and safety, and to maximize his overall functional mobility before returning home with services. #R hip ulcer stage 2/R heel ulcer -wound care #HTN/HLD #BPH -cont. Finasteride #FEN -no iv fluids -monitor -sodium diet #DVT -hep sq dispo: needs 3 days inpatient stay for SNF placement Visit type - Emergency Visit Emergency Visit: Yes ED Registration Date: 06/02/19 Care time: The patient presented to the Emergency Department on the above date and was hospitalized for further evaluation of their emergent condition. - New Patient This patient is new to me today: Yes Date on this admission: 06/03/19 - Critical Care Critical Care patient: No ATTENDING PHYSICIAN STATEMENT I saw and evaluated the patient. I reviewed the resident's note and discussed the case with the resident. I agree with the resident's findings and plan as documented. SUBJECTIVE: OBJECTIVE: ASSESSMENT AND PLAN:
[2019-06-02] MEDS ORDERED: DOCUSATE SODIUM 100 MG CAPSULE (FP) PO PRN (16:49)
[2019-06-02 21:11] LABS: EPI CELLS 0.3 /HPF (0-5/HPF); HYALINE CASTS 5 /lpf (0-8); URINE APPEARANCE CLEAR; URINE BACTERIA 63.8 /hpf (NEGATIVE); URINE BILIRUBIN NEGATIVE (NEGATIVE); URINE COLOR YELLOW; URINE GLUCOSE (UA) NEGATIVE (NEGATIVE); URINE KETONE NEGATIVE (NEGATIVE); URINE LEUK ESTERASE 2+ (NEGATIVE); URINE NITRITE POSITIVE (NEGATIVE); URINE PROTEIN NEGATIVE (NEGATIVE); URINE UROBILINOGEN 0.2 mg/dL (0.2-1.0); URINE WBC 29 /hpf (0-5)
[2019-06-02] MEDS: GABAPENTIN 300 MG CAPSULE PO SCH (22:40)
[2019-06-02] MEDS: ATORVASTATIN CA 10 MG TABLET (FP) PO SCH (22:40)
[2019-06-02] MEDS: SENNOSIDES 8.6MG TABLET (FP) PO SCH (22:40)
[2019-06-02] MEDS: HEPARIN NA (PORCINE) 5,000 UNITS/ML 1ML VIAL SQ SCH (22:40)
[2019-06-03] MEDS: HEPARIN NA (PORCINE) 5,000 UNITS/ML 1ML VIAL SQ SCH ×3 (05:27→21:37)
[2019-06-03 09:09] LABS: BASO % 0.7 % (0-2.0); EOS % 1.5 % (0-4.5); HEMATOCRIT 41.7 % (35.4-49); LYMPH % 21.1 % (8-40); MCH 30.5 pg (25.7-33.7); MCHC 33.6 g/dl (32.0-35.9); MEAN CELL VOLUME 90.6 fl (80-96); MEAN PLT VOLUME 7.4 fl (7.5-11.1); MONO % 7.5 % (3.8-10.2); NEUT % 69.2 % (42.8-82.8); PLATELET COUNT 251 K/MM3 (134-434); RDW 15.9 % (11.9-15.9); WHITE BLOOD COUNT 6.6 K/mm3 (4.0-10.0)
[2019-06-03] MEDS: GABAPENTIN 300 MG CAPSULE PO SCH ×2 (09:10→21:37)
[2019-06-03] MEDS: FUROSEMIDE 40 MG TABLET (FP) PO SCH (09:10)
[2019-06-03] MEDS: FINASTERIDE 5 MG TABLET (FP) PO SCH (09:10)
[2019-06-03] MEDS: POLYETHYLENE GLYCOL 3350 119 GM BTL PO SCH (09:10)
[2019-06-03 10:16] LABS: ALBUMIN 3.4 g/dl (3.4-5.0); BILIRUBIN,TOTAL 0.6 mg/dL (0.2-1); BLOOD UREA NITROGEN 10.2 mg/dL (7-18); CALCIUM 9.2 mg/dL (8.5-10.1); CREATININE 0.6 mg/dL (0.55-1.3); MAGNESIUM 2.2 mg/dL (1.8-2.4); PHOSPHOROUS 3.6 mg/dL (2.5-4.9); POTASSIUM 3.6 mmol/L (3.5-5.1); TOT PROT 6.8 g/dl (6.4-8.2)
--- NOTE | 2019-06-03 11:02 | PN ---
Physical Exam: SUBJECTIVE: Patient seen and examined. No events overnight. offers no complaints. OBJECTIVE: Vital Signs Period Temp Pulse Resp BP Sys/Espinosa Pulse Ox Last 24 Hr 97.7 F-98.1 F 97-110 18-93 105-122/61-80 94-99 GENERAL: a/o x 2, comfortable in NAD HEAD: Normal with no signs of trauma. EYES: Pupils equal, round and reactive to light EARS, NOSE, THROAT: dry mucous membranes NECK: supple without lymphadenopathy, JVD, or masses. LUNGS: cta b/l HEART: Regular rate and rhythm, normal S1 and S2 without murmur, rub or gallop. ABDOMEN: RRR, no murmurs appreciated LOWER EXTREMITIES: 2+ pulses, superficial left strong excoriation/abrasion. Laboratory Results - last 24 hr 06/02/19 06/02/19 06/02/19 14:30 14:30 20:54 WBC 8.1 RBC 4.36 Hgb 13.3 Hct 39.3 MCV 90.0 MCH 30.5 MCHC 33.9 RDW 15.7 Plt Count 219 D MPV 7.3 L Absolute Neuts (auto) 5.7 Neutrophils % 70.2 Lymphocytes % 19.3 D Monocytes % 8.0 Eosinophils % 1.6 Basophils % 0.9 Nucleated RBC % 0 Sodium 138 Potassium 3.8 Chloride 104 Carbon Dioxide 28 Anion Gap 6 L BUN 11.0 Creatinine 0.6 Est GFR (CKD-EPI)AfAm 110.83 Est GFR (CKD-EPI)NonAf 95.63 Random Glucose 186 H Hemoglobin A1c % Calcium 9.2 Phosphorus Magnesium Total Bilirubin 0.4 AST 14 L ALT 14 Alkaline Phosphatase 74 Total Protein 6.5 Albumin 3.1 L Triglycerides Cholesterol Total LDL Cholesterol HDL Cholesterol Urine Color Yellow Urine Appearance Clear Urine pH 5.0 Ur Specific [place] 1.011 Urine Protein Negative Urine Glucose (UA) Negative Urine Ketones Negative Urine Blood Negative Urine Nitrite Positive H Urine Bilirubin Negative Urine Urobilinogen 0.2 Ur Leukocyte Esterase 2+ H Urine WBC (Auto) 29 Urine Casts (Auto) 5 U Epithel Cells (Auto) 0.3 Urine Bacteria (Auto) 63.8 06/03/19 06/03/19 06/03/19 07:51 07:51 07:51 WBC 6.6 RBC 4.60 Hgb 14.0 Hct 41.7 MCV 90.6 MCH 30.5 MCHC 33.6 RDW 15.9 Plt Count 251 MPV 7.4 L Absolute Neuts (auto) 4.5 Neutrophils % 69.2 Lymphocytes % 21.1 Monocytes % 7.5 Eosinophils % 1.5 Basophils % 0.7 Nucleated RBC % 0 Sodium 141 Potassium 3.6 Chloride 103 Carbon Dioxide 29 Anion Gap 8 BUN 10.2 Creatinine 0.6 Est GFR (CKD-EPI)AfAm 110.83 Est GFR (CKD-EPI)NonAf 95.63 Random Glucose 137 H Hemoglobin A1c % 6.7 H Calcium 9.2 Phosphorus 3.6 Magnesium 2.2 Total Bilirubin 0.6 AST 12 L ALT 14 Alkaline Phosphatase 74 Total Protein 6.8 Albumin 3.4 Triglycerides 174 H Cholesterol 131 Total LDL Cholesterol 69 HDL Cholesterol 38 L Urine Color Urine Appearance Urine pH Ur Specific [place] Urine Protein Urine Glucose (UA) Urine Ketones Urine Blood Urine Nitrite Urine Bilirubin Urine Urobilinogen Ur Leukocyte Esterase Urine WBC (Auto) Urine Casts (Auto) U Epithel Cells (Auto) Urine Bacteria (Auto) Active Medications Generic Name Dose Route Start Last Admin Trade Name Kasia PRN Reason Stop Dose Admin Atorvastatin Calcium 10 mg 06/02/19 22:00 06/02/19 22:40 Lipitor - PO 10 mg HS MOHAMUD Administration Docusate Sodium 100 mg 06/02/19 16:49 Colace - PO BID PRN CONSTIPATION Finasteride 5 mg 06/03/19 10:00 06/03/19 09:10 Proscar - PO 5 mg DAILY MOHAMUD Administration Furosemide 40 mg 06/03/19 10:00 06/03/19 09:10 Lasix - PO 40 mg DAILY MOHAMUD Administration Gabapentin 300 mg 06/02/19 22:00 06/03/19 09:10 Neurontin - PO 300 mg BID MOHAMUD Administration Heparin Sodium (Porcine) 5,000 unit 06/02/19 22:00 06/03/19 05:27 Heparin - SQ 5,000 unit TID MOHAMUD Administration Insulin Aspart 1 vial 06/03/19 11:00 Novolog Vial Sliding Scale - SQ ACHS [facility] Protocol Polyethylene Glycol 17 gm 06/03/19 10:00 06/03/19 09:10 Miralax (For Daily Use) - PO 17 grams DAILY MOHAMUD Administration Senna 1 tab 06/02/19 22:00 06/02/19 22:40 Senna - PO 1 tab HS MOHAMUD Administration ASSESSMENT/PLAN: 78-year-old male with history of hypertension, high cholesterol, peripheral neuropathy and wheelchair-bound, prostate CA presents from home brought in by home health aide with report of constipation. #Constipation -Abd X ray unremarkable -unremarkable physical exam -bowel regimen -no BM yet. #Inability to ambulate -patient deconditioned -PT -PT reccs: Pt. would benefit from short term rehab placement to improve his overall strength and endurance, balance and safety, and to maximize his overall functional mobility before returning home with services. #R hip ulcer stage 2/R heel ulcer -wound care #Newly diagnosed DM -A1c 6.7 -insulin sliding scale -start on PO med when discharged #HTN/HLD #BPH -cont. Finasteride #FEN -no iv fluids -monitor -sodium diet #DVT -hep sq Visit type - Emergency Visit Emergency Visit: Yes ED Registration Date: 06/02/19 Care time: The patient presented to the Emergency Department on the above date and was hospitalized for further evaluation of their emergent condition. - New Patient This patient is new to me today: Yes Date on this admission: 06/03/19 - Critical Care Critical Care patient: No ATTENDING PHYSICIAN STATEMENT I saw and evaluated the patient. I reviewed the resident's note and discussed the case with the resident. I agree with the resident's findings and plan as documented. SUBJECTIVE: OBJECTIVE: ASSESSMENT AND PLAN:
[2019-06-03] MEDS: INSULIN SLIDING SCALE (NOVOLOG) 1 VIAL SQ SCH ×3 (11:08→21:36)
--- NOTE | 2019-06-03 12:56 | PN ---
Teaching Attending Note Name of Resident: Michelle Fam ATTENDING PHYSICIAN STATEMENT I saw and evaluated the patient. I reviewed the resident's note and discussed the case with the resident. I agree with the resident's findings and plan as documented. SUBJECTIVE: Patient complaint of feeling weak OBJECTIVE: Vital Signs Temp 98.0 F 06/03/19 05:50 Pulse 110 H 06/03/19 05:50 Resp 20 06/03/19 05:50 BP 118/61 06/03/19 05:50 Pulse Ox 94 L 06/03/19 01:00 General: Elderly man, comfortable, not in distress HEENT; mucous membranes moist, no anemia, no jaundice, PERRLA, no nystagmus Neck: No JVD, supple, no bruit, thyroid palpably normal, normal carotid pulsations. Chest: Nontender, clear to auscultation bilaterally/bilateral wheezing/ bilateral basal rales. CVS: S1-S2 regular/irregular no murmur/gallop/rub Abdomen: Nondistended, soft, bowel sounds present. Extremities: Sacral and heel decubitus B/L edema., No calf tenderness, pulses present FRIT MIXER AND BURNER: Alert, occasional confusion at baseline ambulates with a wheelchair. CBC, BMP 06/03/19 07:51 06/03/19 07:51 Active Medications Atorvastatin Calcium (Lipitor -) 10 mg PO HS [facility] Last Admin: 06/02/19 22:40 Dose: 10 mg Docusate Sodium (Colace -) 100 mg PO BID PRN PRN Reason: CONSTIPATION Finasteride (Proscar -) 5 mg PO DAILY [facility] Last Admin: 06/03/19 09:10 Dose: 5 mg Furosemide (Lasix -) 40 mg PO DAILY [facility] Last Admin: 06/03/19 09:10 Dose: 40 mg Gabapentin (Neurontin -) 300 mg PO BID [facility] Last Admin: 06/03/19 09:10 Dose: 300 mg Heparin Sodium (Porcine) (Heparin -) 5,000 unit SQ TID [facility] Last Admin: 06/03/19 05:27 Dose: 5,000 unit Insulin Aspart (Novolog Vial Sliding Scale -) 1 vial SQ ACHS [facility]; Protocol Last Admin: 06/03/19 11:08 Dose: 2 units Polyethylene Glycol (Miralax (For Daily Use) -) 17 gm PO DAILY [facility] Last Admin: 06/03/19 09:10 Dose: 17 grams Senna (Senna -) 1 tab PO HS [facility] Last Admin: 06/02/19 22:40 Dose: 1 tab KUB: No obstruction or impaction EK NSR no acute ST changes ASSESSMENT AND PLAN: 78 years old male lives at home history of CA prostate in remission: Peripheral neuropathy, prediabetic dyslipidemia, hypertension, wheelchair-bound presented to ED with worsening weakness inability to transfer from bed to wheelchair as well patient denies any new complaint patient has sacral decubitus and heel decubitus. Yesterday brought in by home health as patient had last BM 10 days ago Impression: Failure to thrive Problem List - Problems (1) Failure to thrive in adult Assessment/Plan: Nutrition consult, PT evaluation possible discharge to [facility]. Problems reviewed: Yes Code(s): R62.7 - ADULT FAILURE TO THRIVE (2) Peripheral neuropathy Assessment/Plan: On gabapentin Problems reviewed: Yes Code(s): G62.9 - POLYNEUROPATHY, UNSPECIFIED (3) HTN (hypertension) Assessment/Plan: Well-controlled continue current management Problems reviewed: Yes Code(s): I10 - ESSENTIAL (PRIMARY) HYPERTENSION (4) HLD (hyperlipidemia) Assessment/Plan: Continue statin Problems reviewed: Yes Code(s): E78.5 - HYPERLIPIDEMIA, UNSPECIFIED (5) Decubitus ulcer Assessment/Plan: Wound care Problems reviewed: Yes Code(s): L89.90 - PRESSURE ULCER OF UNSPECIFIED SITE, UNSPECIFIED STAGE
[2019-06-03] MEDS ORDERED: PT OWN MED DRAWER 7, Y5N ONE (17:13)
[2019-06-03] MEDS ORDERED: INSULIN (NOVOLOG) ASPART 100 UNITS/ML 10ML VIAL ONE (21:24)
[2019-06-03] MEDS: ATORVASTATIN CA 10 MG TABLET (FP) PO SCH (21:37)
[2019-06-03] MEDS: SENNOSIDES 8.6MG TABLET (FP) PO SCH (21:37)
[2019-06-04] MEDS: HEPARIN NA (PORCINE) 5,000 UNITS/ML 1ML VIAL SQ SCH ×3 (05:38→22:35)
[2019-06-04] MEDS ORDERED: INSULIN (NOVOLOG) ASPART 100 UNITS/ML 10ML VIAL ONE ×2 (05:56→16:26)
[2019-06-04] MEDS: INSULIN SLIDING SCALE (NOVOLOG) 1 VIAL SQ SCH ×4 (06:00→22:38)
[2019-06-04] MEDS: FUROSEMIDE 40 MG TABLET (FP) PO SCH (09:27)
[2019-06-04] MEDS: POLYETHYLENE GLYCOL 3350 119 GM BTL PO SCH (09:27)
[2019-06-04] MEDS: FINASTERIDE 5 MG TABLET (FP) PO SCH (09:27)
[2019-06-04] MEDS: GABAPENTIN 300 MG CAPSULE PO SCH ×2 (09:27→22:35)
--- NOTE | 2019-06-04 09:50 | PN ---
Teaching Attending Note Name of Resident: Michelle Fam ATTENDING PHYSICIAN STATEMENT I saw and evaluated the patient. I reviewed the resident's note and discussed the case with the resident. I agree with the resident's findings and plan as documented. SUBJECTIVE: Complaint of left OBJECTIVE: Vital Signs Temperature 97.8 F 06/04/19 06:02 Pulse Rate 90 06/04/19 06:02 Respiratory Rate 20 06/04/19 06:02 Blood Pressure 132/84 06/04/19 06:02 O2 Sat by Pulse Oximetry (%) 97 06/03/19 21:00 General: Elderly man, comfortable, not in distress HEENT; mucous membranes moist, no anemia, no jaundice, PERRLA, no nystagmus Neck: No JVD, supple, no bruit, thyroid palpably normal, normal carotid pulsations. Chest: Nontender, clear to auscultation bilaterally/bilateral wheezing/ bilateral basal rales. CVS: S1-S2 regular/irregular no murmur/gallop/rub Abdomen: Nondistended, soft, bowel sounds present. Extremities: Left hand swollen, no acute inflammation sacral and heel decubitus B/L edema., No calf tenderness, pulses present ENVIRONMENTAL SERVICES DIRECTOR: Alert, occasional confusion at baseline ambulates with a wheelchair. CBC, BMP 06/03/19 07:51 06/03/19 07:51 ASSESSMENT AND PLAN:78 years old male lives at home history of CA prostate in remission: Peripheral neuropathy, prediabetic dyslipidemia, hypertension, wheelchair-bound presented to ED with worsening weakness inability to transfer from bed to wheelchair as well patient denies any new complaint patient has sacral decubitus and heel decubitus. Admitted with constipation and failure to thrive No BM on oral regimen, today disimpacted and widened by the resident we will follow-up KUB Problem List - Problems (1) Failure to thrive in adult Assessment/Plan: Nutrition consult, PT evaluation possible discharge to [facility]. Code(s): R62.7 - ADULT FAILURE TO THRIVE (2) Peripheral neuropathy Assessment/Plan: On gabapentin Code(s): G62.9 - POLYNEUROPATHY, UNSPECIFIED (3) HTN (hypertension) Assessment/Plan: Well-controlled continue current management Code(s): I10 - ESSENTIAL (PRIMARY) HYPERTENSION (4) HLD (hyperlipidemia) Assessment/Plan: Continue statin Code(s): E78.5 - HYPERLIPIDEMIA, UNSPECIFIED (5) Decubitus ulcer Assessment/Plan: Wound care Code(s): L89.90 - PRESSURE ULCER OF UNSPECIFIED SITE, UNSPECIFIED STAGE (6) Constipation Assessment/Plan: Not responding to oral regimen disimpaction done by the resident Problems reviewed: Yes Code(s): K59.00 - CONSTIPATION, UNSPECIFIED Qualifiers: Constipation type: unspecified constipation type Qualified Code(s): K59.00 - Constipation, unspecified (7) Left hand pain Assessment/Plan: Mild swelling no sign of acute inflammation we will follow-up x-ray in 6, consider Motrin as needed Problems reviewed: Yes Code(s): M79.642 - PAIN IN LEFT HAND
--- NOTE | 2019-06-04 10:06 | PN ---
Progress Note (short form) - Note Progress Note: VASCULAR SURGERY 78yo M was consulted to vascular surgery for evaluation of LLE wound. Pt states that he hit his Left strong on something and got a cut a week or so ago. Pt is nonambulatory and also reported to have some pressure wound on his heel. Pt denies fever, chills, n/v. Pt denies h/o vascular disease or surgery. Last Vital Signs Temp Pulse Resp BP Pulse Ox 97.8 F 90 20 132/84 97 06/04/19 06:02 06/04/19 06:02 06/04/19 06:02 06/04/19 06:02 06/03/19 21:00 CBC, BMP 06/03/19 07:51 06/03/19 07:51 PE: Gen: A&O X3 Resp: breathing comfortably Ext: LLE shows 3cm x 1 cm abrasion on anterior strong, some chronic skin hyperpigmentation of anterior strong, no edema, +1 pedal pulses, DPI Lt heel. Problem List - Problems (1) Wound of lower extremity Assessment/Plan: Plan -no need for acute surgical intervention at this time. -bacitracin and clean dressing to abrasion anterior Lt strong -heel protectors and elevate heels Pt may follow up with wound care clinic if wound healing not progressing. Pt discussed with Dr. Zabala, who agrees with plan Code(s): S81.809A - UNSPECIFIED OPEN WOUND, UNSPECIFIED LOWER LEG, INIT ENCNTR
--- NOTE | 2019-06-04 13:43 | PN ---
Physical Exam: SUBJECTIVE: Patient seen and examined. Says he has L hand pain today. says its chronic and had carpal tunnel in the past. OBJECTIVE: Vital Signs Period Temp Pulse Resp BP Sys/Espinosa Pulse Ox Last 24 Hr 97.7 F-98.8 F 71-106 20-20 106-152/63-87 95-97 GENERAL: a/o x 2, comfortable in NAD HEAD: Normal with no signs of trauma. EYES: Pupils equal, round and reactive to light EARS, NOSE, THROAT: dry mucous membranes NECK: supple without lymphadenopathy, JVD, or masses. LUNGS: cta b/l HEART: Regular rate and rhythm, normal S1 and S2 without murmur, rub or gallop. ABDOMEN: RRR, no murmurs appreciated R hand: unable to make fist. tender with palpation. +tinel sign LOWER EXTREMITIES: 2+ pulses, superficial left strong excoriation/abrasion. Laboratory Results - last 24 hr 06/03/19 06/03/19 06/04/19 16:59 21:35 05:40 POC Glucometer 196 191 140 06/04/19 11:06 POC Glucometer 174 Active Medications Generic Name Dose Route Start Last Admin Trade Name Freq PRN Reason Stop Dose Admin Atorvastatin Calcium 10 mg 06/02/19 22:00 06/03/19 21:37 Lipitor - PO 10 mg HS MOHAMUD Administration Docusate Sodium 100 mg 06/02/19 16:49 Colace - PO BID PRN CONSTIPATION Finasteride 5 mg 06/03/19 10:00 06/04/19 09:27 Proscar - PO 5 mg DAILY MOHAMUD Administration Furosemide 40 mg 06/03/19 10:00 06/04/19 09:27 Lasix - PO 40 mg DAILY MOHAMUD Administration Gabapentin 300 mg 06/02/19 22:00 06/04/19 09:27 Neurontin - PO 300 mg BID MOHAMUD Administration Heparin Sodium (Porcine) 5,000 unit 06/02/19 22:00 06/04/19 05:38 Heparin - SQ 5,000 unit TID MOHAMUD Administration Insulin Aspart 1 vial 06/03/19 11:00 06/04/19 11:25 Novolog Vial Sliding Scale - SQ 2 units ACHS MOHAMUD Administration Protocol Polyethylene Glycol 17 gm 06/03/19 10:00 06/04/19 09:27 Miralax (For Daily Use) - PO 17 grams DAILY MOHAMUD Administration Senna 1 tab 06/02/19 22:00 06/03/19 21:37 Senna - PO 1 tab HS MOHAMUD Administration ASSESSMENT/PLAN: 78-year-old male with history of hypertension, high cholesterol, peripheral neuropathy and wheelchair-bound, prostate CA presents from home brought in by home health aide with report of constipation. #Constipation -Abd X ray with rectal fecal impaction consistent with chronic constipation -unremarkable physical exam -bowel regimen. Miralax, colace, senna -will give rectal enema -no BM yet. #R hand pain -xray unremarkable -patient says its chronic -ortho consult #Inability to ambulate -patient deconditioned -PT -PT reccs: Pt. would benefit from short term rehab placement to improve his overall strength and endurance, balance and safety, and to maximize his overall functional mobility before returning home with services. #R hip ulcer stage 2/R heel ulcer -wound care #Newly diagnosed DM -A1c 6.7 -insulin sliding scale -start on PO med when discharged #HTN/HLD #BPH -cont. Finasteride #FEN -no iv fluids -monitor -sodium diet #DVT -hep sq Visit type - Emergency Visit Emergency Visit: Yes ED Registration Date: 06/02/19 Care time: The patient presented to the Emergency Department on the above date and was hospitalized for further evaluation of their emergent condition. - New Patient This patient is new to me today: Yes Date on this admission: 06/04/19 - Critical Care Critical Care patient: No ATTENDING PHYSICIAN STATEMENT I saw and evaluated the patient. I reviewed the resident's note and discussed the case with the resident. I agree with the resident's findings and plan as documented. SUBJECTIVE: OBJECTIVE: ASSESSMENT AND PLAN:
[2019-06-04] MEDS ORDERED: MINERAL OIL ENEMA 133 ML ENEMA PR ONE (15:24)
[2019-06-04] MEDS ORDERED: NAPROXEN 375 MG TABLET PO ONE (16:26)
[2019-06-04 17:33] VITALS: BMI 27.6
[2019-06-04] MEDS: ATORVASTATIN CA 10 MG TABLET (FP) PO SCH (22:35)
[2019-06-04] MEDS: SENNOSIDES 8.6MG TABLET (FP) PO SCH (22:35)
[2019-06-05] MEDS: HEPARIN NA (PORCINE) 5,000 UNITS/ML 1ML VIAL SQ SCH (06:28)
[2019-06-05] MEDS: INSULIN SLIDING SCALE (NOVOLOG) 1 VIAL SQ SCH ×2 (06:28→11:56)
[2019-06-05 08:08] LABS: BASO % 0.7 % (0-2.0); EOS % 2.7 % (0-4.5); HEMATOCRIT 41.8 % (35.4-49); HEMOGLOBIN 14.1 GM/dL (11.7-16.9); LYMPH % 29.5 % (8-40); MCH 30.4 pg (25.7-33.7); MCHC 33.7 g/dl (32.0-35.9); MEAN CELL VOLUME 90.4 fl (80-96); MEAN PLT VOLUME 7.4 fl (7.5-11.1); MONO % 7.8 % (3.8-10.2); NEUT % 59.3 % (42.8-82.8); PLATELET COUNT 225 K/MM3 (134-434); RBC 4.63 M/mm3 (4.00-5.60); RDW 15.8 % (11.9-15.9)
[2019-06-05 08:34] LABS: ALBUMIN 3.4 g/dl (3.4-5.0); BILIRUBIN,TOTAL 0.6 mg/dL (0.2-1); BLOOD UREA NITROGEN 11.5 mg/dL (7-18); CALCIUM 9.1 mg/dL (8.5-10.1); CREATININE 0.6 mg/dL (0.55-1.3); POTASSIUM 3.8 mmol/L (3.5-5.1); TOT PROT 6.7 g/dl (6.4-8.2)
--- NOTE | 2019-06-05 08:46 | PN ---
Teaching Attending Note Name of Resident: Michelle Fam ATTENDING PHYSICIAN STATEMENT I saw and evaluated the patient. I reviewed the resident's note and discussed the case with the resident. I agree with the resident's findings and plan as documented. SUBJECTIVE: OBJECTIVE: Vital Signs Temperature 97.5 F L 06/05/19 06:37 Pulse Rate 81 06/05/19 06:37 Respiratory Rate 20 06/05/19 06:37 Blood Pressure 127/87 06/05/19 06:37 O2 Sat by Pulse Oximetry (%) 95 06/04/19 21:00 General: Elderly man, comfortable, not in distress HEENT; mucous membranes moist, no anemia, no jaundice, PERRLA, no nystagmus Neck: No JVD, supple, no bruit, thyroid palpably normal, normal carotid pulsations. Chest: Nontender, clear to auscultation bilaterally/bilateral wheezing/ bilateral basal rales. CVS: S1-S2 regular/irregular no murmur/gallop/rub Abdomen: Nondistended, soft, bowel sounds present. Extremities: Left hand swollen, no acute inflammation sacral and heel decubitus B/L edema., No calf tenderness, pulses present IDENTIFICATION CLERK: Alert, occasional confusion at baseline ambulates with a wheelchair. X-ray left hand: Osteoarthritis no fracture CBC, BMP 06/05/19 06:45 06/05/19 06:45 ASSESSMENT AND PLAN:78 years old male lives at home history of CA prostate in remission: Peripheral neuropathy, prediabetic dyslipidemia, hypertension, wheelchair-bound presented to ED with worsening weakness inability to transfer from bed to wheelchair as well patient denies any new complaint patient has sacral decubitus and heel decubitus. Admitted with constipation and failure to thrive Problem List - Problems (1) Failure to thrive in adult Assessment/Plan: Nutrition consult, PT evaluation possible discharge to [facility]. Code(s): R62.7 - ADULT FAILURE TO THRIVE (2) Peripheral neuropathy Assessment/Plan: On gabapentin Code(s): G62.9 - POLYNEUROPATHY, UNSPECIFIED (3) HTN (hypertension) Assessment/Plan: Well-controlled continue current management Code(s): I10 - ESSENTIAL (PRIMARY) HYPERTENSION (4) HLD (hyperlipidemia) Assessment/Plan: Continue statin Code(s): E78.5 - HYPERLIPIDEMIA, UNSPECIFIED (5) Decubitus ulcer Assessment/Plan: Wound care Code(s): L89.90 - PRESSURE ULCER OF UNSPECIFIED SITE, UNSPECIFIED STAGE (6) Constipation Assessment/Plan: Not responding to oral regimen disimpaction done by the resident Code(s): K59.00 - CONSTIPATION, UNSPECIFIED Qualifiers: Constipation type: unspecified constipation type Qualified Code(s): K59.00 - Constipation, unspecified (7) Left hand pain Assessment/Plan: Mild swelling no sign of acute inflammation we will follow-up x-ray in 6, consider Motrin as needed Code(s): M79.642 - PAIN IN LEFT HAND
[2019-06-05] MEDS ORDERED: LACTULOSE 20 GM/30 ML UDC (FOR ORAL USE ONLY) PO PRN (09:02)
--- NOTE | 2019-06-05 09:19 | CON.ORTH ---
Consult Reason for Consultation:: left hand pain - Past Medical History Cardio/Vascular: Yes: HTN Renal/: Yes: Other (prostate cancer) Musculoskeletal: Yes: Other (neuropathy) Endocrine: Yes: Diabetes Mellitus (diet controlled) - Past Surgical History Past Surgical History: Yes: Joint Replacement (R hip) - Alcohol/Substance Use Hx Alcohol Use: No History of Substance Use: reports: None - Smoking History Smoking history: Former smoker Have you smoked in the past 12 months: No Aproximately how many cigarettes per day: 0 If you are a former smoker, when did you quit?: 1997 - Social History ADL: Family Assistance History of Recent Travel: No Home Medications - Allergies Allergies/Adverse Reactions: Allergies Allergy/AdvReac Type Severity Reaction Status Date / Time No Known Allergies Allergy Verified 02/15/19 10:30 - Home Medications Home Medications: Ambulatory Orders Finasteride 5 mg PO DAILY 06/02/19 Furosemide 40 mg PO DAILY 06/02/19 Gabapentin 300 mg PO BID 06/02/19 Pravastatin Sodium 20 mg PO DAILY 06/02/19 Lactulose (Oral Use) [Cephulac -] 20 gm PO TID PRN udc 06/05/19 Polyethylene Glycol 3350 [Miralax 119 gm Btl -] 17 gm PO BID bottle 06/05/19 Sennosides [Senna -] 1 tab PO HS tablet 06/05/19 Sitagliptin Phosphate [Januvia] 50 mg PO DAILY #30 tablet 06/05/19 Physical Exam for Ortho Vital Signs: Vital Signs Temperature 97.5 F L 06/05/19 06:37 Pulse Rate 81 06/05/19 06:37 Respiratory Rate 20 06/05/19 06:37 Blood Pressure 127/87 06/05/19 06:37 O2 Sat by Pulse Oximetry (%) 95 06/04/19 21:00 Labs: CBC, BMP 06/05/19 06:45 06/05/19 06:45 - Upper Extremity Hand: Yes: Left, Pain, Swelling, Other (+thenay atrophy, diffuse ttp, decr flexion in all fingers, + numbness and decr sensation in median nerve distribution, + phalens) Imaging - Results X-ray: Image Reviewed Assessment/Plan 78-year-old male with history of hypertension, high cholesterol, peripheral neuropathy and wheelchair-bound, prostate CA presents from home brought in by home health aide with report of constipation. Patient and reportedly share a private home health aide, she brought patient to the ED because she believes he has not had a bowel movement in 10 days. Patient has no complaints , has normal appetite and ate full breakfast this morning, does not recall last bowel movement but is passing flatus. Has no abdominal pain or distention, denies any nausea/vomiting. No fevers or chills, normal urine output. Pt c/o left hand/wrist pain for sometime. Pt cannot recall when it first started. + numbness and tingling. Pt states that t he pain is improving. a/p left hand chronic severe cts, left wrist severe DJD wrist splint ordered ROM exercises pain control ok to d/c from ortho pov f/u as outpt if symptoms persist d/w Dr. Pizarro
[2019-06-05] MEDS: FINASTERIDE 5 MG TABLET (FP) PO SCH (09:42)
[2019-06-05] MEDS: GABAPENTIN 300 MG CAPSULE PO SCH (09:42)
[2019-06-05] MEDS: FUROSEMIDE 40 MG TABLET (FP) PO SCH (09:42)
[2019-06-05] MEDS ORDERED: POLYETHYLENE GLYCOL 3350 119 GM BTL PO SCH (10:00)
[2019-06-05 10:39] VITALS: BP 116/77; PULSE 89; TEMP 98.3
--- NOTE | 2019-06-05 11:20 | DS ---
Physical Exam: SUBJECTIVE: Patient seen and examined. Offers no new complaints. no events overnight. OBJECTIVE: Vital Signs Period Temp Pulse Resp BP Sys/Espinosa Pulse Ox Last 24 Hr 97.5 F-98.3 F 81-91 19-20 116-127/71-87 95-95 PHYSICAL EXAM GENERAL: a/o x 2, comfortable in NAD HEAD: Normal with no signs of trauma. EYES: Pupils equal, round and reactive to light EARS, NOSE, THROAT: dry mucous membranes NECK: supple without lymphadenopathy, JVD, or masses. LUNGS: cta b/l HEART: Regular rate and rhythm, normal S1 and S2 without murmur, rub or gallop. ABDOMEN: RRR, no murmurs appreciated R hand: unable to make fist. tender with palpation. +tinel sign LOWER EXTREMITIES: 2+ pulses, superficial left strong excoriation/abrasion. LABS Laboratory Results - last 24 hr 06/04/19 06/04/19 06/04/19 13:40 13:40 16:20 WBC RBC Hgb Hct MCV MCH MCHC RDW Plt Count MPV Absolute Neuts (auto) Neutrophils % Lymphocytes % Monocytes % Eosinophils % Basophils % Nucleated RBC % ESR 34 H Sodium Potassium Chloride Carbon Dioxide Anion Gap BUN Creatinine Est GFR (CKD-EPI)AfAm Est GFR (CKD-EPI)NonAf POC Glucometer 162 Random Glucose Calcium Total Bilirubin AST ALT Alkaline Phosphatase C-Reactive Protein 1.3 H Total Protein Albumin 06/04/19 06/05/19 06/05/19 22:38 06:02 06:45 WBC 5.0 RBC 4.63 Hgb 14.1 Hct 41.8 MCV 90.4 MCH 30.4 MCHC 33.7 RDW 15.8 Plt Count 225 MPV 7.4 L Absolute Neuts (auto) 2.9 Neutrophils % 59.3 Lymphocytes % 29.5 D Monocytes % 7.8 Eosinophils % 2.7 Basophils % 0.7 Nucleated RBC % 0 ESR Sodium Potassium Chloride Carbon Dioxide Anion Gap BUN Creatinine Est GFR (CKD-EPI)AfAm Est GFR (CKD-EPI)NonAf POC Glucometer 172 125 Random Glucose Calcium Total Bilirubin AST ALT Alkaline Phosphatase C-Reactive Protein Total Protein Albumin 06/05/19 06:45 WBC RBC Hgb Hct MCV MCH MCHC RDW Plt Count MPV Absolute Neuts (auto) Neutrophils % Lymphocytes % Monocytes % Eosinophils % Basophils % Nucleated RBC % ESR Sodium 140 Potassium 3.8 Chloride 103 Carbon Dioxide 30 Anion Gap 7 L BUN 11.5 Creatinine 0.6 Est GFR (CKD-EPI)AfAm 110.83 Est GFR (CKD-EPI)NonAf 95.63 POC Glucometer Random Glucose 117 H Calcium 9.1 Total Bilirubin 0.6 AST 12 L ALT 14 Alkaline Phosphatase 75 C-Reactive Protein Total Protein 6.7 Albumin 3.4 HOSPITAL COURSE: Date of Admission:06/02/19 78-year-old male with history of hypertension, high cholesterol, peripheral neuropathy and wheelchair-bound, prostate CA presents from home brought in by home health aide with report of constipation. #Constipation -s/p manual disimpaction -Abd X ray with rectal fecal impaction consistent with chronic constipation -bowel regimen. Miralax, colace, senna, lactulose #R hand pain -left hand chronic severe cts, left wrist severe DJD per ortho -ortho consulted. wrist splint ordered #Inability to ambulate -patient deconditioned -PT reccs: Pt. would benefit from short term rehab placement to improve his overall strength and endurance, balance and safety, and to maximize his overall functional mobility before returning home with services. #R hip ulcer stage 2/R heel ulcer - cont wound care #Newly diagnosed DM -A1c 6.7 -start Januvia on discharge #HLD #BPH -cont. Finasteride Date of Discharge: 06/05/19 Minutes to complete discharge: 35 Discharge Summary Problems reviewed: Yes Reason For Visit: WEAKNESS;UNABLE TO WALK;FAILURE TO THRIVE IN ADULT Current Active Problems Constipation (Acute) Decubitus ulcer (Acute) Failure to thrive in adult (Acute) Generalized weakness (Acute) Left hand pain (Acute) Unable to ambulate (Acute) Condition: Stable - Instructions Diet, Activity, Other Instructions: You were admitted because of weakness. We have started you on a new diabetes medication because your A1C was 6.7. You have some pressure ulcers that will require proper care. Please follow up with your primary care doctor in 1 week. Referrals: Bj Moreno MD [Staff Physician] - 1 Week Howard Zabala DO [Staff Physician] - 1 Week (WOUND CARE) Disposition: [facility] - Home Medications Comprehensive Discharge Medication List: Ambulatory Orders Finasteride 5 mg PO DAILY 06/02/19 Furosemide 40 mg PO DAILY 06/02/19 Gabapentin 300 mg PO BID 06/02/19 Pravastatin Sodium 20 mg PO DAILY 06/02/19 Lactulose (Oral Use) [Cephulac -] 20 gm PO TID PRN udc 06/05/19 Polyethylene Glycol 3350 [Miralax 119 gm Btl -] 17 gm PO BID bottle 06/05/19 Sennosides [Senna -] 1 tab PO HS tablet 06/05/19 Sitagliptin Phosphate [Januvia] 50 mg PO DAILY #30 tablet 06/05/19 This patient is new to me today: Yes Date on this admission: 06/05/19 Emergency Visit: Yes ED Registration Date: 06/02/19 Care time: The patient presented to the Emergency Department on the above date and was hospitalized for further evaluation of their emergent condition. Critical Care patient: No - Discharge Referral Referred to [facility] Med P.C.: No ATTENDING PHYSICIAN STATEMENT I saw and evaluated the patient. I reviewed the resident's note and discussed the case with the resident. I agree with the resident's findings and plan as documented. SUBJECTIVE: OBJECTIVE: ASSESSMENT AND PLAN:
[2019-06-05] MEDS ORDERED: DOCUSATE SODIUM 100 MG CAPSULE (FP) PO SCH (14:00)
== END 2019-06-05 14:13 | DRG 388 ==
LOC: JER 11:29 → JERBED 15:16 → J6S 23:33
PROVIDERS: ADMIT Internal Medicine; ATTEND Internal Medicine
DX: K56.41 Fecal impaction (principal); L89.153 Pressure ulcer of sacral region, stage 3; I10 Essential (primary) hypertension; E78.5 Hyperlipidemia, unspecified; R73.03 Prediabetes; N40.0 Benign prostatic hyperplasia without lower urinary tract symptoms; G62.9 Polyneuropathy, unspecified; E66.9 Obesity, unspecified; Z68.26 Body mass index [BMI] 26.0-26.9, adult; R62.7 Adult failure to thrive; M19.032 Primary osteoarthritis, left wrist; L89.90 Pressure ulcer of unspecified site, unspecified stage; L89.152 Pressure ulcer of sacral region, stage 2; Z99.3 Dependence on wheelchair; Z87.891 Personal history of nicotine dependence; Z85.46 Personal history of malignant neoplasm of prostate; Z96.641 Presence of right artificial hip joint
CPT/HCPCS: 36415; 73110-TC-LT-FY; 73130-TC-LT-FY; 74019-TC-FY; 80053; 80061; 81003; 82962; 83036; 83721; 83735; 84100; 85025; 85651; 86140; 93005; 93010; 97162-GP; 99284-25; J1644